=== PATIENT | male | born 1945 | race Caucasian/White ===

== ENCOUNTER 2024-07-06 18:43 | Emergency (ER) | payer MEDICARE, BC, SELFPAY ==
[2024-07-06 19:05] VITALS: BP 125/83; PULSE 104; RESP 18; TEMP 36.6; O2SAT 94; BMI 38.4
[2024-07-06 19:56] LABS: PCR FLU A Negative PCR FLU A (Negative); PCR FLU B Negative PCR FLU B (Negative); PCR RSV Negative PCR RSV (Negative); SARS PCR* Negative SARS-CoV-2 (Negative)
--- NOTE | 2024-07-06 20:27 | ED.GENADULT ---
HPI - General Adult General Chief complaint: Nausea/Vomiting Stated complaint: vomiting Time Seen by Provider: 07/06/24 20:26 History of Present Illness HPI narrative: Patient began to have cough and sore throat , then developed nausea and vomiting a day later. This has been since Thursday. Endorse lower generalized abdominal pain. No fevers. 79-year-old man presenting to the emergency department with complaint of vomiting and diarrhea. Symptoms began for 5 days ago with some cough and sore throat both of which have markedly improved. Is not short of breath not dizzy nor with chest pain. Three days ago developed nausea then vomiting and diarrhea the. This seemed to get better and then returned again this evening. Was having some abdominal pain across the low abdomen but particularly when he would just bend over. Maybe initially felt a little chilled but has not felt so since number as the measured a fever. No rashes. No particular exposures. was concerned in particular when tried to take some soup today and this came back up. He has been experience some heartburn and this seems to be part of the problem. No history abdominal surgeries. Is not feeling lightheaded. Did take a dose of loperamide maybe a couple days ago. Related Data Home Medications ?Medication ?Instructions ?Recorded ?Confirmed amlodipine 10 mg tablet 10 mg PO DAILY 07/06/24 07/06/24 atorvastatin 10 mg tablet 10 mg PO DAILY 07/06/24 07/06/24 finasteride 5 mg tablet 5 mg PO DAILY 07/06/24 07/06/24 glimepiride 2 mg tablet 2 mg PO DAILY 07/06/24 07/06/24 hydrochlorothiazide 25 mg tablet 25 mg PO DAILY 07/06/24 07/06/24 ketoconazole 2 % topical cream 1 applic topical 07/06/24 lisinopril 20 mg tablet 20 mg PO DAILY 07/06/24 07/06/24 metformin 500 mg tablet,extended 1,000 mg PO BID 07/06/24 07/06/24 release 24 hr metoprolol succinate 50 mg 50 mg PO DAILY 07/06/24 07/06/24 tablet,extended release 24 hr oxybutynin chloride 5 mg tablet 5 mg PO 3XD 07/06/24 07/06/24 timolol maleate 0.5 % eye drops drp ophthalmic (eye) 07/06/24 trazodone 50 mg tablet 100 mg PO QPM PRN 07/06/24 07/06/24 Allergies Allergy/AdvReac Type Severity Reaction Status Date / Time No Known Drug Allergies Allergy Verified 07/06/24 19:04 Review of Systems Status of ROS: Reports: 6 or more systems reviewed and unremarkable except as noted in History and below Exam Narrative: Exam Narrative: New pleasant. Tall. NAD. Breathing easily. Lungs are clear. With deep inspiratory effort cough a little bit. Oropharynx is edentulous. Hyperemic. Lips are moist. Cranial nerves 2-12 intact. Easily conversing. Heart in elevated rate but regular rhythm. Abdomen protuberant soft and not really tender. Present, normal bowel sounds. Post surgical scars in knees. No rashes noted. Well-perfused peripherally there is no lower extremity edema. Const: Vital Signs, click to edit/add: Vital Signs - 24 hr 07/06/24 19:05 Temperature 97.9 F Pulse Rate [Pulse Oximeter] 104 H Respiratory Rate 18 Blood Pressure [Ri ght Upper Arm] 125/83 Pulse Oximetry 94 Oxygen Delivery Me thod Room Air Documenting provider has reviewed patient's vital signs: yes Course Vital Signs Vital signs: Initial Vital Signs Temperature 97.9 F 07/06/24 19:05 Temperature Source Temporal Artery Scan 07/06/24 19:05 Pulse Rate 104 H 07/06/24 19:05 Respiratory Rate 18 07/06/24 19:05 Blood Pressure 125/83 07/06/24 19:05 Blood Pressure Mean 97 07/06/24 19:05 Pulse Oximetry 94 07/06/24 19:05 Oxygen Delivery Method Room Air 07/06/24 19:05 Vital Signs Temperature 97.9 F 07/06/24 19:05 Pulse Rate 104 H 07/06/24 19:05 Respiratory Rate 18 07/06/24 19:05 Blood Pressure 125/83 07/06/24 19:05 Pulse Oximetry 94 07/06/24 19:05 Oxygen Delivery Method Room Air 07/06/24 19:05 Temperature 97.9 F 07/06/24 19:05 Pulse Rate 104 H 07/06/24 19:05 Respiratory Rate 18 07/06/24 19:05 Blood Pressure 125/83 07/06/24 19:05 Pulse Oximetry 94 07/06/24 19:05 Oxygen Delivery Method Room Air 07/06/24 19:05 Medications Administered Medications: Discontinued Medications Generic Name Dose Route Start Last Admin Trade Name Thaddeus PRN Reason Stop Dose Admin Lidocaine/Aluminum/Magnesium/Simeth 30 ml 07/06/24 20:37 07/06/24 20:44 Gi Cocktail (Visc Lido/Antacid) 30 Ml PO 07/06/24 20:38 30 ml ONCE ONE Administration Ondansetron HCl 4 mg 07/06/24 20:37 07/06/24 20:44 Ondansetron Odt 4 Mg Tab PO 07/06/24 20:38 4 mg ONCE ONE Administration Medical Decision Making MDM Narrative Medical decision making narrative: Appears to have gastroenteritis NOS. I am reassured by presence of both vomiting and diarrhea. Do not think has a bowel obstruction. By the time I am seeing Mr. Chavez has tested negative for COVID and influenza. Seems less to be a colitis. Does have underlying history of diabetes which would otherwise be of concern. Did check his blood sugar yesterday at 245 Upon further questioning, has actually been keeping fluids down generally he feels. Discussed oral trial verses IV. After discussion decided to try oral challenge with Zofran and a GI cocktail. Might need loperamide. COVID negative Overall is improved on reassessment and is handling oral intake. Medical Records Medical records reviewed: Yes I reviewed the patient's medical records Lab Data Lab results reviewed: Yes I reviewed the patient's lab results Labs: Lab Results 07/06/24 Range/Units 19:10 SARS-CoV-2 (PCR) Negative SARS-CoV-2 (Negative) Influenza Type A (PCR) Negative PCR FLU A (Negative) Influenza Type B (PCR) Negative PCR FLU B (Negative) RSV (PCR) Negative PCR RSV (Negative) Discharge Plan Discharge Clinical Impression: Vomiting, Diarrhea, Gastritis Patient Disposition: Home w/ Parent or Adult Condition: Improved Instructions: Acute Abdominal Pain (ED) Additional Instructions: I am happy you have managed to keep some food down. Sending you with Zofran for nausea from [facility]. Might try a liquid antacid/anti-gas for heartburn. Can take more loperamide for diarrhea if needed as long as no blood in stool or experiencing a fever. Try to take in a L of fluid yet today. Start with diluted juices, soup broths. Then can advance diet further with rice, applesauce, toast, crackers Return for inability to maintain hydration, intractable vomiting or diarrhea, development now of fever, marked increase in persistent abdominal pain, persistent lightheadedness. Prescriptions: No Action trazodone 50 mg tablet 100 mg PO QPM PRN atorvastatin 10 mg tablet 10 mg PO DAILY metoprolol succinate 50 mg tablet extended release 24 hr 50 mg PO DAILY lisinopril 20 mg tablet 20 mg PO DAILY glimepiride 2 mg tablet 2 mg PO DAILY amlodipine 10 mg tablet 10 mg PO DAILY hydrochlorothiazide 25 mg tablet 25 mg PO DAILY timolol maleate 0.5 % drops ophthalmic (eye) ketoconazole 2 % cream 1 applic topical oxybutynin chloride 5 mg tablet 5 mg PO 3XD metformin 500 mg tablet extended release 24 hr 1,000 mg PO BID finasteride 5 mg tablet 5 mg PO DAILY Follow Up/Referrals: Tino Sigala MD [Primary Care Provider] - Stand Alone Forms: [facility] Info Instructions
[2024-07-06] MEDS: GI COCKTAIL (VISC LIDO/ANTACID) 30 ML PO (20:44)
[2024-07-06] MEDS: ONDANSETRON ODT 4 MG TAB PO (20:44)
== END 2024-07-06 21:54 | disposition home or self-care (01) ==
PROVIDERS: Emergency Provider Family Medicine; PCP Family Medicine
DX: R11.10 Vomiting, unspecified (principal); R19.7 Diarrhea, unspecified; K29.70 Gastritis, unspecified, without bleeding
CPT/HCPCS: 87631; 99283; 99284; A9270

== ENCOUNTER 2024-07-08 14:12 | Inpatient (IN) | payer MEDICARE, BC, SELFPAY ==
[2024-07-08] VITALS (10 sets, daily range): BP systolic 98–182; BP diastolic 66–90; PULSE 83–107; RESP 18–24; TEMP 36.8–37.3; O2SAT 89–96; BMI 36.9
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
--- NOTE | 2024-07-08 14:48 | CRLHL7_ITS ---
For Patients: As a result of the Century Cures Act, medical imaging exams and procedure reports are released immediately into your electronic medical record. You may view this report before your referring provider. If you have questions, please contact your health care provider. INDICATION: Vomiting, distention.. TECHNIQUE: CT abdomen and pelvis acquired with 135 cc Omnipaque 350 IV contrast. COMPARISON: None. FINDINGS: Lower chest: Tubular consolidation in the left lower lobe likely atelectasis or scarring. Ground-glass opacities in the right lower lobe likely atelectasis or scarring. Liver: Hepatic steatosis. No suspicious hepatic lesions identified. Gallbladder and bile ducts: Unremarkable. No stones or inflammation. No biliary dilatation. Pancreas: Unremarkable. No mass or inflammation. Spleen: Unremarkable. Normal in size. No masses. Adrenal glands: Nodular thickening of the left adrenal gland. Kidneys: No hydronephrosis or hydroureter. No renal or ureteral stones. GI tract: Mildly dilated loops of small bowel without definite transition point. The small bowel demonstrates a few areas of mild bowel wall thickening may represent peristalsis versus inflammation within these areas. Appendix is not well visualized. Mild thickening and fluid within the distal esophagus. Vasculature: Abdominal aorta is normal in caliber. Mesenteric arteries are patent. Calcific atherosclerosis of the aorta and iliac vessels. Lymph nodes: No lymphadenopathy. Peritoneum/Abdominal Wall: Unremarkable. No sign of mass or infiltration. No free air or significant free fluid. Pelvis: Unremarkable. Bones: Mild demineralization of the visualized bones. Multilevel degenerative changes in the spine. Fixation screws in the right ilium. Bilateral hip degenerative changes. IMPRESSION: 1. mildly dilated loops of small bowel proximally with distal tapering in the left mid abdomen without definite transition point. There are a couple areas of mild small bowel wall thickening which may be related to peristalsis or focal areas of infection/inflammation. 2. Mild thickening in the distal esophagus with small fluid, which may be related to esophagitis. The fluid is an aspiration risk. 3. Hepatic steatosis. Please note that all CT scans at this facility use dose modulation, iterative reconstruction, and/or weight-based dosing when appropriate to reduce radiation dose to as low as reasonably achievable. Dictated by Toni Son MD @ 07/08/2024 4:45:04 PM (Electronically Signed)
[2024-07-08 15:03] LABS: Basophils Percent Auto 0.1 % (0.0-3.0); Eosinophils Percent Auto 0.1 % (0.0-7.0); Hematocrit 46.5 % (37.0-53.0); Hemoglobin* 15.3 gm/dL (13.5-17.5); Lymphocytes Percent Auto 11.5 % (20-44); Mean Corpuscular HGB Conc 33 gm/dL (32-36); Mean Corpuscular Hemoglobin 28 pg (26-34); Mean Corpuscular Volume 86 fL (80-100); Monocytes Percent Auto 10.4 % (0.0-11.0); Neutrophils Percent Auto 76.9 % (42.0-72.0); Platelet Count* 404 K/uL (140-440); RDW Coefficient of Variation % 13.3 % (11.5-15.5); Red Blood Count 5.41 m/uL (4.30-5.90); White Blood Count* 13.78 K/uL (4.50-11.00)
[2024-07-08 15:06] LABS: Slide Review Reflex No
[2024-07-08 15:17] LABS: Albumin* 4.4 g/dL (3.3-5.0); Chloride* 100 mmol/L (96-114); Potassium* 3.6 mmol/L (3.6-5.1); Sodium* 141 mmol/L (135-149)
[2024-07-08 15:19] LABS: Anion Gap 14 mEq/L (7-15); Bilirubin Total* 0.9 mg/dL (0.1-1.5); Carbon Dioxide* 27 mmol/L (20-32); Creatinine* 1.5 mg/dL (0.5-1.5); Estimated Glomerular Filt Rate 47 ml/min
[2024-07-08 15:20] LABS: Alanine Aminotransferase* 33 U/L (4-50); Alkaline Phosphatase* 87 U/L (40-150); Aspartate Amino Transferase* 32 U/L (12-35); Blood Urea Nitrogen* 59 mg/dL (7-30); Calcium* 9.3 mg/dL (8.4-10.6); Glucose* 145 mg/dL (60-115); Lipase* 293 U/L (23-300); Total Protein* 7.7 g/dL (6.0-8.3)
[2024-07-08] MEDS: ONDANSETRON 2 MG/ML inj 4 MG IVP (15:20)
[2024-07-08] MEDS: PANTOPRAZOLE SODIUM 40 MG INJ IVP (15:20)
[2024-07-08] MEDS: 0.9 % SODIUM CHLORIDE 1000 ml 1,000 ML IV ×2 (15:28→17:28)
[2024-07-08 15:37] LABS: Troponin I* < 0.01 ng/mL (0.01-0.04)
[2024-07-08 17:37] LABS: Lactate* 2.5 mmol/L (0.5-1.9)
[2024-07-08] MEDS: GI COCKTAIL (VISC LIDO/ANTACID) 30 ML PO (17:38)
[2024-07-08] MEDS: METOCLOPRAMIDE HCL 5 MG/ML INJ 10 MG IVP (17:38)
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
[2024-07-08] MEDS: LACTATED RINGERS 1000 ML 1,000 ML IV (19:00)
[2024-07-08 19:05] LABS: Appearance Urine Clear (Clear); Bilirubin Urine Negative (Negative); Blood Urine Negative (Negative); Color Urine Yellow (Yellow); Glucose Urine Negative (Negative); Ketones Urine Negative (Negative); Leukocyte Esterase Urine Negative (Negative); Nitrite Urine Negative (Negative); Protein Urine Negative (Negative); Urobilinogen Urine 0.2 (0.2-1.0); pH Urine 6.5 (5.0-8.5)
[2024-07-08 19:22] LABS: RBC Urine 0-2 (0-2); WBC Urine 0-2 (0-5)
--- NOTE | 2024-07-08 19:51 | PM.EN ---
Chart Event Note Chart Event Note: Asked to review CT by hospitalist - patient with N/V x 5 days with diarrhea previously. is passing gas. Lactate elevated, was mildly tachycardic on presentation but also appears to be dehydrated. CT shows dilated proximal small bowel and stomach without a clear transition point. Patient does not appear acutely ill per hospitalist, abdomen is soft. Recommend NPO status and following lactate unless clinica picture worsens.
--- NOTE | 2024-07-08 20:12 | PC.NURSE ---
End of Shift: Patient pleasant and cooperative arrived to the floor about 1836. Patient hypertensive upon admission but stable and denies pain, urine sample collected upon admission.Patient SBA with cane. Patient currently has bolus running, IV patent.
[2024-07-08] MEDS: OMEPRAZOLE 20 MG CAPSULE DR PO (20:26)
[2024-07-08] MEDS: LACTATED RINGERS 1000 ML 1,000 ML 125 ML IV (20:27)
--- NOTE | 2024-07-08 20:59 | PC.NURSE ---
Bladder scan was 250ml and pt was able urinate 200ml.
[2024-07-09] VITALS (8 sets, daily range): BP systolic 134–160; BP diastolic 79–95; PULSE 81–103; RESP 16–20; TEMP 36.5–37.2; O2SAT 92–96
[2024-07-09] MEDS: LACTATED RINGERS 1000 ML 1,000 ML 125 ML IV ×3 (05:27→22:02)
--- NOTE | 2024-07-09 05:41 | PC.NURSE ---
Shift note: Pt had three BM, 1 small formed at 2100 and 2 large loose stools from 0300 to 0500. Pt vomited 1x and sample sent to lab. Blood sugar level at 2100 was 77, down from 84 at 1900. MD informed and asked to give fruit juice despite NPO status. Blood sugar rechecked at 2200 was 70. Fruit juice repeated and rechecked again at 2300 was 100. Ambulated with SBA in room to BR. Vitally stable. Pt has been on CPAP throughout the night.
[2024-07-09 05:55] LABS: Gastric Occult Blood* Negative (Negative)
[2024-07-09] MEDS: OMEPRAZOLE 20 MG CAPSULE DR PO (06:34)
[2024-07-09 06:53] LABS: Lactate* 1.6 mmol/L (0.5-1.9)
[2024-07-09 06:54] LABS: Basophils Percent Auto 0.3 % (0.0-3.0); Eosinophils Percent Auto 0.1 % (0.0-7.0); Hematocrit 46.6 % (37.0-53.0); Hemoglobin* 15.2 gm/dL (13.5-17.5); Immature Granulocytes Pct Auto 1.7 %; Lymphocytes Percent Auto 15.2 % (20-44); Mean Corpuscular HGB Conc 33 gm/dL (32-36); Mean Corpuscular Hemoglobin 28 pg (26-34); Mean Corpuscular Volume 87 fL (80-100); Monocytes Percent Auto 10.4 % (0.0-11.0); Neutrophils Percent Auto 72.3 % (42.0-72.0); Platelet Count* 346 K/uL (140-440); RDW Coefficient of Variation % 13.3 % (11.5-15.5); Red Blood Count 5.39 m/uL (4.30-5.90); White Blood Count* 14.77 K/uL (4.50-11.00)
[2024-07-09 06:56] LABS: Slide Review Reflex No
[2024-07-09 07:20] LABS: Chloride* 106 mmol/L (96-114)
[2024-07-09 07:21] LABS: Potassium* 3.6 mmol/L (3.6-5.1); Sodium* 140 mmol/L (135-149)
[2024-07-09 07:23] LABS: Creatinine* 1.3 mg/dL (0.5-1.5); Est. Creatinine Clearance* 49.88; Estimated Glomerular Filt Rate 56 ml/min
[2024-07-09 07:24] LABS: Anion Gap 10 mEq/L (7-15); Blood Urea Nitrogen* 51 mg/dL (7-30); Calcium* 8.9 mg/dL (8.4-10.6); Carbon Dioxide* 24 mmol/L (20-32); Glucose* 112 mg/dL (60-115)
--- NOTE | 2024-07-09 08:11 | P.GSCN_ITS ---
History of Present Illness Consult details Date Seen: 07/09/24 Consult date: 07/09/24 Narrative: The patient is a 79-year-old male who presented to the emergency department last evening with abdominal pain and vomiting for the last 5 days. He may have had an upper respiratory illness last week and then a few days later developed the nausea and vomiting. He had also been having diarrhea when his symptoms started, however this decreased in the last few days. He was seen in the emergency department and was given Zofran for the nausea. The patient declined imaging at that time. However he continued to have abdominal pain and vomiting and therefore return to be seen. Last evening he was noted to be tachycardic with a heart rate in the low 100s. He had evidence of dehydration and mild acute kidney injury with elevated BUN and creatinine. Lactate was also elevated at 4.0. This came down with fluid resuscitation. White blood cell count was elevated at 13. CT scan showed proximal dilatation of the stomach and small bowel with no definite transition point but decompressed distal small bowel. There was thickening present in areas which was thought to be secondary to enteritis. He was admitted to the hospital overnight for IV fluids. Lactate normalized and BUN creatinine had improved this morning the white count was persistently elevated. The patient was drinking juice overnight and was vomiting this morning with worsening abdominal pain. However, also this morning he states he had 2 large normal bowel movements. He has had no sick contacts. History of laparotomy after an accident in the 80s. His states they removed his appendix at that time and that his intestines were twisted around the appendix. [facility] Medical History (Updated 07/09/24 @ 08:13 by Urszula Lu MD) Hepatic steatosis ?K76.0 - Fatty (change of) liver, not elsewhere classified (ICD-10) Esophagitis ?K20.90 - Esophagitis, unspecified without bleeding (ICD-10) Obesity ?E66.9 - Obesity, unspecified (ICD-10) Diabetes mellitus ?E11.9 - Type 2 diabetes mellitus without complications (ICD-10) Hypertension ?I10 - Essential (primary) hypertension (ICD-10) Sleep apnea ?G47.30 - Sleep apnea, unspecified (ICD-10) Surgical History (Updated 07/08/24 @ 18:59 by Jake Mcleod MD) History of carpal tunnel release ?Z98.890 - Other specified postprocedural states (ICD-10) S/P TURP ?Z90.79 - Acquired absence of other genital organ(s) (ICD-10) H/O arthroscopic knee surgery ?Z98.890 - Other specified postprocedural states (ICD-10) History of appendectomy ?Z90.49 - Acquired absence of other specified parts of digestive tract (ICD- 10) H/O colonoscopy ?Z98.890 - Other specified postprocedural states (ICD-10) H/O exploratory laparotomy ?Z98.890 - Other specified postprocedural states (ICD-10) Family History (Updated 07/08/24 @ 19:00 by Jake Mcleod MD) Brother Asthma Diabetes Mother Throat cancer Father High blood pressure Social History (Updated 07/08/24 @ 19:00 by Jake Mcleod MD) Narrative: He lives with his who is designated healthcare power of environmental attorney. He does not smoke. He does not drink alcohol. Code status is full. What is your current living situation?: I presently have a place to live Problems where you live: no known problems Problems where you live details: none In the past 12 months, utilities in danger of being shut off: no In past 12 months, lack of transportation kept you from medical appts, meetings, work, or getting things needed for daily living: no In the past 12 mos, have been you worried that your food would run out before you had money to buy more?: never true In the past 12 mos, the food you bought just didn't last and you didn't have money to buy more?: never true Highest level of school completed/degree received: high school graduate Smoking Status: Former smoker What tobacco products do you use: cigarettes Smoking quit date/years: >15 years ago How often do you have a drink containing alcohol: never AUDIT-C Alcohol total score: 0 Non-prescribed substance use: denies use Caffeine: Yes (coffee) How often does anyone, including family, friends and others, physically hurt you : never How often does anyone, including family, friends and others, insult or talk down to you: never How often does anyone, including family, friends and others, threaten you with harm: never How often does anyone, including family, friends and others, scream or curse at you: never service: Yes Meds Home Medications and Allergies Home Medications ?Medication ?Instructions ?Recorded ?Confirmed ?Type amlodipine 10 mg tablet 10 mg PO DAILY 07/06/24 07/08/24 History atorvastatin 10 mg tablet 10 mg PO DAILY 07/06/24 07/08/24 History finasteride 5 mg tablet 5 mg PO DAILY 07/06/24 07/08/24 History glimepiride 2 mg tablet 2 mg PO DAILY 07/06/24 07/08/24 History hydrochlorothiazide 25 mg tablet 25 mg PO DAILY 07/06/24 07/08/24 History ketoconazole 2 % topical cream 1 applic topical DAILY 07/06/24 07/09/24 History lisinopril 20 mg tablet 20 mg PO DAILY 07/06/24 07/08/24 History metformin 500 mg tablet,extended 1,000 mg PO BID 07/06/24 07/08/24 History release 24 hr metoprolol succinate 50 mg 50 mg PO DAILY 07/06/24 07/08/24 History tablet,extended release 24 hr oxybutynin chloride 5 mg tablet 5 mg PO TID 07/06/24 07/09/24 History timolol maleate 0.5 % eye drops 1 drp ophthalmic (eye) Q12H 07/06/24 07/08/24 History trazodone 50 mg tablet 100 mg PO HS PRN 07/06/24 07/09/24 History latanoprost 0.005 % eye drops 1 drp ophthalmic (eye) HS 07/08/24 07/08/24 History Allergies Allergy/AdvReac Type Severity Reaction Status Date / Time No Known Drug Allergies Allergy Verified 07/08/24 15:54 Exam Narrative: Exam Narrative: General appearance: Alert, cooperative, and in no distress Eyes: PERRLA, eye lids clear, and sclera white HENT Head: Normocephalic Ears: External ears normal Pulmonary: Breathing nonlabored on room air Cardiovascular Heart: Regular rate Extremities: warm and well perfused Gastrointestinal Abdominal: Markedly protuberant though soft and minimally tender to palpation. Large midline scar noted. Musculoskeletal: Extremities: Upper: Both upper extremities have normal joint range of motion and intact strength. Lower: Both lower extremities have normal joint range of motion and intact strength. Skin: Normal skin color, texture, and turgor. Neurologic: No focal deficits Psychiatric: Alert, oriented, cooperative, normal affect. Const: Vital Signs, click to edit/add: Vital Signs - 24 hr 07/08/24 14:19 07/08/24 14:51 07/08/24 14:55 Temperature 98.3 F Pulse Rate 83 Pulse Rate [Pulse Oximeter] 107 H Respiratory Rate 24 Blood Pressure Blood Pressure [Le ft Arm] Blood Pressure [Ri ght Upper Arm] 98/66 122/76 Pulse Oximetry 93 90 Oxygen Delivery Me thod Room Air 07/08/24 14:57 07/08/24 15:00 07/08/24 17:51 Temperature Pulse Rate 96 89 Pulse Rate [Pulse Oximeter] 94 Respiratory Rate 18 Blood Pressure 122/76 Blood Pressure [Le ft Arm] Blood Pressure [Ri ght Upper Arm] 149/78 H Pulse Oximetry 89 91 95 Oxygen Delivery Me thod Room Air 07/08/24 18:37 07/08/24 19:00 07/08/24 22:00 Temperature 99.1 F 98.4 F Pulse Rate Pulse Rate [Pulse Oximeter] 102 H 86 Respiratory Rate 22 22 22 Blood Pressure Blood Pressure [Le ft Arm] 182/85 H 125/73 Blood Pressure [Ri ght Upper Arm] Pulse Oximetry 96 90 90 Oxygen Delivery Me thod Room Air Room Air Room Air 07/08/24 22:11 07/09/24 02:49 07/09/24 08:06 Temperature 98.3 F 98.2 F 98.2 F Pulse Rate Pulse Rate [Pulse Oximeter] 87 94 96 Respiratory Rate 22 20 18 Blood Pressure Blood Pressure [Le ft Arm] 146/90 H 134/84 143/79 H Blood Pressure [Ri ght Upper Arm] Pulse Oximetry 90 95 94 Oxygen Delivery Me thod Room Air Room Air Room Air 07/09/24 08:08 Temperature Pulse Rate Pulse Rate [Pulse Oximeter] 96 Respiratory Rate 18 Blood Pressure Blood Pressure [Le ft Arm] Blood Pressure [Ri ght Upper Arm] Pulse Oximetry Oxygen Delivery Me thod Results Labs Labs: White blood cell count today is 14 from 13. BUN is improved slightly to 51 from 59. Creatinine also improved 1.3 from 1.5. Lactate has normalized to 1.6 from 2.5 from 4.0 Imaging Additional studies: IMPRESSION: 1. mildly dilated loops of small bowel proximally with distal tapering in the left mid abdomen without definite transition point. There are a couple areas of mild small bowel wall thickening which may be related to peristalsis or focal areas of infection/inflammation. 2. Mild thickening in the distal esophagus with small fluid, which may be related to esophagitis. The fluid is an aspiration risk. 3. Hepatic steatosis. Dictated by Toni Son MD @ 07/08/2024 4:45:04 PM Progress Note:A&P Assessment and plan (1) Esophagitis: Status: Acute (2) Diabetes mellitus: Status: Acute (3) ADI (acute kidney injury): Status: Acute (4) Dehydration: Status: Acute (5) Vomiting: Status: Acute (6) Bowel obstruction: Status: Acute Plan The patient is a 79-year-old male with persistent nausea and vomiting for 5 days and proximal bowel dilatation seen on CT scan. Per radiology this may be consistent with a enteritis and the transition from proximal to distal seems to be more gradual than abrupt; however the marked proximal dilation and distal decompression could represent bowel obstruction, possibly secondary to stricture or inflammation. He also has a history of laparotomy after trauma so certainly adhesions could be causing obstruction. Given that clinically he has not entirely improved, though he did have a bowel movement today. and that he stills certainly clinically looks suspicious for at least a partial bowel obstruction, I recommend NG placement. Will attempt Gastrografin challenge after his stomach is decompressed. Continue to follow patient closely clinically. Regarding his 's comment about his intestines being twisted during his laparotomy in 1984, he does not appear to be completely malrotated. The duodenum appears to cross midline and his colon also appears to be in the appropriate location.
[2024-07-09] MEDS: ONDANSETRON 2 MG/ML inj 4 MG IVP (08:45)
--- NOTE | 2024-07-09 09:33 | CRLHL7_ITS ---
For Patients: As a result of the Cures Act, medical imaging exams and procedure reports are released immediately into your electronic medical record. You may view this report before your referring provider. If you have questions, please contact your health care provider. INDICATION: NG tube placement. FINDINGS: A single portable chest x-ray shows a normal cardiac silhouette. Enteric tube with the distal tip extending into the fundus of the stomach. The lungs are somewhat hypoventilated and show minimal right basilar atelectasis. No pneumothorax. IMPRESSION: Enteric tube with the distal tip extending into the fundus of the stomach. Dictated by Vasyl Osborn MD @ 07/09/2024 10:14:58 AM Dictated by: Vasyl Osborn MD @ 07/09/2024 10:15:06 (Electronically Signed)
[2024-07-09] MEDS: HYDROmorphone 0.5 mg/0.5 ml inj IVP ×2 (11:05→21:58)
--- NOTE | 2024-07-09 13:25 | P.IMPN_ITS ---
Progress Note: A&P Assessment and plan (1) Bowel obstruction: Problem details: - Suspect SBO: markedly distended abdomen, nausea, vomiting, CT dilated loops of small bowel. - I spoke with Dr. Lu who recommended NGT to LIS for the morning and start gastrografin challenge this afternoon. I went back and informed patient and his of the recommendation and plan. Holding oral meds. Status: Acute (2) Esophagitis: Problem details: Recent history of heartburn with CT findings of mild thickening in the distal esophagus with a small amount of fluid in the esophagus. Temporarily treat with PPI Status: Acute (3) Diabetes mellitus: Problem details: Hold oral hypoglycemics. Accuchecks q6h while NPO with sliding scale insulin. Status: Acute (4) Dehydration: Problem details: Resolved. Lactate improved. Continue IVF for maintenance. Status: Resolved Plan VTE prophylaxis: Paulino stockings and SCDs. Hold off on pharmacologic prophylaxis in case patient needs surgery. Subjective Time Seen by Provider: 07:53 Date Seen: 07/09/24 Interval history: Juan Manuel told me that he did okay overnight, but then said that he did have 2 glasses of clear liquids, grape juice and something else, around midnight, did okay for a few hours and then threw up around 5:00 a.m.. He tells me that he threw up the pain pill that he was given and he does not have anything else for pain. He is having pain in his epigastrium. Exam Narrative: Exam Narrative: General: No acute distress. Awake, alert, oriented x3. No pallor. No jaundice. Oropharynx: Clear. Mucous membranes moist. Cardiovascular: Regular rate and rhythm. No murmurs, gallops, or rubs. Respiratory: Clear to auscultation bilaterally. No wheezes or crackles. Abdomen: Bowel sounds tympanic. Markedly distended, soft, mild tenderness in the epigastrium, no rebound tenderness or guarding. Const: Vital Signs, click to edit/add: Vital Signs - 24 hr 07/08/24 14:19 07/08/24 14:51 07/08/24 14:55 Temperature 98.3 F Pulse Rate 83 Pulse Rate [Pulse Oximeter] 107 H Respiratory Rate 24 Blood Pressure Blood Pressure [Le ft Arm] Blood Pressure [Ri ght Upper Arm] 98/66 122/76 Pulse Oximetry 93 90 Oxygen Delivery Me thod Room Air 07/08/24 14:57 07/08/24 15:00 07/08/24 17:51 Temperature Pulse Rate 96 89 Pulse Rate [Pulse Oximeter] 94 Respiratory Rate 18 Blood Pressure 122/76 Blood Pressure [Le ft Arm] Blood Pressure [Ri ght Upper Arm] 149/78 H Pulse Oximetry 89 91 95 Oxygen Delivery Me thod Room Air 07/08/24 18:37 07/08/24 19:00 07/08/24 22:00 Temperature 99.1 F 98.4 F Pulse Rate Pulse Rate [Pulse Oximeter] 102 H 86 Respiratory Rate 22 22 22 Blood Pressure Blood Pressure [Le ft Arm] 182/85 H 125/73 Blood Pressure [Ri ght Upper Arm] Pulse Oximetry 96 90 90 Oxygen Delivery Me thod Room Air Room Air Room Air 07/08/24 22:11 07/09/24 02:49 07/09/24 08:06 Temperature 98.3 F 98.2 F 98.2 F Pulse Rate Pulse Rate [Pulse Oximeter] 87 94 96 Respiratory Rate 22 20 18 Blood Pressure Blood Pressure [Le ft Arm] 146/90 H 134/84 143/79 H Blood Pressure [Ri ght Upper Arm] Pulse Oximetry 90 95 94 Oxygen Delivery Me thod Room Air Room Air Room Air 07/09/24 08:08 07/09/24 11:50 Temperature 99.0 F Pulse Rate Pulse Rate [Pulse Oximeter] 96 97 Respiratory Rate 18 18 Blood Pressure Blood Pressure [Le ft Arm] 142/84 H Blood Pressure [Ri ght Upper Arm] Pulse Oximetry 96 Oxygen Delivery Me thod Room Air Labs Labs: Laboratory Results - last 24 hr 07/08/24 07/08/24 07/08/24 14:40 14:40 17:35 WBC 13.78 H RBC 5.41 Hgb 15.3 Hct 46.5 MCV 86 MCH 28 MCHC 33 RDW Coeff of Kamlesh 13.3 Plt Count 404 Neut % (Auto) 76.9 H Lymph % (Auto) 11.5 L [place] % (Auto) 10.4 Eos % (Auto) 0.1 Baso % (Auto) 0.1 Neut # (Auto) 10.60 H Lymph # (Auto) 1.60 [place] # (Auto) 1.40 H Eos # (Auto) 0.00 Baso # (Auto) 0.00 Abs Immat Gran (auto) 0.10 Imm/Tot Granulo (auto) 1.0 Sodium 141 Potassium 3.6 Chloride 100 Carbon Dioxide 27 Anion Gap 14 BUN 59 H Creatinine 1.5 Estimated Creat Clear Estimated GFR 47 Glucose 145 H Lactate 4.0 H 2.5 H Calcium 9.3 Total Bilirubin 0.9 AST 32 ALT 33 Alkaline Phosphatase 87 Troponin I < 0.01 L Total Protein 7.7 Albumin 4.4 Lipase 293 Cancelled Urine Color Urine Appearance Urine pH Ur Specific [place] Urine Protein Urine Glucose (UA) Urine Ketones Urine Blood Urine Nitrite Urine Bilirubin Urine Urobilinogen Ur Leukocyte Esterase Urine RBC Urine WBC Ur Squamous Epith Cells Urine Bacteria Gastric Fluid pH Gastric Occult Blood 07/08/24 07/08/24 07/09/24 18:56 21:00 06:46 WBC 14.77 H RBC 5.39 Hgb 15.2 Hct 46.6 MCV 87 MCH 28 MCHC 33 RDW Coeff of [place] 13.3 Plt Count 346 Neut % (Auto) 72.3 H Lymph % (Auto) 15.2 L [place] % (Auto) 10.4 Eos % (Auto) 0.1 Baso % (Auto) 0.3 Neut # (Auto) 10.70 H Lymph # (Auto) 2.20 [place] # (Auto) 1.50 H Eos # (Auto) 0.00 Baso # (Auto) 0.00 Abs Immat Gran (auto) 0.30 Imm/Tot Granulo (auto) 1.7 Sodium 140 Potassium 3.6 Chloride 106 Carbon Dioxide 24 Anion Gap 10 BUN 51 H Creatinine 1.3 Estimated Creat Clear 49.88 Estimated GFR 56 Glucose 112 Lactate 1.6 Calcium 8.9 Total Bilirubin AST ALT Alkaline Phosphatase Troponin I Total Protein Albumin Lipase Urine Color Yellow Urine Appearance Clear Urine pH 6.5 Ur Specific [place] 1.010 Urine Protein Negative Urine Glucose (UA) Negative Urine Ketones Negative Urine Blood Negative Urine Nitrite Negative Urine Bilirubin Negative Urine Urobilinogen 0.2 Ur Leukocyte Esterase Negative Urine RBC 0-2 Urine WBC 0-2 Ur Squamous Epith Cells None Urine Bacteria None Gastric Fluid pH 6.0 Gastric Occult Blood Negative
[2024-07-09] MEDS: BENZOCAINE/MENTHOL 1 EACH LOZENGE MUCOUS MEM ×3 (13:39→21:31)
[2024-07-09] MEDS: PANTOPRAZOLE SODIUM 40 MG INJ IVP (14:22)
[2024-07-09] MEDS: DIATRIZOATE MEGLUMINE, SODIUM 120 ML SOLUTION 90 ML NG (14:54)
--- NOTE | 2024-07-09 15:15 | PC.NURSE ---
End of Shift: Patient pleasant and cooperative, A&O. VSS, afebrile. Held medications this morning, per MD. NG tube inserted this shift, 61cm at the left nare. Patient reports pain in his abdomen this shift, managed with PRN medication, see MAR. NPO. SBA.
--- NOTE | 2024-07-09 21:00 | CRLHL7_ITS ---
For Patients: As a result of the Century Cures Act, medical imaging exams and procedure reports are released immediately into your electronic medical record. You may view this report before your referring provider. If you have questions, please contact your health care provider. INDICATION: Gastrografin challenge Gastrografin administered 1300 TECHNIQUE: Two view abdomen. FINDINGS: NG tube in the proximal stomach side port at the GE junction would recommend advancement. Diffuse gaseous distention of the bowel loops. Contrast opacifying the bladder. Contrast is not seen within the bowel loops. Postsurgical changes right ilium. Dictated by Elvi Osborn MD @ 07/09/2024 9:53:20 PM (Electronically Signed)
--- NOTE | 2024-07-09 22:48 | PC.NURSE ---
Pt VSS. A & O x3. NPO. NG tube in place, intact and patent. X-ray completed at 2100 to rule out small bowel obstruction. Waiting on results. Family has been at bedside throughout shift. c/o pain in chest area when coughs, 4/10. Up and ambulated with SBA at 2100 to use the bathroom and had an output of 700cc.
[2024-07-10] VITALS (8 sets, daily range): BP systolic 133–163; BP diastolic 79–100; PULSE 76–102; RESP 16–18; TEMP 36.5–36.9; O2SAT 96–97
--- NOTE | 2024-07-10 01:49 | PC.NURSE ---
At approximately 2325 last night, this RN and nurse dischargedust mixer pt's NG tube 10 cm per MD instruction after reviewing imaging results. Pt tolerated procedure well and has had no vomiting noted so far this shift.
[2024-07-10] MEDS: HYDROmorphone 0.5 mg/0.5 ml inj IVP ×3 (03:19→13:56)
[2024-07-10] MEDS: LACTATED RINGERS 1000 ML 1,000 ML 125 ML IV ×3 (05:27→23:52)
[2024-07-10 06:40] LABS: Basophils Percent Auto 0.2 % (0.0-3.0); Eosinophils Percent Auto 1.9 % (0.0-7.0); Hematocrit 43.6 % (37.0-53.0); Hemoglobin* 14.1 gm/dL (13.5-17.5); Immature Granulocytes Pct Auto 4.3 %; Lymphocytes Percent Auto 15.2 % (20-44); Mean Corpuscular HGB Conc 32 gm/dL (32-36); Mean Corpuscular Hemoglobin 28 pg (26-34); Mean Corpuscular Volume 87 fL (80-100); Monocytes Percent Auto 9.4 % (0.0-11.0); Platelet Count* 309 K/uL (140-440); RDW Coefficient of Variation % 13.6 % (11.5-15.5); White Blood Count* 12.89 K/uL (4.50-11.00)
--- NOTE | 2024-07-10 06:46 | PC.NURSE ---
End of shift note [id number]: Pt alert & oriented x 4 and able to make needs known. Pt has been on RA throughout the shift and has been afebrile. HR noted to be slightly tachycardic at 103 with 2300 VS check and 102 with 0300 VS check. Blood glucose values of 86 and 103 this shift. Pt has been refusing TEDs and SCDS despite education. Abdomen noted to be distended with hypoactive bowel sounds x 4. NG remains in place to LIS. One dose of PRN IV Dilaudid administered for report of 4/10 pain with coughing. 650 mL output noted via NG Tube throughout the shift. Pt has had no vomiting throughout the shift and has been denying nausea when asked. IV to R AC patent with LR running per order. Pt continent of bladder using toilet.
[2024-07-10 06:48] LABS: Slide Review Acceptable Review (Acceptable); Slide Review Reflex Yes
[2024-07-10 06:55] LABS: Chloride* 105 mmol/L (96-114); Potassium* 3.1 mmol/L (3.6-5.1); Sodium* 140 mmol/L (135-149)
[2024-07-10 06:58] LABS: Anion Gap 6 mEq/L (7-15); Blood Urea Nitrogen* 39 mg/dL (7-30); Carbon Dioxide* 29 mmol/L (20-32); Creatinine* 1.2 mg/dL (0.5-1.5); Est. Creatinine Clearance* 54.03; Estimated Glomerular Filt Rate 62 ml/min; Glucose* 105 mg/dL (60-115)
[2024-07-10 06:59] LABS: Calcium* 8.6 mg/dL (8.4-10.6)
[2024-07-10] MEDS: POTASSIUM CHLORIDE 10 MEQ/100 ML PIGGYBACK 100 MEQ IVPB ×2 (08:17→10:17)
[2024-07-10] MEDS: METOPROLOL TARTRATE 1 MG/ML inj 5 MG IVP ×3 (09:12→22:22)
[2024-07-10] MEDS: SODIUM CHLORIDE 0.9 % (FLUSH) 10 ML SYRINGE 5 ML IVF (09:13)
--- NOTE | 2024-07-10 11:03 | P.GSPN_ITS ---
Subjective Subjective Date Seen: 07/10/24 Interval history: Juan Manuel denies nausea. Has only a small amount of abdominal pain. He has not had a bowel movement since early yesterday morning when he was incontinent of loose stool. He states that he did pass gas since yesterday, most recently at 4:00 a.m. when he was sitting down on the toilet to urinate. Abdomen is less distended today. Gastrografin was given yesterday, however on the evening film, the Gastrografin was not noted. He received pain medication at 3:00 a.m. and 10:00 a.m. today, otherwise had not been getting pain medication. Exam Narrative: Exam Narrative: General: No acute distress NG in place. 4.5 L out since yesterday. CV: Mild tachycardia with heart rate 100 Abdomen: Protuberant and distended - Less so than yesterday - but soft. Nontender to palpation. Const: Vital Signs, click to edit/add: Vital Signs - 24 hr 07/09/24 11:50 07/09/24 15:00 07/09/24 15:00 Temperature 99.0 F 97.7 F Pulse Rate [Pulse Oximeter] 97 95 95 Respiratory Rate 18 18 18 Blood Pressure [Le ft Arm] 142/84 H 149/95 H Pulse Oximetry 96 93 Oxygen Delivery Me thod Room Air Room Air 07/09/24 19:00 07/09/24 23:00 07/09/24 23:25 Temperature 98.1 F 98.1 F Pulse Rate [Pulse Oximeter] 81 103 H 103 H Respiratory Rate 16 18 18 Blood Pressure [Le ft Arm] 160/88 H 145/89 H Pulse Oximetry 92 94 Oxygen Delivery Ak thod Room Air Room Air 07/10/24 03:20 07/10/24 07:45 07/10/24 08:27 Temperature 98.5 F 98.2 F Pulse Rate [Pulse Oximeter] 102 H 100 100 Respiratory Rate 18 18 18 Blood Pressure [Le ft Arm] 150/92 H 163/93 H Pulse Oximetry 96 97 Oxygen Delivery Ak thod Room Air Room Air Labs/Imaging Labs Labs: White blood cell count remains elevated at 12.8. Left shift has decreased however. Hypokalemia with potassium of 3.1. BUN and creatinine have improved. Imaging Imaging: CT images were again reviewed and discussed with Radiology. While there is no clear transition point, the clinical picture does still seem more consistent with a partial small-bowel obstruction. There is no obvious malrotation. x-ray from last evening reviewed: FINDINGS: NG tube in the proximal stomach side port at the GE junction would recommend advancement. Diffuse gaseous distention of the bowel loops. Contrast opacifying the bladder. Contrast is not seen within the bowel loops. Postsurgical changes right ilium. Dictated by Elvi Osborn MD @ 07/09/2024 9:53:20 PM Progress Note:A&P Assessment and plan (1) Hypertension: Status: Chronic (2) Bowel obstruction: Status: Acute (3) Esophagitis: Status: Acute (4) Diabetes mellitus: Status: Acute (5) Hypokalemia: Status: Acute Assessment and Plan: Hospitalist replacing Plan The patient is a 79-year-old male with now 1 week of vomiting and intermittent diarrhea. Symptoms seem clinically most likely to be secondary from possible partial small-bowel obstruction which would explain that he has had liquid stools and passed gas during this time. Gastrografin was not noted on his x- ray after administration. I suspect that it was suctioned out of his stomach. Clinically I am concerned about his heart rate being 100, however review of his record shows that he has not been getting metoprolol. This was just restarted this morning IV. Remains afebrile. White blood cell count is minimally down though he does not have a left shift any longer. Exam is relatively benign. His abdomen is much less distended and tender today. I discussed with the patient and his that it is not completely clear that he does have a bowel obstruction again since he has had reportedly 2 large stools approximately 36 hours ago, after he was in the hospital. This could represent a partial bowel obstruction given the clinical picture. I explained that there is risk of bowel ischemia and certainly I do not want to miss this and avoid operating, however because his clinical picture has appeared slightly better in some respects and the same or slightly worse than others,, it is difficult to determine whether or not he is improving. Since his abdomen is improved today and he was passing gas overnight, I suggested a Gastrografin challenge is attempted again. This time we will clamp the tube. If he develops nausea I would like to be notified. We will obtain an x-ray sooner than 8 hours to see where the Gastrografin is sitting at that time. They understand that we may consider surgery later today versus continuing to monitor overnight. If he were to develop worsening tachycardia worsening pain or any other change in his clinical picture then I would plan to proceed to the OR for exploration. I have updated nursing staff and the hospitalist on this plan.
[2024-07-10] MEDS: DIATRIZOATE MEGLUMINE, SODIUM 120 ML SOLUTION 90 ML NG (11:10)
[2024-07-10] MEDS: PANTOPRAZOLE SODIUM 40 MG INJ IVP (14:00)
--- NOTE | 2024-07-10 14:31 | PM.IMPN1 ---
Progress Note: A&P Assessment and plan (1) Bowel obstruction: Problem details: - possible SBO: markedly distended abdomen, nausea, vomiting, CT dilated loops of small bowel. Has had NGT to LIS with large amount of output since insertion. Gastrografin challenge yesterday did not produce results, but may not have had time to do so before being hooked back up to low intermittent suction. I appreciate Dr. Lu's recommendations. Doing a another Gastrografin challenge today. Patient remains NPO otherwise and surgeries possible later today depending on the results of the Gastrografin challenge. Status: Acute (2) Esophagitis: Problem details: Recent history of heartburn with CT findings of mild thickening in the distal esophagus with a small amount of fluid in the esophagus. Temporarily treat with PPI, currently being given IV. Status: Acute (3) Diabetes mellitus: Problem details: Hold oral hypoglycemics. Accuchecks 80s-100. Continue NPO sliding scale insulin. Status: Acute (4) Dehydration: Problem details: Resolved. Lactate improved. Continue IVF for maintenance. Status: Resolved Plan VTE prophylaxis: Paulino stockings and SCDs. Hold off on pharmacologic prophylaxis in case patient needs surgery. Time Spent With Patient Total time spent: Today I spent 25 minutes rounding on the patient. Greater than 50% included discussing care with the patient and his , Dr. Lu the team, reviewing data, updating and managing the care plan. Subjective Time Seen by Provider: 08:07 Date Seen: 07/10/24 Interval history: Juan Manuel tells me that he is feeling a bit better today, but still has pain when he hiccups or coughs. He denies any bowel movement since the 1st night of admission, specifically none since getting Gastrografin. I also spoke with his several times today in the hallway to give her an update. Exam Narrative: Exam Narrative: General: No acute distress. Awake, alert, oriented. Oropharynx: Clear. Mucous membranes moist. Cardiovascular: Regular rate and rhythm. No murmurs, gallops, or rubs. Respiratory: Clear to auscultation bilaterally. No wheezes or crackles. Abdomen: Bowel sounds hypoactive. A little less distended than yesterday, soft, nontender to palpation. Const: Vital Signs, click to edit/add: Vital Signs - 24 hr 07/09/24 15:00 07/09/24 15:00 07/09/24 19:00 Temperature 97.7 F 98.1 F Pulse Rate [Pulse Oximeter] 95 95 81 Respiratory Rate 18 18 16 Blood Pressure [Le ft Arm] 149/95 H 160/88 H Pulse Oximetry 93 92 Oxygen Delivery Me thod Room Air Room Air 07/09/24 23:00 07/09/24 23:25 07/10/24 03:20 Temperature 98.1 F 98.5 F Pulse Rate [Pulse Oximeter] 103 H 103 H 102 H Respiratory Rate 18 18 18 Blood Pressure [Le ft Arm] 145/89 H 150/92 H Pulse Oximetry 94 96 Oxygen Delivery Me thod Room Air Room Air 07/10/24 07:45 07/10/24 08:27 07/10/24 11:36 Temperature 98.2 F 98.3 F Pulse Rate [Pulse Oximeter] 100 100 96 Respiratory Rate 18 18 16 Blood Pressure [Le ft Arm] 163/93 H 133/80 Pulse Oximetry 97 96 Oxygen Delivery Me thod Room Air Room Air Labs Labs: Laboratory Results - last 24 hr 07/10/24 05:57 WBC 12.89 H RBC 5.00 Hgb 14.1 Hct 43.6 MCV 87 MCH 28 MCHC 32 RDW Coeff of Kamlesh 13.6 Plt Count 309 Neut % (Auto) 69.0 Lymph % (Auto) 15.2 L [place] % (Auto) 9.4 Eos % (Auto) 1.9 Baso % (Auto) 0.2 Neut # (Auto) 8.90 H Lymph # (Auto) 2.00 [place] # (Auto) 1.20 H Eos # (Auto) 0.20 Baso # (Auto) 0.00 Abs Immat Gran (auto) 0.60 H Imm/Tot Granulo (auto) 4.3 Diff Slide Review Acceptable Review Sodium 140 Potassium 3.1 L Chloride 105 Carbon Dioxide 29 Anion Gap 6 L BUN 39 H Creatinine 1.2 Estimated Creat Clear 54.03 Estimated GFR 62 Glucose 105 Calcium 8.6 Ordering Physician: Urszula Lu M.D. Date of Service: 07/09/24 Procedure(s): XR abd 1v-gastro challenge Accession Number(s): [id number] cc: Urszula Lu M.D.; Tino Sigala M.D.~ For Patients: As a result of the Century Cures Act, medical imaging exams and procedure reports are released immediately into your electronic medical record. You may view this report before your referring provider. If you have questions, please contact your health care provider. INDICATION: Gastrografin challenge Gastrografin administered 1300 TECHNIQUE: Two view abdomen. FINDINGS: NG tube in the proximal stomach side port at the GE junction would recommend advancement. Diffuse gaseous distention of the bowel loops. Contrast opacifying the bladder. Contrast is not seen within the bowel loops. Postsurgical changes right ilium. Dictated by Elvi Osborn MD @ 07/09/2024 9:53:20 PM (Electronically Signed)
--- NOTE | 2024-07-10 14:33 | PC.NURSE ---
End of Shift: Patient pleasant and cooperative, A&O. VSS, afebrile. Bowel sounds hypoactive this shift. Patient reports pain in his abdomen with coughing, managed with PRN medication, see MAR. NG output this shift was 400. NPO. SBA with cane to bathroom. No BM this shift. IV in left forearm patent.
--- NOTE | 2024-07-10 15:15 | CRLHL7_ITS ---
For Patients: As a result of the Century Cures Act, medical imaging exams and procedure reports are released immediately into your electronic medical record. You may view this report before your referring provider. If you have questions, please contact your health care provider. INDICATION: 8 hour after Gastroview TECHNIQUE: Four images of the abdomen and pelvis FINDINGS: NG tube in the stomach. Contrast within the stomach. Multiple dilated small bowel loops which are opacified with contrast. No definite contrast seen in the colon postsurgical changes right ilium Dictated by Elvi Osborn MD @ 07/10/2024 4:20:18 PM (Electronically Signed)
--- NOTE | 2024-07-10 18:54 | PC.NURSE ---
Pt. VSS with the exception of HR. HR was 105. PRN metoprolol given IV at 1615. Rechecked HR 2 hours later and was 78. No c/o pain. NPO with the exception of ice chips, 1/2 cup every 8 hours. Abd. x-ray done again at approx. 1545 to detect SBO. Amb with SBA and cane/holding onto IV pole.
[2024-07-10] MEDS: LATANOPROST 0.005% OPHTH 1 DROP EYE-BOTH (20:34)
[2024-07-11] VITALS (32 sets, daily range): BP systolic 100–195; BP diastolic 48–114; PULSE 71–110; RESP 12–116; TEMP 36.1–37; O2SAT 91–98
[2024-07-11] MEDS: METOPROLOL TARTRATE 1 MG/ML inj 5 MG IVP ×3 (04:32→23:47)
[2024-07-11] MEDS: LACTATED RINGERS 1000 ML 1,000 ML 125 ML IV ×2 (06:25→19:19)
[2024-07-11 06:28] LABS: Basophils Percent Auto 0.6 % (0.0-3.0); Eosinophils Percent Auto 2.4 % (0.0-7.0); Hematocrit 42.1 % (37.0-53.0); Hemoglobin* 13.4 gm/dL (13.5-17.5); Immature Granulocytes Pct Auto 5.4 %; Lymphocytes Percent Auto 15.3 % (20-44); Mean Corpuscular HGB Conc 32 gm/dL (32-36); Mean Corpuscular Hemoglobin 28 pg (26-34); Mean Corpuscular Volume 88 fL (80-100); Monocytes Percent Auto 8.1 % (0.0-11.0); Neutrophils Percent Auto 68.2 % (42.0-72.0); Platelet Count* 283 K/uL (140-440); RDW Coefficient of Variation % 13.5 % (11.5-15.5); Red Blood Count 4.76 m/uL (4.30-5.90); White Blood Count* 14.01 K/uL (4.50-11.00)
[2024-07-11 06:31] LABS: Slide Review Reflex No
--- NOTE | 2024-07-11 06:41 | PC.NURSE ---
End of shift note [id number]: Pt alert & oriented x 4 and able to make needs known. He transfers/ambulates with SBA using IV pole and he is able to reposition independently when in bed. IV to L forearm patent with LR running per order. Pt has been denying pain and nausea when asked with no vomiting noted. 2 doses of Metoprolol IVP given throughout the shift per order due to SBP over 140 and HR of 91 this morning. NGT remains in place to LIS per order and pt remains NPO- can have ? cup of ice chips Q8H per MD Lu. Pt did tolerate half cup of ice chips this morning. No BM this shift though bowel sounds noted to be improved when compared to 07/09/24. Bowel sounds noted to be active to LUQ and LLQ and hypoactive to RUQ and RLQ. He has had 1050 mL brown output via NGT throughout the shift. Pt continues to refuse TEDs and SCDs despite education. Call light within reach.
[2024-07-11 06:47] LABS: Chloride* 107 mmol/L (96-114)
[2024-07-11 06:48] LABS: Potassium* 3.5 mmol/L (3.6-5.1); Sodium* 141 mmol/L (135-149)
[2024-07-11 06:50] LABS: Est. Creatinine Clearance* 64.84; Estimated Glomerular Filt Rate 77 ml/min
[2024-07-11 06:51] LABS: Anion Gap 8 mEq/L (7-15); Blood Urea Nitrogen* 34 mg/dL (7-30); Calcium* 8.9 mg/dL (8.4-10.6); Carbon Dioxide* 26 mmol/L (20-32); Glucose* 120 mg/dL (60-115)
--- NOTE | 2024-07-11 08:10 | PM.GSPN ---
Subjective Subjective Date Seen: 07/11/24 Interval history: Juan Manuel was tachycardic overnight. He does not endorse increase in pain and has passed a small amount of gas but no stool. He is tearful this morning because he is worried that he is not getting better. Exam Narrative: Exam Narrative: General: Patient is comfortable in bed but worried NG in place - 1850 out yesterday CV: low tachycardia in high 90s Resp: breathing non-labored Abdomen is still distended but soft. Patient is minimally tender. Const: Vital Signs, click to edit/add: Vital Signs - 24 hr 07/10/24 08:27 07/10/24 11:36 07/10/24 15:00 Temperature 98.2 F 98.3 F Pulse Rate [Pulse Oximeter] 100 96 102 H Respiratory Rate 18 16 16 Blood Pressure [Le ft Arm] 163/93 H 133/80 Blood Pressure [Ri ght Arm] Pulse Oximetry 97 96 Oxygen Delivery Me thod Room Air Room Air 07/10/24 15:00 07/10/24 19:34 07/10/24 22:18 Temperature 97.7 F 98.1 F 98.4 F Pulse Rate [Pulse Oximeter] 102 H 102 H 76 Respiratory Rate 16 16 16 Blood Pressure [Le ft Arm] 145/98 H Blood Pressure [Ri ght Arm] 159/100 H 150/79 H Pulse Oximetry 97 97 96 Oxygen Delivery Me thod Room Air Room Air Room Air 07/10/24 23:00 07/11/24 03:18 07/11/24 04:22 Temperature 98.4 F Pulse Rate [Pulse Oximeter] 76 82 91 Respiratory Rate 16 16 Blood Pressure [Le ft Arm] Blood Pressure [Ri ght Arm] 143/81 H 145/72 H Pulse Oximetry 98 Oxygen Delivery Me thod Room Air 07/11/24 07:30 07/11/24 07:46 Temperature 98.1 F Pulse Rate [Pulse Oximeter] 97 97 Respiratory Rate 16 16 Blood Pressure [Le ft Arm] Blood Pressure [Ri ght Arm] 161/97 H Pulse Oximetry 94 Oxygen Delivery Me thod Room Air Labs/Imaging Labs Labs: WBC up to 14 today Potassium improved to 3.5 Progress Note:A&P Assessment and plan (1) Hypokalemia: Status: Acute (2) Bowel obstruction: Status: Acute (3) Esophagitis: Status: Acute (4) Diabetes mellitus: Status: Acute Plan The patient is a 79 year old male with likely SBo who has failed to improve with NG decompression and gastrograffin challenge. He has not had a significant increase in his pain but continues to have high NG output and WBC is up today and he had increased tachycardia overnight. I do think at this point it is not safe to continue to observe. I suspect partial obstruction as he has passed gas and was stooling 2 days prior but has had nothing since. I discussed this with the patient and he is agreeable to proceed with surgery urgently this morning.
[2024-07-11] MEDS: timoloL maleate 0.5 % 1 DROP EYE-BOTH (08:30)
[2024-07-11] MEDS: PIPERACILLIN/TAZOBACTAM 3.375 GM INJ IVPB (09:36)
--- NOTE | 2024-07-11 10:09 | PM.IMPN1 ---
Progress Note: A&P Assessment and plan (1) Bowel obstruction: Problem details: - probable SBO: markedly distended abdomen, nausea, vomiting, CT dilated loops of small bowel. WBC increasing, no results with two Gastrografin trials. Dr. Lu planning to OR this am. EKG from 07/08 and CXR from 07/09 reviewed. No further cardiopulmonary w/u needed prior to urgent surgery. Status: Acute (2) Esophagitis: Problem details: Recent history of heartburn with CT findings of mild thickening in the distal esophagus with a small amount of fluid in the esophagus. Temporarily treat with PPI, currently being given IV. Status: Acute (3) Diabetes mellitus: Problem details: Hold oral hypoglycemics. Accuchecks 100-110s. Continue NPO sliding scale insulin. Status: Acute (4) Dehydration: Problem details: Resolved. Lactate improved. Continue IVF for maintenance. Status: Resolved (5) Hypokalemia: Problem details: - Secondary to NGT suction/GI loss - Replace IV. Check magnesium level Status: Acute Plan VTE prophylaxis: Paulino stockings and SCDs. Hold off on pharmacologic prophylaxis in due to surgery today. Subjective Time Seen by Provider: 08:11 Date Seen: 07/11/24 Interval history: Juan Manuel notes no change. Pain in epigastrium only with cough/hiccup. He has only a small amount of flatus, no BMs. Exam Narrative: Exam Narrative: General: No acute distress. Awake, alert, oriented. Oropharynx: Clear. Mucous membranes moist. Cardiovascular: Regular rate and rhythm. No murmurs, gallops, or rubs. Respiratory: Clear to auscultation bilaterally. No wheezes or crackles. Abdomen: Bowel sounds hypoactive. A little less distended than yesterday, soft, nontender to palpation. General: Patient is comfortable in bed but worried NG in place - 1850 out yesterday CV: low tachycardia in high 90s Resp: breathing non-labored Abdomen is still distended but soft. Patient is minimally tender. Const: Vital Signs, click to edit/add: Vital Signs - 24 hr 07/10/24 11:36 07/10/24 15:00 07/10/24 15:00 Temperature 98.3 F 97.7 F Pulse Rate [Pulse Oximeter] 96 102 H 102 H Respiratory Rate 16 16 16 Blood Pressure [Le ft Arm] 133/80 145/98 H Blood Pressure [Ri ght Arm] Pulse Oximetry 96 97 Oxygen Delivery Me thod Room Air Room Air 07/10/24 19:34 07/10/24 22:18 07/10/24 23:00 Temperature 98.1 F 98.4 F Pulse Rate [Pulse Oximeter] 102 H 76 76 Respiratory Rate 16 16 16 Blood Pressure [Le ft Arm] Blood Pressure [Ri ght Arm] 159/100 H 150/79 H Pulse Oximetry 97 96 Oxygen Delivery Me thod Room Air Room Air 07/11/24 03:18 07/11/24 04:22 07/11/24 07:30 Temperature 98.4 F 98.1 F Pulse Rate [Pulse Oximeter] 82 91 97 Respiratory Rate 16 16 Blood Pressure [Le ft Arm] Blood Pressure [Ri ght Arm] 143/81 H 145/72 H 161/97 H Pulse Oximetry 98 94 Oxygen Delivery Me thod Room Air Room Air 07/11/24 07:46 Temperature Pulse Rate [Pulse Oximeter] 97 Respiratory Rate 16 Blood Pressure [Le ft Arm] Blood Pressure [Ri ght Arm] Pulse Oximetry Oxygen Delivery Me thod Labs Labs: Laboratory Results - last 24 hr 07/11/24 06:19 WBC 14.01 H RBC 4.76 Hgb 13.4 L Hct 42.1 MCV 88 MCH 28 MCHC 32 RDW Coeff of Kamlesh 13.5 Plt Count 283 Neut % (Auto) 68.2 Lymph % (Auto) 15.3 L [place] % (Auto) 8.1 Eos % (Auto) 2.4 Baso % (Auto) 0.6 Neut # (Auto) 9.60 H Lymph # (Auto) 2.10 [place] # (Auto) 1.10 H Eos # (Auto) 0.30 Baso # (Auto) 0.10 Abs Immat Gran (auto) 0.80 H Imm/Tot Granulo (auto) 5.4 Sodium 141 Potassium 3.5 L Chloride 107 Carbon Dioxide 26 Anion Gap 8 BUN 34 H Creatinine 1.0 Estimated Creat Clear 64.84 Estimated GFR 77 Glucose 120 H Calcium 8.9
--- NOTE | 2024-07-11 10:15 | SUR.OPER ---
PATIENT QUESTIONS ANSWERED SATISFACTORILY PREOPERATIVELY. PATIENT BROUGHT TO OR #4 PER CART. Patient positioned supine on OR # bed. The perioperative team supported arms bilaterally on arm boards. Final approval of positioning by surgeon.
--- NOTE | 2024-07-11 11:01 | SUR.OPER ---
PT. FAMILY UPDATED BY PHONE CALL AT 11:00.
--- NOTE | 2024-07-11 12:40 | P.GSOP_ITS ---
Operative Note Date of procedure: 07/11/24 Pre-op diagnosis: Small bowel obstruction with failure to improve with conservative management Post-op diagnosis: Same Type of Procedure: 1. Exploratory laparotomy 2. Lysis of adhesions Indications: The patient is a 79-year-old male who presented to the emergency department with [address] scan showed proximally dilated small bowel without a clear transition point. He had been having intermittent stools, however over the course of his hospitalization he had persistent vomiting worsening of symptoms. An NG tube was placed and 4.5 L of fluid was removed from his stomach the 1st day. Gastrografin challenge was attempted however the Gastrografin was suctioned out via the NG. Following day it was attempted again. There was improvement and passage of contrast into the small bowel and possibly the colon, however the patient continued to have no antegrade bowel function with high NG outputs. On hospital day 4, he was found to have a worsening elevated white count as well as worsening tachycardia overnight. He had been getting slightly more pain medication than he had been prior. Because of these findings I was concerned for at least a partial small bowel obstruction that was not resolving and recommended exploration. He agreed to proceed. Procedure Description: After discussing the risks and benefits of the procedure, the patient signed informed consent.? The operative site was marked and the patient was brought to the operating room and placed on the operating table in supine position.? Care was taken to pad the patient's pressure points.?? The patient was then intubated by anesthesia.??A tap block was performed by Anesthesia. Please see their note for details. The operative site was then prepped and draped in the usual sterile fashion.? A time-out was then performed. A midline incision was made through the patient's prior abdominal scar. Dissection was taken down into the subcutaneous fat using cautery. The fascia was encountered and carefully incised. A 1 cm preperitoneal fat containing yahir ia was noted in the midline. This was included in the incision. There were omental adhesions to the abdominal wall. This was taken down with a combination of cautery and sharp dissection with care to ensure there was no bowel contained within. Once this was done the Omni retractor was brought into the field and used to retract the abdominal wall. I began by attempting to identify the ligament Treitz. There was small bowel which was noted to be adherent to the mesentery of the transverse colon. I traced this back into the left upper quadrant, however was not able to identify definitively the ligament of Treitz. The small bowel here was noted to be dilated. There were multiple interloop adhesions between these dilated loops of bowel. I followed this proximally and it was noted to be densely adherent to the left upper retroperitoneum. I left this area in turned my attention to identifying the terminal ileum. Identify the cecum and terminal ileum and began tracing this retrograde. There were again here multiple interloop adhesions as well as adhesions to the retroperitoneum. Carefully I began lysing the retroperitoneal adhesions and the adhesions between segments of small bowel to free up the ileum. There was a segment in the mid small bowel which was diving posteriorly behind a loop of dilated proximal bowel which seemed to have created a twist in the mesentery. These adhesions were freed. The bowel all appeared viable without any sign of ischemia, however there was no abrupt transition point noted. I then continued proximally, carefully taking down adhesions using a combination of cautery and Metzenbaum scissors, mainly dividing adhesions between separate loops of bowel as well as freeing the small bowel from the retroperitoneal attachments to ensure there were no obstructing areas. Most of the local interloop adhesions were left in place unless there was concern for lead point for obstruction. I was eventually able to free up the small bowel to run it all the way from the ileocecal valve to the ligament of Treitz. Of note, the duodenum did exit the ligament Treitz in the appropriate location to the left of midline, however it is then turned and cross the midline to the right. This area was not the lead point in the obstruction and because the duodenum was quite stuck to the transverse colon mesentery, I did not divide these adhesions further 2 repositioned it in the left upper quadrant. The bowel was then run again and examined. It was palpated for masses. There were none. Two moderate-sized serosal tears encompassing 50% of the bowel wall were identified on the bowel that was densely adherent to the retroperitoneum. These were inherent to the nature of the operation. These were closed with imbricating interrupted silk suture transversely with care to avoid narrowing the bowel. The bowel was patent in both areas after closure of the tears. Once this was done, the colon was examined. It was palpated. There were no m asses. The sigmoid colon was noted to be extremely redundant. There was no sign of ischemia here however. The stomach was palpated and the NG to found to be in appropriate position. There was no significant bleeding noted within the abdomen at this point. Therefore the bowel was gently positioned back in the abdomen in its approximate anatomical location. Fascia was closed with running looped 0 Maxon. The skin was then closed in layers with 3-0 Vicryl dermal and 4-0 Monocryl running subcuticular suture. Sterile dressings were then applied. ? The patient was then woken and transported to the recovery area in stable condition. ? The patient tolerated the procedure well. Findings: 1. Multiple small bowel adhesions both to the retroperitoneum, between separate loops of bowel as well as interloop adhesions. 2. Adhesions noted in the the right mid abdomen which were tethering the bowel to the retroperitoneum behind a more proximal loop of bowel, possibly causing intermittent mesenteric volvulus Anesthesia: CARMELO Surgeon: Urszula Lu MD Estimated blood loss (mL): 100 Additional Specimen Information: None Condition: stable Disposition: PACU
--- NOTE | 2024-07-11 12:48 | W.PM.NB ---
Nerve Block Nerve Block Time Seen by Provider: 09:30 Date Seen: 07/11/24 Type of block requested by surgeon for post-operative analgesia: TAP Side: bilateral Time out performed: Yes Verification of patient name: Yes Verification of date of : Yes Name of person performing procedure: Jamal Pal Continuous monitoring Was continuous monitoring of O2 sat, B/P, monitor worker, recorded every 15 minutes?: Yes Procedure Checklist: sterile prep, needles and gloves Ultrasound guided. Images saved: Yes Medications given in 5ml increments after negative aspiration: Marcaine %: 0.25 mL: 30 Needle gauge: 20 and Exparel mL: 10 Needle gauge: 20 Patient tolerated procedure well: Yes Block Charges Block Charge (with Pro Fee): TAP Unilateral Use of Ultrasound Machine for Block: Yes- US Guidance/pain block
--- NOTE | 2024-07-11 12:50 | P.ANES_ITS ---
Anesthesia Charges Start Date/Time Anesthesia Start Date: 07/11/24 Anesthesia Start Time: 09:14 Stop Date/Time Anesthesia Stop Date: 07/11/24 Anesthesia Stop Time: 12:40 Summary Emergency: [employer]
[2024-07-11] MEDS: fentaNYL 100 MCG/2 ML inj 50 MCG IVP (13:09)
[2024-07-11] MEDS: HYDROmorphone 0.5 mg/0.5 ml inj IVP ×5 (14:06→23:25)
[2024-07-11] MEDS: POTASSIUM CHLORIDE 10 MEQ/100 ML PIGGYBACK 100 MEQ IVPB ×2 (14:29→15:22)
[2024-07-11] MEDS: PANTOPRAZOLE SODIUM 40 MG INJ IVP (14:29)
--- NOTE | 2024-07-11 17:40 | PC.NURSE ---
End of shift, pt has been very pleasant and kind. Pt alert & oriented x 4. he want to surgery and had a open bowel with lots of adhesions. dressing is C/D/I the bottom was reinforced for a small amount of bloody drainage he stood at bedside after surgery and voided 500. he was not dizzy or lightheaded. . IV to L forearm patent infusing with no problems. .pt has gotten 0.5 IV Dilaudid 3 times so far. abd pain 1-5/10 1 dose of Metoprolol IVP given after surgery.bs 198 @ 1800 NG is patent to LIS. teds and scds are on. he is ok to have ice chips per md au. IS to 2500. active ice to the abd. BS are hypoactive.
[2024-07-11] MEDS: LATANOPROST 0.005% OPHTH 1 DROP EYE-BOTH (20:38)
[2024-07-11] MEDS: SODIUM CHLORIDE 0.9 % (FLUSH) 10 ML SYRINGE 5 ML IVF (20:38)
[2024-07-11] MEDS: INSULIN ASPART 100 UNIT/ML SUBCUT (23:51)
[2024-07-12] VITALS (12 sets, daily range): BP systolic 113–176; BP diastolic 70–96; PULSE 93–111; RESP 16–18; TEMP 35.9–36.6; O2SAT 92–100
[2024-07-12] MEDS: LACTATED RINGERS 1000 ML 1,000 ML 125 ML IV ×3 (02:42→19:29)
[2024-07-12] MEDS: HYDROmorphone 0.5 mg/0.5 ml inj IVP ×4 (02:45→21:44)
[2024-07-12] MEDS: LABETALOL HCL 5 MG/ML inj 10 MG IVP (04:05)
[2024-07-12] MEDS: INSULIN ASPART 100 UNIT/ML SUBCUT ×2 (05:58→12:24)
[2024-07-12] MEDS: METOPROLOL TARTRATE 1 MG/ML inj 5 MG IVP (06:28)
[2024-07-12] MEDS: ONDANSETRON 2 MG/ML inj 4 MG IVP (06:31)
[2024-07-12 06:41] LABS: Basophils Percent Auto 0.4 % (0.0-3.0); Eosinophils Percent Auto 0.5 % (0.0-7.0); Hematocrit 45.3 % (37.0-53.0); Hemoglobin* 14.3 gm/dL (13.5-17.5); Immature Granulocytes Pct Auto 5.4 %; Lymphocytes Percent Auto 11.8 % (20-44); Mean Corpuscular HGB Conc 32 gm/dL (32-36); Mean Corpuscular Hemoglobin 28 pg (26-34); Mean Corpuscular Volume 89 fL (80-100); Monocytes Percent Auto 6.5 % (0.0-11.0); Neutrophils Percent Auto 75.4 % (42.0-72.0); Platelet Count* 332 K/uL (140-440); RDW Coefficient of Variation % 13.8 % (11.5-15.5); Red Blood Count 5.12 m/uL (4.30-5.90); White Blood Count* 20.19 K/uL (4.50-11.00)
--- NOTE | 2024-07-12 06:52 | PC.NURSE ---
End of shift note [id number]: Pt alert & oriented x 4 and able to make needs known. He has been continent of bladder using urinal at bedside. No BM noted this shift though bowel sounds noted to be active x [address] to LIS. Pt remains NPO with ice chips and is tolerating ice chips. He has had no vomiting noted this shift. B/P noted to be elevated at 166/96 and heart rate 110 last night. PRN Metoprolol given IVP per order. B/P of 172/96 and heart rate of 102 noted upon followup. [employer] then called [facility] and received new order for PRN Labetalol due to continued HTN and tachycardia. /10 abdominal pain managed with rest, repositioning, ice and PRN Dilaudid given IVP. Abdominal dressing reinforced and outlined last evening due to noting small amount of serosanguinous drainage. Pt compliant with SCDs for most of shift. He requested one dose of PRN Zofran this morning for nausea after new IV started to R hand. IV previously in place to L forearm stopped and discontinued due to site noted to be infiltrated. Pt remains on LR at 125 mLs/hr per order.
[2024-07-12 07:02] LABS: Chloride* 108 mmol/L (96-114); Potassium* 3.8 mmol/L (3.6-5.1); Sodium* 142 mmol/L (135-149)
[2024-07-12 07:05] LABS: Anion Gap 7 mEq/L (7-15); Blood Urea Nitrogen* 29 mg/dL (7-30); Carbon Dioxide* 27 mmol/L (20-32); Creatinine* 1.1 mg/dL (0.5-1.5); Est. Creatinine Clearance* 58.95; Estimated Glomerular Filt Rate 69 ml/min; Glucose* 158 mg/dL (60-115)
[2024-07-12 07:06] LABS: Calcium* 8.4 mg/dL (8.4-10.6); Magnesium* 2.5 mg/dL (1.5-2.6)
[2024-07-12 07:29] LABS: Slide Review Reflex Yes
[2024-07-12 07:30] LABS: Slide Review Acceptable Review (Acceptable)
[2024-07-12] MEDS: SODIUM CHLORIDE 0.9 % (FLUSH) 10 ML SYRINGE 5 ML IVF (08:40)
--- NOTE | 2024-07-12 08:44 | PM.GSPN ---
Subjective Subjective Date Seen: 07/12/24 Interval history: Stable. He had more pain in his mid abdomen overnight as to be expected postoperatively. He was able to void. He states that he does have some urinary retention at home at baseline. Exam Narrative: Exam Narrative: General: No acute distress HEENT: NG in place. Clear liquids noted in the tube as the patient is eating ice. One thousand three hundred as charted out, 225 in; has had about 500 out since surgery CV: Remains mildly tachycardic with a heart rate of 100. Respiratory: Breathing is nonlabored on room air Abdomen: Protuberant. Blood staining at the inferior aspect of the incision. Dressing was changed. Const: Vital Signs, click to edit/add: Vital Signs - 24 hr 07/11/24 12:35 07/11/24 12:40 07/11/24 12:45 Temperature 98.6 F Pulse Rate 86 85 84 Pulse Rate [Pulse Oximeter] Respiratory Rate 12 14 14 Blood Pressure 191/99 H 174/98 H 175/97 H Blood Pressure [Ri ght Arm] Pulse Oximetry 97 98 98 Oxygen Delivery Me thod OxyMask Nasal Cannula OxyM ask OxyMask Oxygen Flow Rate 10 07/11/24 12:50 07/11/24 12:55 07/11/24 13:00 Temperature 98.4 F Pulse Rate 92 85 87 Pulse Rate [Pulse Oximeter] Respiratory Rate 14 16 16 Blood Pressure 195/114 H 180/100 H 179/98 H Blood Pressure [Ri ght Arm] Pulse Oximetry 98 97 95 Oxygen Delivery Me thod OxyMask Room Air Oxygen Flow Rate 10 07/11/24 13:05 07/11/24 13:10 07/11/24 13:15 Temperature 98.3 F Pulse Rate 89 89 89 Pulse Rate [Pulse Oximeter] Respiratory Rate 16 18 14 Blood Pressure 182/98 H 172/95 H 179/99 H Blood Pressure [Ri ght Arm] Pulse Oximetry 95 96 95 Oxygen Delivery Me thod Room Air Oxygen Flow Rate 07/11/24 13:20 07/11/24 13:25 07/11/24 13:35 Temperature 98.3 F 98.3 F 98.1 F Pulse Rate 88 90 96 Pulse Rate [Pulse Oximeter] Respiratory Rate 16 14 12 Blood Pressure 169/95 H 176/95 H 148/86 H Blood Pressure [Ri ght Arm] Pulse Oximetry 95 94 91 Oxygen Delivery Me thod Room Air Room Air Room Air Oxygen Flow Rate 07/11/24 13:35 07/11/24 13:45 07/11/24 14:00 Temperature 98.1 F Pulse Rate 96 91 96 Pulse Rate [Pulse Oximeter] Respiratory Rate 12 12 73 H Blood Pressure 148/86 H 146/78 H 113/56 L Blood Pressure [Ri ght Arm] Pulse Oximetry 91 93 96 Oxygen Delivery Me thod Room Air Room Air Room Air Oxygen Flow Rate 10 10 07/11/24 14:15 07/11/24 14:33 07/11/24 14:48 Temperature Pulse Rate 71 71 78 Pulse Rate [Pulse Oximeter] Respiratory Rate 12 12 12 Blood Pressure 100/48 L 105/56 L 106/63 Blood Pressure [Ri ght Arm] Pulse Oximetry 93 91 91 Oxygen Delivery Me thod Room Air Room Air Room Air Oxygen Flow Rate 10 10 10 07/11/24 15:00 07/11/24 15:12 07/11/24 15:13 Temperature Pulse Rate 78 Pulse Rate [Pulse Oximeter] Respiratory Rate 14 12 12 Blood Pressure 105/58 L Blood Pressure [Ri ght Arm] Pulse Oximetry 92 91 Oxygen Delivery Me thod Room Air Room Air Oxygen Flow Rate 10 07/11/24 15:35 07/11/24 16:04 07/11/24 17:04 Temperature 98.3 F Pulse Rate 71 77 88 Pulse Rate [Pulse Oximeter] Respiratory Rate 12 14 14 Blood Pressure 110/65 122/67 125/76 Blood Pressure [Ri ght Arm] Pulse Oximetry 94 94 96 Oxygen Delivery Me thod Room Air Room Air Room Air Oxygen Flow Rate 10 10 10 07/11/24 18:00 07/11/24 19:15 07/11/24 19:28 Temperature 98.0 F 96.9 F L 96.9 F L Pulse Rate 89 87 Pulse Rate [Pulse Oximeter] 87 Respiratory Rate 116 H 16 16 Blood Pressure 125/76 139/83 Blood Pressure [Ri ght Arm] 139/83 Pulse Oximetry 97 97 97 Oxygen Delivery Me thod Room Air Room Air Room Air Oxygen Flow Rate 10 07/11/24 23:45 07/11/24 23:47 07/12/24 00:10 Temperature 97.4 F L Pulse Rate Pulse Rate [Pulse Oximeter] 110 H 110 H Respiratory Rate 18 18 18 Blood Pressure Blood Pressure [Ri ght Arm] 166/96 H Pulse Oximetry 93 93 Oxygen Delivery Me thod Room Air Oxygen Flow Rate 07/12/24 03:00 07/12/24 06:00 Temperature 96.7 F L Pulse Rate Pulse Rate [Pulse Oximeter] 102 H 105 H Respiratory Rate 18 Blood Pressure Blood Pressure [Ri ght Arm] 172/96 H 174/96 H Pulse Oximetry 96 Oxygen Delivery Me thod Room Air Oxygen Flow Rate Labs/Imaging Labs Labs: White blood cell count is up today to 20 from 14 yesterday. Electrolytes within normal limits. Progress Note:A&P Assessment and plan (1) Hypertension: Status: Chronic (2) Bowel obstruction: Status: Acute (3) Diabetes mellitus: Status: Acute (4) S/P exploratory laparotomy: Status: Acute Plan The patient is a 79-year-old male who is postop day 1 from exploratory laparotomy and adhesiolysis for presumed partial small-bowel obstruction. No obvious transition point noted, however there were multiple dense adhesions throughout his abdomen, particularly transitioning from the left to right lower quadrant where it did appear to be causing a twist in a. -he will likely have a prolonged ileus from the pre-existing obstruction and lysis of adhesions as well as repair of serosal tears. Recommend continuing NG dissection. Okay to try giving oral meds and clamping for an hour after. -he is okay to have ice chips and sips, however he should limit this around medication administration -encourage IS and ambulation - would benefit from PT -Lovenox for DVT prophylaxis -white blood cell count is up today. Likely a stress response. Will add on a CRP to trend these labs over the coming days.
--- NOTE | 2024-07-12 09:20 | NUTR.NU ---
RDN with nutrition screen related to weight loss since admit. Patient admitted 07/08/24 for partial bowel obstruction, postop day 1 from exploratory laparotomy and adhesiolysis. Current diet is NPO. Current weight 250 lbs 14.4oz; height 5ft 11in; BMI 35.0 kg/m2. Weight on admit was 264 lbs. Weight loss of 14 lbs is significant. Suspect this is related to no oral intakes for about 10 days. Per MD report, patient started vomiting Thursday07/03/24 and has had little to no oral intake since. Patient is at nutrition risk with weight loss and no oral intakes x10 days. RDN recommends initiating TPN/PPN within the next few days if patient's diet does not advance to at least full liquids or more. RDN will continue to monitor.
--- NOTE | 2024-07-12 11:00 | P.IMPN_ITS ---
Progress Note: A&P Assessment and plan (1) Bowel obstruction: Problem details: - probable SBO: markedly distended abdomen, nausea, vomiting, CT dilated loops of small bowel. WBC increasing, no results with two Gastrografin trials. Went to OR yesterday for ex lap by Dr. Lu. Appreciate her recommendations. Continue NGT to LIS. Await return of bowel function. Status: Acute (2) Esophagitis: Problem details: Recent history of heartburn with CT findings of mild thickening in the distal esophagus with a small amount of fluid in the esophagus. Temporarily treat with PPI, currently being given IV. Status: Acute (3) Diabetes mellitus: Problem details: Hold oral hypoglycemics. Accuchecks 150-190s. Continue NPO sliding scale insulin. Status: Acute (4) Dehydration: Problem details: Wt down 6kg from admit. Continue IVF for maintenance. Give IVF bolus today. Monitor weight and I/Os. Status: Resolved (5) Hypokalemia: Problem details: - Secondary to NGT suction/GI loss - Resolved, monitor as patient will still have GI loss while NG is on LIS. Status: Acute (6) Tachycardia: Problem details: - mild, regular rhythm. EKG from admission was NSR. Check EKG today. Do not need rate control for sinus tachycardia. Treat underlying cause: acute illness, pain, abdominal process, hypovolemia. Status: Acute Plan VTE prophylaxis: Paulino stockings and SCDs. Starting low dose enoxaparin today (surgery okay with this). Subjective Time Seen by Provider: 07:45 Date Seen: 07/12/24 Interval history: Juan Manuel tells me he has a bit of abdominal pain from surgery and feels a bit generally weak. He denies CP or SOB. No flatus or BM. He says he hasn't gotten out of bed other than to urinate by standing at bedside. Exam Narrative: Exam Narrative: General: No acute distress. Awake, alert, oriented. NGT in nares. Oropharynx: Clear. Mucous membranes moist. Cardiovascular: Regular rate and rhythm. No murmurs, gallops, or rubs. Respiratory: Clear to auscultation bilaterally. No wheezes or crackles. Abdomen: Dressing saturated inferiorly with serosanguineous fluid. Bowel sounds absent. Const: Vital Signs, click to edit/add: Vital Signs - 24 hr 07/11/24 12:35 07/11/24 12:40 07/11/24 12:45 Temperature 98.6 F Pulse Rate 86 85 84 Pulse Rate [Pulse Oximeter] Respiratory Rate 12 14 14 Blood Pressure 191/99 H 174/98 H 175/97 H Blood Pressure [Ri ght Arm] Pulse Oximetry 97 98 98 Oxygen Delivery Me thod OxyMask Nasal Cannula OxyM ask OxyMask Oxygen Flow Rate 10 10 07/11/24 12:50 07/11/24 12:55 07/11/24 13:00 Temperature 98.4 F Pulse Rate 92 85 87 Pulse Rate [Pulse Oximeter] Respiratory Rate 14 16 16 Blood Pressure 195/114 H 180/100 H 179/98 H Blood Pressure [Ri ght Arm] Pulse Oximetry 98 97 95 Oxygen Delivery Me thod OxyMask Room Air Oxygen Flow Rate 10 07/11/24 13:05 07/11/24 13:10 07/11/24 13:15 Temperature 98.3 F Pulse Rate 89 89 89 Pulse Rate [Pulse Oximeter] Respiratory Rate 16 18 14 Blood Pressure 182/98 H 172/95 H 179/99 H Blood Pressure [Ri ght Arm] Pulse Oximetry 95 96 95 Oxygen Delivery Me thod Room Air Oxygen Flow Rate 10 07/11/24 13:20 07/11/24 13:25 07/11/24 13:35 Temperature 98.3 F 98.3 F 98.1 F Pulse Rate 88 90 96 Pulse Rate [Pulse Oximeter] Respiratory Rate 16 14 12 Blood Pressure 169/95 H 176/95 H 148/86 H Blood Pressure [Ri ght Arm] Pulse Oximetry 95 94 91 Oxygen Delivery Me thod Room Air Room Air Room Air Oxygen Flow Rate 07/11/24 13:35 07/11/24 13:45 07/11/24 14:00 Temperature 98.1 F Pulse Rate 96 91 96 Pulse Rate [Pulse Oximeter] Respiratory Rate 12 12 73 H Blood Pressure 148/86 H 146/78 H 113/56 L Blood Pressure [Ri ght Arm] Pulse Oximetry 91 93 96 Oxygen Delivery Me thod Room Air Room Air Room Air Oxygen Flow Rate 10 10 07/11/24 14:15 07/11/24 14:33 07/11/24 14:48 Temperature Pulse Rate 71 71 78 Pulse Rate [Pulse Oximeter] Respiratory Rate 12 12 12 Blood Pressure 100/48 L 105/56 L 106/63 Blood Pressure [Ri ght Arm] Pulse Oximetry 93 91 91 Oxygen Delivery Me thod Room Air Room Air Room Air Oxygen Flow Rate 10 10 10 07/11/24 15:00 07/11/24 15:12 07/11/24 15:13 Temperature Pulse Rate 78 Pulse Rate [Pulse Oximeter] Respiratory Rate 14 12 12 Blood Pressure 105/58 L Blood Pressure [Ri ght Arm] Pulse Oximetry 92 91 Oxygen Delivery Me thod Room Air Room Air Oxygen Flow Rate 10 07/11/24 15:35 07/11/24 16:04 07/11/24 17:04 Temperature 98.3 F Pulse Rate 71 77 88 Pulse Rate [Pulse Oximeter] Respiratory Rate 12 14 14 Blood Pressure 110/65 122/67 125/76 Blood Pressure [Ri ght Arm] Pulse Oximetry 94 94 96 Oxygen Delivery Me thod Room Air Room Air Room Air Oxygen Flow Rate 10 10 10 07/11/24 18:00 07/11/24 19:15 07/11/24 19:28 Temperature 98.0 F 96.9 F L 96.9 F L Pulse Rate 89 87 Pulse Rate [Pulse Oximeter] 87 Respiratory Rate 116 H 16 16 Blood Pressure 125/76 139/83 Blood Pressure [Ri ght Arm] 139/83 Pulse Oximetry 97 97 97 Oxygen Delivery Me thod Room Air Room Air Room Air Oxygen Flow Rate 10 07/11/24 23:45 07/11/24 23:47 07/12/24 00:10 Temperature 97.4 F L Pulse Rate Pulse Rate [Pulse Oximeter] 110 H 110 H Respiratory Rate 18 18 18 Blood Pressure Blood Pressure [Ri ght Arm] 166/96 H Pulse Oximetry 93 93 Oxygen Delivery Me thod Room Air Oxygen Flow Rate 07/12/24 03:00 07/12/24 06:00 07/12/24 07:00 Temperature 96.7 F L Pulse Rate Pulse Rate [Pulse Oximeter] 102 H 105 H Respiratory Rate 18 Blood Pressure Blood Pressure [Ri ght Arm] 172/96 H 174/96 H Pulse Oximetry 96 99 Oxygen Delivery Me thod Room Air Room Air Oxygen Flow Rate 07/12/24 07:50 07/12/24 08:45 Temperature 97.9 F Pulse Rate Pulse Rate [Pulse Oximeter] 98 98 Respiratory Rate 16 16 Blood Pressure Blood Pressure [Ri ght Arm] 145/73 H Pulse Oximetry 99 Oxygen Delivery Me thod Room Air Oxygen Flow Rate Labs Labs: Laboratory Results - last 24 hr 07/12/24 07/12/24 06:30 08:43 WBC 20.19 H RBC 5.12 Hgb 14.3 Hct 45.3 MCV 89 MCH 28 MCHC 32 RDW Coeff of Kamlesh 13.8 Plt Count 332 Neut % (Auto) 75.4 H Lymph % (Auto) 11.8 L [place] % (Auto) 6.5 Eos % (Auto) 0.5 Baso % (Auto) 0.4 Neut # (Auto) 15.20 H Lymph # (Auto) 2.40 [place] # (Auto) 1.30 H Eos # (Auto) 0.10 Baso # (Auto) 0.10 Abs Immat Gran (auto) 1.10 H Imm/Tot Granulo (auto) 5.4 Diff Slide Review Acceptable Review Sodium 142 Potassium 3.8 Chloride 108 Carbon Dioxide 27 Anion Gap 7 BUN 29 Creatinine 1.1 Estimated Creat Clear 58.95 Estimated GFR 69 Glucose 158 H Calcium 8.4 Magnesium 2.5 C-Reactive Protein 16.0 H Lab Acknowledgement Test Added
[2024-07-12] MEDS: timoloL maleate 0.5 % 1 DROP EYE-BOTH (11:30)
[2024-07-12] MEDS: LACTATED RINGERS 500 ML 500 ML IV (12:06)
[2024-07-12] MEDS: ENALAPRILAT 1.25 MG/ML IVP ×3 (12:06→22:07)
[2024-07-12] MEDS: PANTOPRAZOLE SODIUM 40 MG INJ IVP (16:48)
--- NOTE | 2024-07-12 18:59 | PC.NURSE ---
Pt is pleasant, alert, and oriented. He is hypertensive ranging from 145/73 - 176/95, and tachycardic ranging from 97 ? 122, MD aware. Otherwise vitally stable. Pain well managed with IV dilaudid PRN. Dr. Lu changed his lower Abd dressing this morning due to small amounts of blood, the dressing is now clean, dry and intact. No BM noted this shift, bowel sounds are active in all 4 quadrants. Pt is NPO with ice chips and is tolerating well. NG is patent and draining green-brown liquid. Encouraged ambulation, up to chair with assist of 1.?
[2024-07-12] MEDS: ENOXAPARIN 40 MG/0.4 ML INJ SUBCUT (21:01)
[2024-07-12] MEDS: LATANOPROST 0.005% OPHTH 1 DROP EYE-BOTH (21:01)
[2024-07-13] VITALS (8 sets, daily range): BP systolic 110–167; BP diastolic 72–98; PULSE 94–102; RESP 16–18; TEMP 36.2–36.8; O2SAT 95–99; BMI 34.7
[2024-07-13] MEDS: LACTATED RINGERS 1000 ML 1,000 ML 125 ML IV ×3 (02:42→18:06)
[2024-07-13] MEDS: ENALAPRILAT 1.25 MG/ML IVP ×3 (04:12→22:32)
[2024-07-13] MEDS: HYDROmorphone 0.5 mg/0.5 ml inj IVP ×3 (04:12→21:16)
[2024-07-13 06:39] LABS: Basophils Percent Auto 0.4 % (0.0-3.0); Eosinophils Percent Auto 2.2 % (0.0-7.0); Hematocrit 38.1 % (37.0-53.0); Hemoglobin* 12.1 gm/dL (13.5-17.5); Immature Granulocytes Pct Auto 4.7 %; Lymphocytes Percent Auto 15.3 % (20-44); Mean Corpuscular HGB Conc 32 gm/dL (32-36); Mean Corpuscular Hemoglobin 29 pg (26-34); Mean Corpuscular Volume 90 fL (80-100); Monocytes Percent Auto 6.2 % (0.0-11.0); Neutrophils Percent Auto 71.2 % (42.0-72.0); Platelet Count* 291 K/uL (140-440); RDW Coefficient of Variation % 14.2 % (11.5-15.5); Red Blood Count 4.25 m/uL (4.30-5.90); White Blood Count* 15.66 K/uL (4.50-11.00)
[2024-07-13 06:45] LABS: Slide Review Reflex Yes
--- NOTE | 2024-07-13 06:47 | PC.NURSE ---
End of shift note [id number]: Pt alert & oriented x 4 and able to make needs known. Pt has been on RA and has been afebrile throughout the shift. He transfers/ambulates with SBA using FWW and GB. Pt remains on LR at 125 mLs/hr per order. He remains NPO though can have ice chips and sips per order. He requests ice chips frequently though try to limit per MD note. Blood glucose of 117 and 104 this shift. 4-610 abdominal pain managed with rest, repositioning, active ice and PRN Dilaudid. Scant amount of serosanguinous drainage shadow observed to old dressing. NGT remains in place to LIS with 750 mL gastric output noted throughout the shift. Pt ambulated in hallway last evening with SBA using FWW and GB. ?Pt continent of bladder using urinal. No BM this shift though bowel sounds remain active x 4. B/Ps of 150/70, 113/78 and 143/80 throughout the shift thought heart rate remains tachycardic with heart rate of 102-111 noted this shift.
[2024-07-13 07:05] LABS: Chloride* 109 mmol/L (96-114); Potassium* 3.6 mmol/L (3.6-5.1); Sodium* 142 mmol/L (135-149)
[2024-07-13 07:08] LABS: Anion Gap 10 mEq/L (7-15); Blood Urea Nitrogen* 21 mg/dL (7-30); Carbon Dioxide* 23 mmol/L (20-32); Creatinine* 1.1 mg/dL (0.5-1.5); Est. Creatinine Clearance* 58.95; Estimated Glomerular Filt Rate 69 ml/min
[2024-07-13 07:09] LABS: Calcium* 8.2 mg/dL (8.4-10.6); Glucose* 111 mg/dL (60-115)
[2024-07-13 07:28] LABS: Slide Review Acceptable Review (Acceptable)
[2024-07-13] MEDS: timoloL maleate 0.5 % 1 DROP EYE-BOTH (08:51)
--- NOTE | 2024-07-13 11:19 | PM.IMPN1 ---
Progress Note: A&P Assessment and plan (1) Bowel obstruction: Problem details: - probable SBO: markedly distended abdomen, nausea, vomiting, CT dilated loops of small bowel. WBC increasing, no results with two Gastrografin trials. Went to OR or ex lap by Dr. Lu. Appreciate her recommendations. Continue NGT to LIS. Await return of bowel function. Status: Acute (2) Esophagitis: Problem details: Recent history of heartburn with CT findings of mild thickening in the distal esophagus with a small amount of fluid in the esophagus. Temporarily treat with PPI, currently being given IV. Status: Acute (3) Diabetes mellitus: Problem details: Hold oral hypoglycemics. Accuchecks 100-150s. Continue NPO sliding scale insulin. Status: Acute (4) Dehydration: Problem details: Wt down 7kg from admit. Continue IVF for maintenance. Gave IVF bolus 07/12. Monitor weight and I/Os. Status: Resolved (5) Hypokalemia: Problem details: - Secondary to NGT suction/GI loss - Resolved, monitor as patient will still have GI loss while NG is on LIS. Status: Acute (6) Tachycardia: Problem details: - mild, regular rhythm. EKG from admission was NSR. EKG 07/12 sinus bradycardia. Do not need rate control for sinus tachycardia. Treat underlying cause: acute illness, pain, abdominal process, hypovolemia. Status: Acute Plan VTE prophylaxis: Paulino stockings and SCDs. Low dose enoxaparin. Subjective Time Seen by Provider: 08:13 Date Seen: 07/13/24 Interval history: Juan Manuel feels the same as yesterday. He walked yesterday evening. He denies CP or SOB. He says it wore him out because he hasn't walked that much in the last few days. No BM or flatus. Exam Narrative: Exam Narrative: General: No acute distress. Awake, alert, oriented. NGT in nares. Oropharynx: Clear. Mucous membranes moist. Cardiovascular: Regular rate and rhythm. No murmurs, gallops, or rubs. Respiratory: Clear to auscultation bilaterally. No wheezes or crackles. Abdomen: Dressing changed since yesterday. C/D/I. Some ruddiness to skin near inferior wound where serosanguineous drainage was yesterday, no induration. Bowel sounds present. Abd similarly distended to yesterday. . Const: Vital Signs, click to edit/add: Vital Signs - 24 hr 07/12/24 15:00 07/12/24 15:00 07/12/24 15:00 Temperature 97.4 F L Pulse Rate [Pulse Oximeter] 93 93 Respiratory Rate 16 16 16 Blood Pressure [Le ft Arm] Blood Pressure [Ri ght Arm] 176/95 H Pulse Oximetry 100 96 Oxygen Delivery Me thod Room Air Room Air 07/12/24 19:20 07/12/24 22:00 07/12/24 22:01 Temperature 97.4 F L 97.4 F L Pulse Rate [Pulse Oximeter] 102 H 111 H Respiratory Rate 18 18 18 Blood Pressure [Le ft Arm] 113/78 Blood Pressure [Ri ght Arm] 150/70 H Pulse Oximetry 96 92 92 Oxygen Delivery Ne thod Room Air Room Air Room Air 07/12/24 23:00 07/13/24 04:04 07/13/24 08:45 Temperature 97.1 F L 97.6 F Pulse Rate [Pulse Oximeter] 111 H 102 H 94 Respiratory Rate 18 16 18 Blood Pressure [Le ft Arm] 143/80 H Blood Pressure [Ri ght Arm] 110/98 H Pulse Oximetry 97 95 Oxygen Delivery Ne thod Room Air Room Air 07/13/24 09:00 07/13/24 09:00 Temperature Pulse Rate [Pulse Oximeter] 94 Respiratory Rate 18 18 Blood Pressure [Le ft Arm] Blood Pressure [Ri ght Arm] Pulse Oximetry 95 Oxygen Delivery Ne thod Room Air Labs Labs: Laboratory Results - last 24 hr 07/13/24 06:24 WBC 15.66 H RBC 4.25 L Hgb 12.1 L Hct 38.1 MCV 90 MCH 29 MCHC 32 RDW Coeff of [place] 14.2 Plt Count 291 Neut % (Auto) 71.2 Lymph % (Auto) 15.3 L [place] % (Auto) 6.2 Eos % (Auto) 2.2 Baso % (Auto) 0.4 Neut # (Auto) 11.10 H Lymph # (Auto) 2.40 [place] # (Auto) 1.00 H Eos # (Auto) 0.30 Baso # (Auto) 0.10 Abs Immat Gran (auto) 0.70 H Imm/Tot Granulo (auto) 4.7 Diff Slide Review Acceptable Review Sodium 142 Potassium 3.6 Chloride 109 Carbon Dioxide 23 Anion Gap 10 BUN 21 Creatinine 1.1 Estimated Creat Clear 58.95 Estimated GFR 69 Glucose 111 Calcium 8.2 L
--- NOTE | 2024-07-13 12:48 | PM.GSPN ---
Subjective Subjective Date Seen: 07/13/24 Interval history: Juan Manuel feels better today. He states that occasionally he feels some rumbling in his abdomen. Has not passed gas from below. He has been burping he states no nausea. He has been up walking. Exam Narrative: Exam Narrative: General: No acute distress HEENT: Bilious output in the NG canister. 900 mL out yesterday though had 500 mL in. Abdomen: Distended though minimally tender to palpation. Incision is clean. There is ecchymosis along the inferior aspect. No erythema. He does have bowel sounds on the left. Const: Vital Signs, click to edit/add: Vital Signs - 24 hr 07/12/24 15:00 07/12/24 15:00 07/12/24 15:00 Temperature 97.4 F L Pulse Rate [Pulse Oximeter] 93 93 Respiratory Rate 16 16 16 Blood Pressure [Le ft Arm] Blood Pressure [Ri ght Arm] 176/95 H Pulse Oximetry 100 96 Oxygen Delivery Me thod Room Air Room Air 07/12/24 19:20 07/12/24 22:00 07/12/24 22:01 Temperature 97.4 F L 97.4 F L Pulse Rate [Pulse Oximeter] 102 H 111 H Respiratory Rate 18 18 18 Blood Pressure [Le ft Arm] 113/78 Blood Pressure [Ri ght Arm] 150/70 H Pulse Oximetry 96 92 92 Oxygen Delivery Me thod Room Air Room Air Room Air 07/12/24 23:00 07/13/24 04:04 07/13/24 08:45 Temperature 97.1 F L 97.6 F Pulse Rate [Pulse Oximeter] 111 H 102 H 94 Respiratory Rate 18 16 18 Blood Pressure [Le ft Arm] 143/80 H Blood Pressure [Ri ght Arm] 110/98 H Pulse Oximetry 97 95 Oxygen Delivery Me thod Room Air Room Air 07/13/24 09:00 07/13/24 09:00 Temperature Pulse Rate [Pulse Oximeter] 94 Respiratory Rate 18 18 Blood Pressure [Le ft Arm] Blood Pressure [Ri ght Arm] Pulse Oximetry 95 Oxygen Delivery Me thod Room Air Labs/Imaging Labs Labs: White blood cell count today is down to 15 from 20. Electrolytes within normal limits Progress Note:A&P Assessment and plan (1) Tachycardia: Status: Acute (2) S/P exploratory laparotomy: Status: Acute (3) Hypokalemia: Status: Acute (4) Bowel obstruction: Status: Acute (5) Esophagitis: Status: Acute (6) Diabetes mellitus: Status: Acute Plan Juan Manuel is a 79-year-old male who is postop day 2 from exploratory laparotomy and lysis of adhesions for presumed bowel obstruction. She is doing better today overall. Still waiting for return of bowel function. -given the degree of bowel dilatation and the time that he has been ill, I recommend continuing the NG tube to suction today. He may have ice chips for comfort as he has been doing. -okay to clamp to for an hour after p.o. medications - he may or may not be absorbing with an ileus -Lovenox for DVT prophylaxis -ambulate and IS. Physical therapy ordered.
[2024-07-13] MEDS: PANTOPRAZOLE SODIUM 40 MG INJ IVP (15:29)
--- NOTE | 2024-07-13 15:43 | PC.NURSE ---
End of Shift: Patient pleasant and cooperative, A&O. VSS, afebrile. Held this mornings dose of enalaprilat due to a BP of 110/98. Patient reports pain in his abdomen this shift, managed with PRN medication, see MAR. NG at 71cm, 650ml output from NG this shift. NG is connected to LIS. Encouraged patient to ambulate this shift.
[2024-07-13] MEDS: ENOXAPARIN 40 MG/0.4 ML INJ SUBCUT (20:49)
[2024-07-13] MEDS: LATANOPROST 0.005% OPHTH 1 DROP EYE-BOTH (20:49)
[2024-07-14] VITALS (7 sets, daily range): BP systolic 131–173; BP diastolic 67–105; PULSE 90–104; RESP 16–20; TEMP 36.4–36.6; O2SAT 94–100
[2024-07-14] MEDS: LACTATED RINGERS 1000 ML 1,000 ML 125 ML IV (01:57)
[2024-07-14] MEDS: ENALAPRILAT 1.25 MG/ML IVP ×4 (04:45→22:00)
[2024-07-14] MEDS: HYDROmorphone 0.5 mg/0.5 ml inj IVP (04:45)
--- NOTE | 2024-07-14 06:21 | PC.NURSE ---
End of shift [id number]: A&O pleasant and cooperative. VSS. Denies n/v. Reporting 4-6/10 abdominal pain. See eMAR for interventions. BS active. Denies passing gas but pt states ?I feel things moving in there?. Ambulated w/ SBA walker and gait belt before bed. NG [facility] at [facility]. blood sugars stable overnight. Using call light appropriately.
[2024-07-14] MEDS: timoloL maleate 0.5 % 1 DROP EYE-BOTH (08:40)
--- NOTE | 2024-07-14 11:03 | CRLHL7_ITS ---
For Patients: As a result of the Century Cures Act, medical imaging exams and procedure reports are released immediately into your electronic medical record. You may view this report before your referring provider. If you have questions, please contact your health care provider. INDICATION: : PICC LINE PLACEMENT COMPARISON: Chest radiograph on July 10, 2024 TECHNIQUE: One view(s) of the chest FINDINGS/IMPRESSION: Left upper extremity PICC with tip overlying the expected position of the cavoatrial junction. Enteric tube with tip and side port projecting over the gastric body. The cardiomediastinal silhouette and pulmonary vasculature are unchanged. There is no focal airspace consolidation, pleural effusion, or pneumothorax. No displaced fractures. Dictated by John Crowell MD @ 07/14/2024 2:52:25 PM (Electronically Signed)
--- NOTE | 2024-07-14 11:31 | PM.GSPN ---
Subjective Subjective Date Seen: 07/14/24 Interval history: Juan Manuel states he is slowly feeling better. He has not passed any gas but he denies nausea. No belching. He feels that there is some rumbling in his abdomen. Exam Narrative: Exam Narrative: General: No acute distress CV: Heart rate is regular. Respiratory: Breathing nonlabored on room air Abdomen: Protuberant. Soft. Minimally tender. Incision is clean and dry. There is no erythema though he does have some ecchymosis around the inferior aspect of his incision. Const: Vital Signs, click to edit/add: Vital Signs - 24 hr 07/13/24 15:00 07/13/24 15:00 07/13/24 15:00 Temperature 98.3 F Pulse Rate [Pulse Oximeter] 102 H 102 H Respiratory Rate 18 18 18 Blood Pressure [Le ft Arm] Blood Pressure [Ri ght Arm] 166/89 H Pulse Oximetry 99 99 Oxygen Delivery Me thod Room Air Room Air 07/13/24 19:31 07/13/24 22:27 07/13/24 23:10 Temperature 97.7 F 97.7 F Pulse Rate [Pulse Oximeter] 98 98 Respiratory Rate 18 18 18 Blood Pressure [Le ft Arm] 167/91 H Blood Pressure [Ri ght Arm] 167/79 H Pulse Oximetry 96 97 97 Oxygen Delivery Me thod Room Air Room Air Room Air 07/14/24 04:43 07/14/24 07:00 07/14/24 07:00 Temperature 97.6 F Pulse Rate [Pulse Oximeter] 103 H 94 Respiratory Rate 20 18 Blood Pressure [Le ft Arm] 173/95 H 146/74 H Blood Pressure [Ri ght Arm] Pulse Oximetry 99 95 95 Oxygen Delivery Me thod Room Air Room Air Room Air 07/14/24 11:00 Temperature 97.8 F Pulse Rate [Pulse Oximeter] 90 Respiratory Rate 16 Blood Pressure [Le ft Arm] 131/68 Blood Pressure [Ri ght Arm] Pulse Oximetry 98 Oxygen Delivery Me thod Room Air Progress Note:A&P Assessment and plan (1) S/P exploratory laparotomy: Status: Acute (2) Hypertension: Status: Chronic (3) Bowel obstruction: Status: Acute (4) Diabetes mellitus: Status: Acute Plan The patient is a 79-year-old male who is postop day 3 after exploratory laparotomy lysis of adhesions for presumed small-bowel obstruction. He is doing better each day the we are waiting for return of bowel function. I suspect he will have prolonged ileus because of the amount of adhesiolysis that was necessary. -recommend continuing NG tube to suction for now. If he starts passing flatus this could be clamped. NG output has been appropriate; he is having 800 out but approximately 300 in. -agree with starting TPN since he has now been in the hospital for 1 week and was mainly NPO 5 days prior to admission. -continue Lovenox for DVT prophylaxis. -encourage IS and ambulation.
[2024-07-14] MEDS: lisinopriL 5 MG TABLET PO (12:07)
--- NOTE | 2024-07-14 12:20 | PM.IMPN1 ---
Progress Note: A&P Assessment and plan (1) S/P exploratory laparotomy: Problem details: - Lysis of adhesions on 07/11/2024 - postop ileus slowly resolving Status: Acute (2) Hypertension: Problem details: - Holding oral meds. Adding IV metoprolol prn for BP control. - given his poor IV access on 07/14/2024, will order a PICC line for TPN as well as IV medication administration Status: Chronic (3) Bowel obstruction: Problem details: - probable SBO: markedly distended abdomen, nausea, vomiting, CT dilated loops of small bowel. WBC increasing, no results with two Gastrografin trials. Went to OR or ex lap by Dr. Lu. Appreciate her recommendations. Continue NGT to LIS. Await return of bowel function. Status: Acute (4) Diabetes mellitus: Problem details: Hold oral hypoglycemics. Accuchecks 100-150s. Continue NPO sliding scale insulin. Status: Acute (5) Poor intravenous access: Problem details: - PICC ordered Status: Acute (6) Moderate protein-calorie malnutrition: Problem details: - minimal oral intake for the past 2 weeks as of 07/14/2024 - PICC ordered - will initiate TPN slowly and increase amount if needed and he is not able to resume adequate oral intake Status: Acute Plan 1. Reviewed impression and recommendations with patient and . 2. Answered their questions. 3. The agreeable with above stated plans and recommendations. 4. Discussed with Dr. Lu who is in agreement with above stated plans and recommendations. Time Spent With Patient Total time spent: 40 minute Subjective Date Seen: 07/14/24 Interval history: Hospital day 7, postoperative day 3: Small-bowel obstruction status post exploratory laparotomy with lysis of adhesions, and still having postop ileus at this time. Denies any bowel movements yet. Occasional belching. May be having flatus. Denies abdominal bloating, nausea, vomiting. Tolerating walking in the halls. Denies cardiopulmonary symptoms. Has had very little oral intake and now going on 2 weeks. Exam Narrative: Exam Narrative: Examined patient in his hospital room. Appears comfortable and in no acute distress. Alert and oriented x4. Friendly, articulate, cooperative. Lungs are clear to auscultation. Heart tones with regular rhythm, normal S1-S2. Abdomen with occasional bowel sounds, quiet. Soft. Nondistended. Moves all 4 extremities. Independent transfer, station, and gait. No tremor, asterixis, or ataxia. Cranial nerves 3-12 grossly normal. Difficult IV access. Const: Vital Signs, click to edit/add: Vital Signs - 24 hr 07/13/24 15:00 07/13/24 15:00 07/13/24 15:00 Temperature 98.3 F Pulse Rate [Pulse Oximeter] 102 H 102 H Respiratory Rate 18 18 18 Blood Pressure [Le ft Arm] Blood Pressure [Ri ght Arm] 166/89 H Pulse Oximetry 99 99 Oxygen Delivery Me thod Room Air Room Air 07/13/24 19:31 07/13/24 22:27 07/13/24 23:10 Temperature 97.7 F 97.7 F Pulse Rate [Pulse Oximeter] 98 98 Respiratory Rate 18 18 18 Blood Pressure [Le ft Arm] 167/91 H Blood Pressure [Ri ght Arm] 167/79 H Pulse Oximetry 96 97 97 Oxygen Delivery Me thod Room Air Room Air Room Air 07/14/24 04:43 07/14/24 07:00 07/14/24 07:00 Temperature 97.6 F Pulse Rate [Pulse Oximeter] 103 H 94 Respiratory Rate 20 18 Blood Pressure [Le ft Arm] 173/95 H 146/74 H Blood Pressure [Ri ght Arm] Pulse Oximetry 99 95 95 Oxygen Delivery Me thod Room Air Room Air Room Air 07/14/24 11:00 Temperature 97.8 F Pulse Rate [Pulse Oximeter] 90 Respiratory Rate 16 Blood Pressure [Le ft Arm] 131/68 Blood Pressure [Ri ght Arm] Pulse Oximetry 98 Oxygen Delivery Me thod Room Air
[2024-07-14] MEDS: OXYCODONE 1 MG/ML ORAL SOLN 10 MG PO (12:53)
[2024-07-14] MEDS: PANTOPRAZOLE SODIUM 40 MG INJ IVP (15:15)
[2024-07-14] MEDS: AA 5 %/CALCIUM/LYTES/DEXT 20 % 1,000 ML 25 ML IV (15:23)
--- NOTE | 2024-07-14 19:09 | PC.NURSE ---
Addendum entered by Argelia Garcia RN 07/14/24 19:28: Pt was up and walking 4x during shift. Original Note: End of shift [id number]: Pt A&O pleasant and cooperative. Pt denies N/V/SOB/CP. Pt experiences pain during position change during standing to begin a walk. PRN pain medication given prior to walk. Ice applied to abdomen per Pt request. BS hypoactive. Tolerating ice chips. Ambulated w/ SBA walker and gait belt. NG 72 at nares. blood sugars stable. IV infiltrated during shift. PICC placed per MD recommendation. TPN began, See JAN. Pt appears resting comfortably in bed with call light in reach.
[2024-07-14] MEDS: LATANOPROST 0.005% OPHTH 1 DROP EYE-BOTH (21:58)
[2024-07-14] MEDS: ENOXAPARIN 40 MG/0.4 ML INJ SUBCUT (21:58)
[2024-07-14] MEDS: SODIUM CHLORIDE 0.9 % (FLUSH) 10 ML SYRINGE 5 ML IVF (21:59)
[2024-07-14] MEDS: 0.9 % SODIUM CHLORIDE 1000 ml 1,000 ML 125 ML IV (22:01)
[2024-07-15] VITALS (7 sets, daily range): BP systolic 107–166; BP diastolic 57–95; PULSE 74–97; RESP 18–20; TEMP 36.2–36.6; O2SAT 96–99
[2024-07-15] MEDS: AA 5 %/CALCIUM/LYTES/DEXT 20 % 1,000 ML 50 ML IV (00:10)
[2024-07-15] MEDS: HYDROmorphone 0.5 mg/0.5 ml inj IVP ×3 (01:03→16:41)
[2024-07-15] MEDS: ENALAPRILAT 1.25 MG/ML IVP ×4 (04:22→22:32)
[2024-07-15] MEDS: INSULIN ASPART 100 UNIT/ML SUBCUT ×3 (06:43→18:08)
[2024-07-15 06:50] LABS: Hematocrit 36.4 % (37.0-53.0); Hemoglobin* 11.6 gm/dL (13.5-17.5); Mean Corpuscular HGB Conc 32 gm/dL (32-36); Mean Corpuscular Hemoglobin 28 pg (26-34); Mean Corpuscular Volume 88 fL (80-100); Platelet Count* 223 K/uL (140-440); Red Blood Count 4.13 m/uL (4.30-5.90); White Blood Count* 11.47 K/uL (4.50-11.00)
[2024-07-15 06:53] LABS: Slide Review Reflex No
--- NOTE | 2024-07-15 06:55 | PC.NURSE ---
Shift note : Pt A&O, afebrile, oxygen saturations >90% on room air. HTN, updated with no new orders. PRN Dilaudid given for pain with pt reporting relief. Steri strips to abdomen CDI with exception of scant old bloody drainage. Ice pack to abdomen. Bowel sounds Hypoactive, denies passing flatus. NG to LIS, 500ml brown output this shift. Denies N/V, CP, and SOB. PICC patent. Up SBA, walker, gait belt.
[2024-07-15 07:03] LABS: Albumin* 2.9 g/dL (3.3-5.0); Chloride* 108 mmol/L (96-114); Potassium* 3.3 mmol/L (3.6-5.1); Sodium* 140 mmol/L (135-149)
[2024-07-15 07:06] LABS: Anion Gap 5 mEq/L (7-15); Blood Urea Nitrogen* 14 mg/dL (7-30); Carbon Dioxide* 27 mmol/L (20-32); Cholesterol* 98 mg/dL (90-199); Creatinine* 0.9 mg/dL (0.5-1.5); Est. Creatinine Clearance* 64.84; Estimated Glomerular Filt Rate 87 ml/min; Glucose* 184 mg/dL (60-115); Triglycerides* 111 mg/dL (40-149)
[2024-07-15 07:07] LABS: Calcium* 8.4 mg/dL (8.4-10.6); HDL Cholesterol* 26 mg/dL (>=40); LDL Cholesterol Calculated 50 mg/dL (<100)
[2024-07-15] MEDS: AA 5 %/CALCIUM/LYTES/DEXT 20 % 1,000 ML 75 ML IV (08:54)
[2024-07-15] MEDS: timoloL maleate 0.5 % 1 DROP EYE-BOTH (09:33)
[2024-07-15] MEDS: SODIUM CHLORIDE 0.9 % (FLUSH) 10 ML SYRINGE 5 ML IVF ×2 (09:34→22:32)
--- NOTE | 2024-07-15 10:53 | PC.NURSE ---
pt feeling dizzy while sitting in recliner @1010. Pt BP 144/100. scheduled vasotec IV given and BP recheck @1050 155/74. Pt states dizziness gone
[2024-07-15] MEDS: POTASSIUM CHLORIDE 10 MEQ/100 ML PIGGYBACK 100 MEQ IVPB ×4 (13:08→16:34)
[2024-07-15] MEDS: PANTOPRAZOLE SODIUM 40 MG INJ IVP (13:52)
--- NOTE | 2024-07-15 14:07 | PM.GSPN ---
Subjective Subjective Date Seen: 07/15/24 Interval history: Patient's pain is mostly bothersome when he is moving around. The pain is controlled. Patient is not passing gas. He had 1 episode of nausea but no vomiting. He ambulated 5-6 times yesterday. He was started on IV nutrition. NG tube is still in place with 750 mL out yesterday. Exam Narrative: Exam Narrative: Abdomen is soft, protuberant, tender to palpation in bilateral mid abdomen with no peritoneal signs. Midline laparotomy incision is covered with Steries with no surrounding erythema. Const: Vital Signs, click to edit/add: Vital Signs - 24 hr 07/14/24 14:50 07/14/24 15:00 07/14/24 19:00 Temperature 97.7 F 97.6 F Pulse Rate [Pulse Oximeter] 94 104 H Respiratory Rate 18 18 Blood Pressure [Ri ght Arm] 146/67 H 154/80 H Pulse Oximetry 100 100 97 Oxygen Delivery Me thod Room Air Room Air Room Air 07/14/24 23:00 07/14/24 23:00 07/14/24 23:00 Temperature 97.8 F Pulse Rate [Pulse Oximeter] 90 Respiratory Rate 18 18 18 Blood Pressure [Ri ght Arm] 169/105 H Pulse Oximetry 94 94 Oxygen Delivery Me thod Room Air Room Air 07/15/24 03:00 07/15/24 08:10 07/15/24 08:10 Temperature 97.2 F L Pulse Rate [Pulse Oximeter] 90 74 Respiratory Rate 18 18 18 Blood Pressure [Ri ght Arm] 145/79 H Pulse Oximetry 96 99 Oxygen Delivery Vt thod Room Air Room Air 07/15/24 08:30 07/15/24 11:00 Temperature 97.1 F L 97.1 F L Pulse Rate [Pulse Oximeter] 74 97 Respiratory Rate 18 18 Blood Pressure [Ri ght Arm] 162/84 H 107/81 Pulse Oximetry 99 98 Oxygen Delivery Me thod Room Air Room Air Progress Note:A&P Assessment and plan (1) S/P exploratory laparotomy: Status: Acute Assessment and Plan: 79-year-old male s/p exploratory laparotomy POD 4. Will continue with IV nutrition. We will leave NG tube to suction, waiting for return of bowel function. Patient's WBC is improving. Patient is on Lovenox for DVT prophylaxis.
--- NOTE | 2024-07-15 14:39 | PC.NURSE ---
shift note: abd distended with absent BS x4. abd incision steri strips intact.LS dim throughout. IS done poorly @ 1500. PICC line patent with no redness or drainage. NG @ 72 in lt nare. 100cc greenish returns in container. pt up 1/walker/DRU. Verbal order from Dr. Rodriguez to hold NS while K+ IV infusing.
[2024-07-15] MEDS: AA 5 %/CALCIUM/LYTES/DEXT 20 % 1,000 ML 95 ML IV ×2 (15:34→22:36)
--- NOTE | 2024-07-15 16:26 | P.IMPN_ITS ---
Progress Note: A&P Assessment and plan (1) S/P exploratory laparotomy: Problem details: - Lysis of adhesions on 07/11/2024 - postop ileus slowly resolving - NG tube still in place Status: Acute (2) Bowel obstruction: Problem details: - probable SBO: markedly distended abdomen, nausea, vomiting, CT dilated loops of small bowel. WBC increasing, no results with two Gastrografin trials. Went to OR or ex lap by Dr. Lu. Appreciate her recommendations. Continue NGT to LIS. Await return of bowel function. Status: Acute (3) Moderate protein-calorie malnutrition: Problem details: - minimal oral intake for the past 2 weeks as of 07/14/2024 - PICC ordered - TPN initiated 07/14/2024 Status: Acute (4) Poor intravenous access: Problem details: - PICC ordered Status: Acute (5) Tachycardia: Problem details: - mild, regular rhythm. EKG from admission was NSR. EKG 07/12 sinus bradycardia. Do not need rate control for sinus tachycardia. Treat underlying cause: acute illness, pain, abdominal process, hypovolemia. Status: Acute (6) Hypokalemia: Problem details: - Secondary to NGT suction/GI loss - monitor as patient will still have GI loss while NG is on LIS and supplement as needed Status: Acute (7) Hypertension: Problem details: - Holding oral meds. Adding IV metoprolol prn for BP control. - given his poor IV access on 07/14/2024, will order a PICC line for TPN as well as IV medication administration Status: Chronic (8) Diabetes mellitus: Problem details: Hold oral hypoglycemics. Accuchecks 100-150s. Continue NPO sliding scale insulin. Status: Acute (9) Dehydration: Problem details: Wt down 7kg from admit. Continue IVF for maintenance. Gave IVF bolus 07/12. Monitor weight and I/Os. Status: Resolved Plan 1. Reviewed impression and recommendations with patient 2. Answered his questions 3. Patient agreeable with above stated plans and recommendations Time Spent With Patient Total time spent: 40 minutes Subjective Date Seen: 07/15/24 Interval history: Hospital day 8, postoperative day 4: Small-bowel obstruction status post exploratory laparotomy with lysis of adhesions, and presumably still having postop ileus at this time. Initiated TPN 07/14/24. Denies any bowel movements yet. Occasional belching. May be having flatus. Denies abdominal bloating, nausea, vomiting. Tolerating walking in the halls. Denies cardiopulmonary symptoms. Has had very little oral intake and now going on 2 weeks. Exam Narrative: Exam Narrative: I examine him in his room. Appears comfortable. Vision and hearing are adequate. Cooperative friendly. Lungs are clear to auscultation. Heart tones with regular rhythm. Abdomen is obese. Soft. Hypoactive bowel sounds. Upper and lower extremity edema. No focal motor neurologic deficits. Weight today on 07/15/2024 is 115.4 kg. On 07/13/2024 weight was 112.9 kg. On 07/08/2024 weight was 120 kg. Const: Vital Signs, click to edit/add: Vital Signs - 24 hr 07/14/24 19:00 07/14/24 23:00 07/14/24 23:00 Temperature 97.6 F Pulse Rate [Pulse Oximeter] 104 H Respiratory Rate 18 18 18 Blood Pressure [Le ft Arm] Blood Pressure [Ri ght Arm] 154/80 H Pulse Oximetry 97 94 Oxygen Delivery [place] thod Room Air Room Air 07/14/24 23:00 07/15/24 03:00 07/15/24 08:10 Temperature 97.8 F 97.2 F L Pulse Rate [Pulse Oximeter] 90 90 74 Respiratory Rate 18 18 18 Blood Pressure [Le ft Arm] Blood Pressure [Ri ght Arm] 169/105 H 145/79 H Pulse Oximetry 94 96 [facility] 07/15/24 08:10 07/15/24 08:30 07/15/24 11:00 Temperature 97.1 F L 97.1 F L Pulse Rate [Pulse Oximeter] 74 97 Respiratory Rate 18 18 18 Blood Pressure [Le ft Arm] Blood Pressure [Ri ght Arm] 162/84 H 107/81 Pulse Oximetry 99 99 98 Oxygen Delivery [place] thod Room Air Room Air Room Air 07/15/24 15:00 07/15/24 15:00 07/15/24 15:00 Temperature 98 F Pulse Rate [Pulse Oximeter] 78 78 Respiratory Rate 20 20 20 Blood Pressure [Le ft Arm] 149/57 H Blood Pressure [Ri ght Arm] Pulse Oximetry 98 98 Oxygen Delivery [place] thod Room Air Room Air Labs Labs: Laboratory Results - last 24 hr 07/15/24 06:15 WBC 11.47 H RBC 4.13 L Hgb 11.6 L Hct 36.4 L MCV 88 MCH 28 MCHC 32 Plt Count 223 Sodium 140 Potassium 3.3 L Chloride 108 Carbon Dioxide 27 Anion Gap 5 L BUN 14 Creatinine 0.9 Estimated Creat Clear 64.84 Estimated GFR 87 Glucose 184 H Calcium 8.4 Phosphorus 3.0 Albumin 2.9 L Triglycerides 111 Cholesterol 98 LDL Cholesterol, Calc 50 HDL Cholesterol 26 L
--- NOTE | 2024-07-15 18:47 | PC.NURSE ---
End of shift [id number]: Pt has been A&O, afebrile and VSS for these 4 hours. He is SBA with 2ww and gait belt. Pt received x4 bags IV K+ replacement for a level of 3.3 this morning. Non-pitting edema to bilat forearms and hands. Maintenance fluids discontinued and TPN increased to 95 mL/hr. LUE PICC patent and intact. Midline incision intact with steri strips and old, dried drainage. No BM this shift. Pt received PRN Dilaudid @ 1640 after his walk. NG is patent in left nare, measuring at 72cm. Sifuentes, green drainage from tube with a total output last 4 hours: 100 mL. 1800 B; 4 units Novolog given. Lipids beginning tonight and scheduled MWF. ?
[2024-07-15] MEDS: LATANOPROST 0.005% OPHTH 1 DROP EYE-BOTH (21:22)
[2024-07-15] MEDS: ENOXAPARIN 40 MG/0.4 ML INJ SUBCUT (21:22)
[2024-07-16] VITALS (8 sets, daily range): BP systolic 135–182; BP diastolic 85–110; PULSE 88–93; RESP 18–20; TEMP 36–37.1; O2SAT 96–99
[2024-07-16] MEDS: INSULIN ASPART 100 UNIT/ML SUBCUT ×4 (00:20→18:38)
[2024-07-16] MEDS: ENALAPRILAT 1.25 MG/ML IVP ×4 (04:10→22:50)
--- NOTE | 2024-07-16 06:55 | PC.NURSE ---
Shift note: Pt continue on the NG tube. Total of 4ooml of green-brownish gastric content for the 12hr shift. Pt ambulated with A1, walker and GB. Pain is minimal rated at 2, managed with ice pack. No bowel sound. Pt denied passing gas and attempted to have bowel movement but unsuccessful. TPN and Lipid infusing at 95 and 14ml/hr respectively. NPO status maintained.
[2024-07-16 07:59] LABS: Hematocrit 36.4 % (37.0-53.0); Hemoglobin* 11.8 gm/dL (13.5-17.5); Mean Corpuscular HGB Conc 32 gm/dL (32-36); Mean Corpuscular Hemoglobin 28 pg (26-34); Mean Corpuscular Volume 88 fL (80-100); Platelet Count* 226 K/uL (140-440); Red Blood Count 4.16 m/uL (4.30-5.90); White Blood Count* 10.38 K/uL (4.50-11.00)
[2024-07-16 08:13] LABS: Slide Review Reflex No
[2024-07-16] MEDS: ONDANSETRON 2 MG/ML inj 4 MG IVP (08:15)
[2024-07-16 08:22] LABS: Albumin* 2.9 g/dL (3.3-5.0); Chloride* 107 mmol/L (96-114); Potassium* 3.5 mmol/L (3.6-5.1); Sodium* 138 mmol/L (135-149)
[2024-07-16 08:24] LABS: Cholesterol* 110 mg/dL (90-199)
--- NOTE | 2024-07-16 08:24 | PM.GSPN ---
Subjective Subjective Date Seen: 07/16/24 Interval history: Patient is doing well. He felt gag E with dry throat and dry mouth today. He did not vomit. His NG put out minimal amounts of fluids since yesterday. He possibly passed gas twice. He ambulated multiple times. His last pain medication was yesterday. Exam Narrative: Exam Narrative: Abdomen is soft, obese, not distended, slightly tender to palpation in the right mid abdomen but not the left side, improved from yesterday. Const: Vital Signs, click to edit/add: Vital Signs - 24 hr 07/15/24 08:30 07/15/24 11:00 07/15/24 15:00 Temperature 97.1 F L 97.1 F L Pulse Rate [Pulse Oximeter] 74 97 78 Respiratory Rate 18 18 20 Blood Pressure [Le ft Arm] Blood Pressure [Ri ght Arm] 162/84 H 107/81 Pulse Oximetry 99 98 Oxygen Delivery Me thod Room Air Room Air 07/15/24 15:00 07/15/24 15:00 07/15/24 19:00 Temperature 98 F 97.5 F L Pulse Rate [Pulse Oximeter] 78 87 Respiratory Rate 20 20 20 Blood Pressure [Le ft Arm] 149/57 H Blood Pressure [Ri ght Arm] 159/95 H Pulse Oximetry 98 98 96 Oxygen Delivery Me thod Room Air Room Air Room Air 07/15/24 22:26 07/15/24 22:26 07/15/24 22:26 Temperature 97.5 F L Pulse Rate [Pulse Oximeter] 96 96 Respiratory Rate 20 20 20 Blood Pressure [Le ft Arm] Blood Pressure [Ri ght Arm] 166/95 H Pulse Oximetry 98 98 Oxygen Delivery Me thod Room Air Room Air 07/16/24 03:00 Temperature 97.3 F L Pulse Rate [Pulse Oximeter] 88 Respiratory Rate 20 Blood Pressure [Le ft Arm] Blood Pressure [Ri ght Arm] 182/97 H Pulse Oximetry 97 Oxygen Delivery Me thod Room Air Progress Note:A&P Assessment and plan (1) S/P exploratory laparotomy: Status: Acute Assessment and Plan: 79-year-old male s/p exploratory laparotomy for small-bowel obstruction POD 5. Will clamp patient's NG tube and advance him to sips of clears with NG tube in place. I would not continue advancing his diet and allow him to advance slowly. If passes more gas tomorrow and continues to do well tomorrow, possible remove NG tomorrow.
[2024-07-16 08:25] LABS: Anion Gap 6 mEq/L (7-15); Blood Urea Nitrogen* 16 mg/dL (7-30); Calcium* 8.5 mg/dL (8.4-10.6); Carbon Dioxide* 25 mmol/L (20-32); Creatinine* 0.8 mg/dL (0.5-1.5); Est. Creatinine Clearance* 64.84; Estimated Glomerular Filt Rate 91 ml/min; Glucose* 261 mg/dL (60-115); HDL Cholesterol* 25 mg/dL (>=40); LDL Cholesterol Calculated 55 mg/dL (<100); Phosphorus* 3.3 mg/dL (2.5-4.5); Triglycerides* 149 mg/dL (40-149)
[2024-07-16] MEDS: timoloL maleate 0.5 % 1 DROP EYE-BOTH (10:24)
[2024-07-16] MEDS: HYDROmorphone 0.5 mg/0.5 ml inj IVP ×2 (10:25→15:38)
[2024-07-16] MEDS: AA 5 %/CALCIUM/LYTES/DEXT 20 % 2,000 ML 95 ML IV (10:38)
[2024-07-16] MEDS: POTASSIUM CHLORIDE 10 MEQ/100 ML PIGGYBACK 100 MEQ IVPB ×3 (15:38→17:47)
[2024-07-16] MEDS: PANTOPRAZOLE SODIUM 40 MG INJ IVP (16:03)
--- NOTE | 2024-07-16 16:10 | P.IMPN_ITS ---
Progress Note: A&P Assessment and plan (1) Bowel obstruction: Problem details: - probable SBO: markedly distended abdomen, nausea, vomiting, CT dilated loops of small bowel. WBC increasing, no results with two Gastrografin trials. Went to OR or ex lap by Dr. Lu. Await return of bowel function. - will clamp NG tube today. Attempt sips of water and if tolerates then will advance to clear liquids. Advance to full liquids slowly. Status: Acute (2) S/P exploratory laparotomy: Problem details: - Lysis of adhesions on 07/11/2024 - postop ileus slowly resolving - NG tube still in place, but will clamp as of 07/16/2024 Status: Acute (3) Moderate protein-calorie malnutrition: Problem details: - minimal oral intake for the past 2 weeks as of 07/14/2024 - PICC ordered - TPN initiated 07/14/2024 and continue until the time that he is able to demonstrate he is tolerating oral intake Status: Acute (4) Poor intravenous access: Problem details: - PICC placed on 07/14/2024 Status: Acute (5) Hypokalemia: Problem details: - Secondary to NGT suction/GI loss - monitor as patient will still have GI loss while NG is on LIS and supplement as needed Status: Acute (6) Hypertension: Problem details: - Holding oral meds. Adding IV metoprolol prn for BP control. - given his poor IV access on 07/14/2024, will order a PICC line for TPN as well as IV medication administration Status: Chronic (7) Diabetes mellitus: Problem details: Hold oral hypoglycemics. Accuchecks 100-150s. Continue NPO sliding scale insulin. Status: Acute (8) Dehydration: Problem details: Wt 119.9 kg on admit. Initially treated with IVF. Now on TPN. Monitor weight and I/Os. Status: Resolved (9) Physical debility: Problem details: -working with PT and OT Status: Acute (10) Physical deconditioning: Problem details: -working with PT and OT Status: Acute Plan 1. Reviewed impression and recommendations with patient. 2. Discussed with his general surgeon, Dr. Fernandez. 3. Patient agreeable with above stated plans and recommendations. Time Spent With Patient Total time spent: 35 minutes Subjective Date Seen: 07/16/24 Interval history: Hospital day 9, postoperative day 5: Small-bowel obstruction status post exploratory laparotomy with lysis of adhesions, and presumably still having postop ileus at this time. Initiated TPN 07/14/24. Denies any bowel movements yet. Occasional belching. Now passing flatus. Denies abdominal bloating, nausea, vomiting. Tolerating walking in his room and in halls. Denies cardiopulmonary symptoms. Gaining some strength. Has had very little oral intake over the past 2 weeks. Tolerating TPN. Exam Narrative: Exam Narrative: Examined in his hospital room. Appears comfortable and in no acute distress. Transfers and ambulates with standby assist and use of his walker. Lungs clear to auscultation. Heart tones with regular rhythm. Abdomen is obese with active bowel sounds now, soft. Continues to have a fullness of upper and lower extremities without pitting edema. Weight today 115.1 kg. Weight on 07/15/2024 was 115.9 kg. Weight on 07/14/2024 was 113.9 kg. Weight on admission was 119.9 kg. Const: Vital Signs, click to edit/add: Vital Signs - 24 hr 07/15/24 19:00 07/15/24 22:26 07/15/24 22:26 Temperature 97.5 F L Pulse Rate [Pulse Oximeter] 87 96 Respiratory Rate 20 20 20 Blood Pressure [Ri ght Arm] 159/95 H Pulse Oximetry 96 98 [facility] 07/15/24 22:26 07/16/24 03:00 07/16/24 07:00 Temperature 97.5 F L 97.3 F L Pulse Rate [Pulse Oximeter] 96 88 93 Respiratory Rate 20 20 18 Blood Pressure [Ri ght Arm] 166/95 H 182/97 H Pulse Oximetry 98 97 Oxygen Delivery [place] thod Room Air Room Air 07/16/24 07:00 07/16/24 08:31 07/16/24 10:56 Temperature 98.1 F 97.1 F L Pulse Rate [Pulse Oximeter] 93 93 Respiratory Rate 18 18 18 Blood Pressure [Ri ght Arm] 135/97 H 146/98 H Pulse Oximetry 96 98 96 [facility] Room Air 07/16/24 16:07 Temperature 96.8 F L Pulse Rate [Pulse Oximeter] 90 Respiratory Rate 18 Blood Pressure [Ri ght Arm] 157/110 H Pulse Oximetry 96 Oxygen Delivery Me thod Room Air Labs Labs: Laboratory Results - last 24 hr 07/16/24 07:40 WBC 10.38 RBC 4.16 L Hgb 11.8 L Hct 36.4 L MCV 88 MCH 28 MCHC 32 Plt Count 226 Sodium 138 Potassium 3.5 L Chloride 107 Carbon Dioxide 25 Anion Gap 6 L BUN 16 Creatinine 0.8 Estimated Creat Clear 64.84 Estimated GFR 91 Glucose 261 H Calcium 8.5 Phosphorus 3.3 Albumin 2.9 L Triglycerides 149 Cholesterol 110 LDL Cholesterol, Calc 55 HDL Cholesterol 25 L
--- NOTE | 2024-07-16 18:11 | PC.NURSE ---
shift note: vss stable. pt up 1/walker/GB in hatch x3. pt medicated x2 with prn dilaudid for RLQ pain 02/16. pt passed flatus x1. pt belching occasionally. LS clr. pt using IS indept. PICC line patent and site intact
--- NOTE | 2024-07-16 18:13 | PC.NURSE ---
shift note: pt nauseated this a.m. pt medicated with prn zofran with relief.
[2024-07-16] MEDS: LATANOPROST 0.005% OPHTH 1 DROP EYE-BOTH (21:13)
[2024-07-16] MEDS: ENOXAPARIN 40 MG/0.4 ML INJ SUBCUT (21:13)
[2024-07-16] MEDS: SODIUM CHLORIDE 0.9 % (FLUSH) 10 ML SYRINGE 5 ML IVF (21:13)
[2024-07-17] MEDS: INSULIN ASPART 100 UNIT/ML SUBCUT ×2 (00:13→05:32)
[2024-07-17 04:45] VITALS: BP 158/94; PULSE 98; RESP 16; TEMP 36.4; O2SAT 98
[2024-07-17] MEDS: SODIUM CHLORIDE 0.9 % (FLUSH) 10 ML SYRINGE 5 ML IVF ×2 (05:09→20:44)
[2024-07-17] MEDS: ENALAPRILAT 1.25 MG/ML IVP ×2 (05:10→09:38)
[2024-07-17] MEDS: HYDROmorphone 0.5 mg/0.5 ml inj IVP (05:22)
--- NOTE | 2024-07-17 06:23 | PC.NURSE ---
END OF SHIFT NOTE: A&Ox4. PT DENIES CP, SOB, N/V. NG IN PLACE AND CLAMPED @72CM IN LEFT NARE. BS HYPOACTIVE. PASSING FLATUS. UP WITH SBA, DRU CASILLAS. ABDOMINAL VERTICAL MIDLINE INCISION C/D/I WITH STERI STRIPS. PT RATES ABD DISCOMFORT 3-4/10 WITH RELIEF FROM PRN MED, REST AND ACTIVE ICE. TPN@95ML/HR. ACCU CHECKS 187 & 191 SS ADMINISTERED PER PROTOCOL. PT DID NOT WEAR CPAP DURING HS D/T NG PLACEMENT.
[2024-07-17 08:38] VITALS: BP 167/102; PULSE 92; RESP 18; TEMP 36.4; O2SAT 97
[2024-07-17 09:05] LABS: Hematocrit 36.9 % (37.0-53.0); Hemoglobin* 11.8 gm/dL (13.5-17.5); Mean Corpuscular HGB Conc 32 gm/dL (32-36); Mean Corpuscular Hemoglobin 28 pg (26-34); Mean Corpuscular Volume 88 fL (80-100); Platelet Count* 227 K/uL (140-440); Red Blood Count 4.18 m/uL (4.30-5.90); White Blood Count* 9.47 K/uL (4.50-11.00)
[2024-07-17 09:08] LABS: Slide Review Reflex No
[2024-07-17 09:26] LABS: Albumin* 2.8 g/dL (3.3-5.0); Chloride* 104 mmol/L (96-114); Potassium* 4.2 mmol/L (3.6-5.1); Sodium* 137 mmol/L (135-149)
[2024-07-17 09:29] LABS: Anion Gap 7 mEq/L (7-15); Blood Urea Nitrogen* 20 mg/dL (7-30); Carbon Dioxide* 26 mmol/L (20-32); Cholesterol* 111 mg/dL (90-199); Creatinine* 0.8 mg/dL (0.5-1.5); Est. Creatinine Clearance* 64.84; Estimated Glomerular Filt Rate 91 ml/min; Glucose* 224 mg/dL (60-115); Triglycerides* 188 mg/dL (40-149)
[2024-07-17 09:30] LABS: Calcium* 8.7 mg/dL (8.4-10.6); HDL Cholesterol* 23 mg/dL (>=40); LDL Cholesterol Calculated 50 mg/dL (<100); Magnesium* 1.8 mg/dL (1.5-2.6); Phosphorus* 3.7 mg/dL (2.5-4.5)
[2024-07-17] MEDS: ACETAMINOPHEN 650 MG TABLET ER 1300 MG PO (09:38)
[2024-07-17] MEDS: timoloL maleate 0.5 % 1 DROP EYE-BOTH (09:39)
--- NOTE | 2024-07-17 09:47 | PM.GSPN ---
Subjective Subjective Date Seen: 07/17/24 Interval history: Patient did well yesterday and overnight. He is passing gas. He denies nausea vomiting. He denies abdominal pain. He ambulated. NG remained clamped, he did not have any sips of clears. Exam Narrative: Exam Narrative: Abdomen is soft, not distended, minimal discomfort to palpation on the right side, improved from yesterday. No tenderness to palpation anywhere else. Midline laparotomy incision is with no surrounding erythema. Const: Vital Signs, click to edit/add: Vital Signs - 24 hr 07/16/24 10:56 07/16/24 15:00 07/16/24 16:07 Temperature 97.1 F L 96.8 F L Pulse Rate [Pulse Oximeter] 93 90 Respiratory Rate 18 18 18 Blood Pressure [Ri ght Arm] 146/98 H 157/110 H Pulse Oximetry 96 96 96 Oxygen Delivery Me thod Room Air Room Air Room Air 07/16/24 20:55 07/16/24 22:45 07/16/24 22:45 Temperature 96.9 F L Pulse Rate [Pulse Oximeter] 92 91 Respiratory Rate 20 20 20 Blood Pressure [Ri ght Arm] 140/85 H Pulse Oximetry 99 98 Oxygen Delivery Me thod Room Air Room Air 07/16/24 22:45 07/17/24 04:45 07/17/24 08:38 Temperature 98.8 F 97.5 F L Pulse Rate [Pulse Oximeter] 91 98 Respiratory Rate 20 16 Blood Pressure [Ri ght Arm] 158/90 H 158/94 H Pulse Oximetry 98 98 97 Oxygen Delivery Me thod Room Air Room Air Room Air 07/17/24 08:38 Temperature 97.6 F Pulse Rate [Pulse Oximeter] 92 Respiratory Rate 18 Blood Pressure [Ri ght Arm] 167/102 H Pulse Oximetry 97 Oxygen Delivery Me thod Room Air Progress Note:A&P Assessment and plan (1) S/P exploratory laparotomy: Status: Acute Assessment and Plan: 79-year-old male s/p exploratory laparotomy POD 6. Patient is improving. Will DC NG tube today and advance him to clears. I discussed with the patient that he should advance his diet slowly. Patient will work with therapies on safe ambulation.
[2024-07-17] MEDS: AA 5 %/CALCIUM/LYTES/DEXT 20 % 2,000 ML 95 ML IV (10:33)
[2024-07-17 10:41] VITALS: BP 184/126; PULSE 95; RESP 18; TEMP 36.1; O2SAT 99
[2024-07-17] MEDS: ONDANSETRON 2 MG/ML inj 4 MG IVP (10:52)
[2024-07-17] MEDS: LABETALOL HCL 5 MG/ML inj 10 MG IVP (10:52)
[2024-07-17] MEDS: AA 5 %/CALCIUM/LYTES/DEXT 20 % 2,000 ML 45 ML IV (14:00)
[2024-07-17 14:38] VITALS: BP 131/78; PULSE 90; RESP 18; TEMP 36.3; O2SAT 99
--- NOTE | 2024-07-17 15:27 | P.IMPN_ITS ---
Progress Note: A&P Assessment and plan (1) S/P exploratory laparotomy: Problem details: - Lysis of adhesions on 07/11/2024 - postop ileus slowly resolving - NG out 07/17 - advancing diet - restarting home meds Status: Acute (2) Hypertension: Problem details: - restarting home meds. - given his poor IV access on 07/14/2024, will order a PICC line for TPN as well as IV medication administration Status: Chronic (3) Diabetes mellitus: Problem details: restarted home meds; continue bedside glucose monitoring; continue SSI Status: Acute Subjective Date Seen: 07/17/24 Interval history: Daily Progress Note - Hospital Medicine Day #: 10 Post Op Day #: 6 CC: SBO, lysis of adhesions 24 HOUR UPDATE: NG out. advancing diet. ambulating in the alls. Notable Labs, Micro, Rads, Interventions: CBC stable. Normal electrolytes. Renal function is normal. Objective: Vitals: see above Lungs: Clear. Cardiac: S1S2. Abdomen: soft. Disposition/Potential discharge - Home with and adult child. Today I spent 50minutes seeing the patient, reviewing Expanse and EPIC notes/diagnostics, discussing the care plan with our care time that includes social work, PT/OT, pharmacy, RT, mcc and documenting my impressions and plan in the medical record. Exam Const: Vital Signs, click to edit/add: Vital Signs - 24 hr 07/16/24 16:07 07/16/24 20:55 07/16/24 22:45 Temperature 96.8 F L 96.9 F L Pulse Rate [Pulse Oximeter] 90 92 91 Respiratory Rate 18 20 20 Blood Pressure [Ri ght Arm] 157/110 H 140/85 H Pulse Oximetry 96 99 Oxygen Delivery Me thod Room Air Room Air 07/16/24 22:45 07/16/24 22:45 07/17/24 04:45 Temperature 98.8 F 97.5 F L Pulse Rate [Pulse Oximeter] 91 98 Respiratory Rate 20 20 16 Blood Pressure [Ri ght Arm] 158/90 H 158/94 H Pulse Oximetry 98 98 98 Oxygen Delivery Me thod Room Air Room Air Room Air 07/17/24 08:38 07/17/24 08:38 07/17/24 10:41 Temperature 97.6 F 97.0 F L Pulse Rate [Pulse Oximeter] 92 95 Respiratory Rate 18 18 [facility] 167/102 H 184/126 H Pulse Oximetry 97 97 99 Oxygen Delivery Me thod Room Air Room Air Room Air 07/17/24 14:38 Temperature 97.3 F L Pulse Rate [Pulse Oximeter] 90 Respiratory Rate 18 Blood Pressure [[facility] Arm] 131/78 Pulse Oximetry 99 Oxygen Delivery Me thod Room Air Labs Labs: Laboratory Results - last 24 hr 07/17/24 07/17/24 08:30 08:45 WBC 9.47 RBC 4.18 L Hgb 11.8 L Hct 36.9 L MCV 88 MCH 28 MCHC 32 Plt Count 227 Sodium 137 Potassium 4.2 Chloride 104 Carbon Dioxide 26 Anion Gap 7 BUN 20 Creatinine 0.8 Estimated Creat Clear 64.84 Estimated GFR 91 Glucose 224 H Calcium 8.7 Phosphorus 3.7 Magnesium 1.8 Albumin 2.8 L Triglycerides 188 H Cholesterol 111 LDL Cholesterol, Calc 50 HDL Cholesterol 23 L Lab Acknowledgement Test Added
[2024-07-17 16:00] VITALS: O2SAT 99
[2024-07-17] MEDS: PANTOPRAZOLE SODIUM 40 MG INJ IVP (16:32)
[2024-07-17] MEDS: METFORMIN ER 500 MG 1000 MG PO (18:14)
--- NOTE | 2024-07-17 18:42 | PC.NURSE ---
End of Shift: The patient is alert and orientated. VS noted to be hypertensive this AM/ early afternoon. PRN dose of labetalol was given 1x. The patient also was noted to report nausea this morning 1 dose of zofran was given with adequate results. The patient reports passing gas. NO BM. Per MD NG was removed, tip intact. No reports of pain this shift. Bowel sounds remain hypoactive, distention is noted as well as tenderness to the abdomen. Midline incision steri strips were changed this shift, small amount of bleeding noted. Tolerating clear liquids. SBA w/ GB and RW. Patient to ambulate tonight 1 more time. Call light within reach. Mel RAMOS BSN
[2024-07-17 20:35] VITALS: BP 144/76; PULSE 84; RESP 16; TEMP 36.4; O2SAT 100
[2024-07-17] MEDS: LATANOPROST 0.005% OPHTH 1 DROP EYE-BOTH (20:43)
[2024-07-17] MEDS: ENOXAPARIN 40 MG/0.4 ML INJ SUBCUT (20:44)
[2024-07-18] VITALS (9 sets, daily range): BP systolic 135–191; BP diastolic 83–111; PULSE 76–94; RESP 16–20; TEMP 36.1–36.4; O2SAT 96–98
[2024-07-18] MEDS: ACETAMINOPHEN 650 MG TABLET ER 1300 MG PO ×2 (01:32→09:52)
[2024-07-18 06:34] LABS: Hematocrit 36.3 % (37.0-53.0); Hemoglobin* 11.6 gm/dL (13.5-17.5); Mean Corpuscular HGB Conc 32 gm/dL (32-36); Mean Corpuscular Hemoglobin 28 pg (26-34); Mean Corpuscular Volume 88 fL (80-100); Platelet Count* 226 K/uL (140-440); Red Blood Count 4.12 m/uL (4.30-5.90); White Blood Count* 9.26 K/uL (4.50-11.00)
[2024-07-18 06:42] LABS: Slide Review Reflex Yes
[2024-07-18 06:54] LABS: Chloride* 107 mmol/L (96-114); Potassium* 3.8 mmol/L (3.6-5.1); Sodium* 138 mmol/L (135-149)
[2024-07-18 06:56] LABS: Cholesterol* 123 mg/dL (90-199)
[2024-07-18 06:57] LABS: Anion Gap 6 mEq/L (7-15); Blood Urea Nitrogen* 16 mg/dL (7-30); Carbon Dioxide* 25 mmol/L (20-32); Creatinine* 0.9 mg/dL (0.5-1.5); Est. Creatinine Clearance* 64.84; Estimated Glomerular Filt Rate 87 ml/min; Glucose* 149 mg/dL (60-115); Phosphorus* 3.5 mg/dL (2.5-4.5); Triglycerides* 226 mg/dL (40-149)
[2024-07-18 06:58] LABS: Calcium* 8.5 mg/dL (8.4-10.6); HDL Cholesterol* 21 mg/dL (>=40); LDL Cholesterol Calculated 57 mg/dL (<100)
--- NOTE | 2024-07-18 07:41 | PC.NURSE ---
END OF SHIFT NOTE: PT PLEASANT AND COOPERATIVE. A&Ox3. DENIES CP, SOB, N/V. AMBULATES WITH SBA/WALKER. VSS ON RA; AFEBRILE. BP'S HTN DECREASED TO APPROPRIATE LEVEL ON OWN. BS HYPOACTIVE. PASSING GAS AND BELCHING. NO BM THIS SHIFT. TOLERATING CLEAR LIQUID DIET. CALL LIGHT WITHIN PT?S REACH
[2024-07-18 08:13] LABS: Slide Review Acceptable Review (Acceptable)
[2024-07-18] MEDS: METOPROLOL SUCCINATE (XL) 50 MG TAB PO (09:00)
[2024-07-18] MEDS: AMLODIPINE 10 MG TABLET PO (09:00)
[2024-07-18] MEDS: METFORMIN ER 500 MG 1000 MG PO (09:00)
[2024-07-18] MEDS: FINASTERIDE 5 MG TABLET PO (09:00)
[2024-07-18] MEDS: GLIMEPIRIDE 1 MG TABLET 2 MG PO (09:00)
[2024-07-18] MEDS: ATORVASTATIN 10 MG TABLET PO (09:00)
[2024-07-18] MEDS: lisinopriL 20 MG TABLET 10 MG PO (09:00)
[2024-07-18] MEDS: timoloL maleate 0.5 % 1 DROP EYE-BOTH (09:01)
[2024-07-18] MEDS: SODIUM CHLORIDE 0.9 % (FLUSH) 10 ML SYRINGE 5 ML IVF ×2 (09:01→22:33)
--- NOTE | 2024-07-18 09:16 | PM.GSPN ---
Subjective Subjective Date Seen: 07/18/24 Interval history: Juan Manuel is feeling okay today. Has had minimal pain. He states he is passing gas more regularly. He has been voiding but he states a normal amount for him. He has been up walking around. He has been on full liquids and has had mild nausea but no vomiting. He states he has been belching somewhat. He feels more rumbling in his abdomen Exam Narrative: Exam Narrative: General: No acute distress CV: Regular rate Abdomen: Protuberant. Minimally tender. Ecchymosis surrounding incision. Bowel sounds present. Extremities: Bilateral upper extremities are edematous 3+ on left and 2+ on right. Pedal edema noted bilaterally Const: Vital Signs, click to edit/add: Vital Signs - 24 hr 07/17/24 10:41 07/17/24 14:38 07/17/24 16:00 Temperature 97.0 F L 97.3 F L Pulse Rate [Pulse Oximeter] 95 90 Respiratory Rate 18 18 Blood Pressure [Ri ght Arm] 184/126 H 131/78 Pulse Oximetry 99 99 99 Oxygen Delivery Nm thod Room Air Room Air Room Air 07/17/24 20:35 07/18/24 00:30 07/18/24 00:30 Temperature 97.6 F Pulse Rate [Pulse Oximeter] 84 94 Respiratory Rate 16 18 18 Blood Pressure [Ri ght Arm] 144/76 H Pulse Oximetry 100 [facility] 07/18/24 00:30 07/18/24 01:30 07/18/24 04:45 Temperature 97.2 F L 97.6 F Pulse Rate [Pulse Oximeter] 94 91 Respiratory Rate 18 20 Blood Pressure [Ri ght Arm] 153/111 H 173/89 H 149/85 H Pulse Oximetry 97 98 [facility] 07/18/24 08:56 07/18/24 08:56 Temperature 96.9 F L Pulse Rate [Pulse Oximeter] 92 Respiratory Rate 18 18 Blood Pressure [Ri ght Arm] 191/98 H Pulse Oximetry 98 98 [facility] Labs/Imaging Labs Labs: White blood cell count today is within normal limits. Electrolytes within normal limits. Progress Note:A&P Assessment and plan (1) Bowel obstruction: Status: Acute (2) S/P exploratory laparotomy: Status: Acute (3) Diabetes mellitus: Status: Acute (4) Moderate protein-calorie malnutrition: Status: Acute (5) Physical deconditioning: Status: Acute (6) Physical debility: Status: Acute (7) Poor intravenous access: Status: Acute (8) Edema: Status: Acute Plan Juan Manuel is a 71-year-old male who is postop day 7 from exploratory laparotomy and lysis of adhesions. We are still awaiting for full return of bowel function. He tolerated a trial of NG clamping for 2 days over the weekend. He is passing gas but no bowel movement. I am still concerned that he will be slow to resolve and therefore I encouraged him to take in liquids cautiously. -discussed continuing TPN at least 1 more day with the hospitalist. -peripheral edema noted. A left arm slightly more than the right. The patient states that this is been present during the entire hospitalization. Consider upper extremity ultrasound. -could consider diuresis, however since the patient is unable to be catheterized secondary to likely BPH, will hold off for now in case patient's urinary retention were to worsen -continue Lovenox for DVT prophylaxis. -continue IS and ambulation.
--- NOTE | 2024-07-18 11:42 | REH.OT ---
OT: Patient declining OOB activity this am due to c/o nausea this am. Noting increased edema LUE and PICC line is in LUE, charge nurse informed. Pt re-educated in edema management strategies for UE edema.
--- NOTE | 2024-07-18 11:47 | CRLHL7_ITS ---
For Patients: As a result of the Century Cures Act, medical imaging exams and procedure reports are released immediately into your electronic medical record. You may view this report before your referring provider. If you have questions, please contact your health care provider. INDICATION: Edema, PICC line in place COMPARISON: None. TECHNIQUE: Russell-scale, color, and duplex Doppler imaging of the left upper extremity veins. Compression and augmentation attempted where anatomically and clinically feasible. FINDINGS: Laterality: Left Examined veins: Internal jugular, innominate, subclavian, axillary, brachial, ulnar, radial Basilic, cephalic There is acute occlusive and near occlusive thrombus throughout the left basilic vein, the axillary vein, and the left subclavian vein. Otherwise, the examined veins are patent with normal grayscale appearance and normal compressibility where anatomically feasible. Normal color Doppler flow. Normal venous waveforms on duplex Doppler ultrasound with normal augmentation. IMPRESSION: Catheter associated acute occlusive superficial and deep vein thrombus in the left basilic, axillary, and subclavian veins. The left innominate/brachiocephalic vein is patent without findings of central extension. Dictated by Jie Magaña MD @ 07/18/2024 1:06:06 PM (Electronically Signed)
[2024-07-18] MEDS: INSULIN ASPART 100 UNIT/ML SUBCUT ×2 (11:58→19:02)
[2024-07-18] MEDS: PROCHLORPERAZINE 5 MG/ML VIAL 10 MG IV (11:59)
--- NOTE | 2024-07-18 12:01 | PM.IMPN1 ---
Progress Note: A&P Assessment and plan (1) Bowel obstruction: Problem details: -appreciate gen surg following; discussing case daily. -keep him on ice chips and fluids while acutely nauseated today -multiple adhesions were lysed during surgery on the . -NG d/c on 07/17/24 Status: Acute (2) Peripheral edema: Problem details: LUE >> RUE. will r/o VTE with bedside u/s PICC line is flushing fine; no evidence of cellulitis or leaking. if DVT neg (has been on lovenox 40mg daily) will add compression wrap. Status: Acute (3) S/P exploratory laparotomy: Problem details: - Lysis of adhesions on 07/11/2024 - postop ileus slowly resolving - NG out 07/17 - advancing diet - restarting home meds Status: Acute (4) Diabetes mellitus: Problem details: restarted home meds; continue bedside glucose monitoring; continue SSI Status: Acute (5) Moderate protein-calorie malnutrition: Problem details: - minimal oral intake for the past 2 weeks as of 07/14/2024 - PICC ordered - TPN initiated 07/14/2024 and continue until the time that he is able to demonstrate he is tolerating oral intake Status: Acute (6) Physical deconditioning: Problem details: -working with PT and OT Status: Acute (7) Physical debility: Problem details: -working with PT and OT Status: Acute (8) Poor intravenous access: Problem details: - PICC placed on 07/14/2024 Status: Acute (9) Edema: Status: Deleted Subjective Date Seen: 07/18/24 Interval history: Daily Progress Note - Hospital Medicine Day #: 11 Post Op Day #: 7 CC: SBO, lysis of adhesions 24 HOUR UPDATE: NG out 07/17. feeling more nauseated this am; some spitting up. passing gas. left arm is swollen; unilateral. PICC line flushes well. Notable Labs, Micro, Rads, Interventions: CBC stable. Normal electrolytes. Renal function is normal. Objective: looks tired Vitals: see above Lungs: Clear. Cardiac: S1S2. Abdomen: soft. extremities: left definitely tense and edematous; much different than the right. b/l lower ext have 1+ and are not tense. Disposition/Potential discharge - Home with and adult child. Today I spent 50minutes seeing the patient, reviewing Expanse and EPIC notes/diagnostics, discussing the care plan with our care time that includes social work, PT/OT, pharmacy, RT, fdc and documenting my impressions and plan in the medical record. Exam Const: Vital Signs, click to edit/add: Vital Signs - 24 hr 07/17/24 14:38 07/17/24 16:00 07/17/24 20:35 Temperature 97.3 F L 97.6 F Pulse Rate [Pulse Oximeter] 90 84 Respiratory Rate 18 16 Blood Pressure [Ri ght Arm] 131/78 144/76 H Pulse Oximetry 99 99 100 Oxygen Delivery Me thod Room Air Room Air Room Air 07/18/24 00:30 07/18/24 00:30 07/18/24 00:30 Temperature 97.2 F L Pulse Rate [Pulse Oximeter] 94 94 Respiratory Rate 18 18 18 Blood Pressure [Ri ght Arm] 153/111 H Pulse Oximetry 97 97 Oxygen Delivery [place] thod Room Air Room Air 07/18/24 01:30 07/18/24 04:45 07/18/24 08:56 Temperature 97.6 F Pulse Rate [Pulse Oximeter] 91 Respiratory Rate 20 18 Blood Pressure [Ri ght Arm] 173/89 H 149/85 H Pulse Oximetry 98 98 Oxygen Delivery Me thod Room Air Room Air 07/18/24 08:56 Temperature 96.9 F L Pulse Rate [Pulse Oximeter] 92 Respiratory Rate 18 Blood Pressure [Ri ght Arm] 191/98 H Pulse Oximetry 98 Oxygen Delivery Me thod Room Air Labs Labs: Laboratory Results - last 24 hr 07/18/24 06:12 WBC 9.26 RBC 4.12 L Hgb 11.6 L Hct 36.3 L MCV 88 MCH 28 MCHC 32 Plt Count 226 Diff Slide Review Acceptable Review Sodium 138 Potassium 3.8 Chloride 107 Carbon Dioxide 25 Anion Gap 6 L BUN 16 Creatinine 0.9 Estimated Creat Clear 64.84 Estimated GFR 87 Glucose 149 H Calcium 8.5 Phosphorus 3.5 Albumin 3.0 L Triglycerides 226 H Cholesterol 123 LDL Cholesterol, Calc 57 HDL Cholesterol 21 L
[2024-07-18] MEDS: AA 5 %/CALCIUM/LYTES/DEXT 20 % 2,000 ML 45 ML IV (12:05)
[2024-07-18] MEDS: ENOXAPARIN 120 MG/0.8 ML INJ SUBCUT (13:12)
[2024-07-18] MEDS: METOPROLOL TARTRATE 1 MG/ML inj 5 MG IVP ×2 (13:12→19:04)
[2024-07-18] MEDS: PANTOPRAZOLE SODIUM 40 MG INJ IVP (14:51)
[2024-07-18] MEDS: ACETAMINOPHEN INJ 1,000 MG/100 ML VIAL 400 MG IVPB (14:59)
--- NOTE | 2024-07-18 15:09 | PC.NURSE ---
Pt. ambulating in hallway with walker and SBA. Taking small sips of water po this AM; experienced nausea and small emesis; Compazine administered and nausea/vomiting resolved. Bowel sounds hypoactive. Passing flatus. Moderate BM. Pt's diet back to NPO and TPN rate increased to 95ml/hr per MD order.
[2024-07-18] MEDS: ENALAPRILAT 1.25 MG/ML IVP ×2 (16:06→22:22)
[2024-07-18] MEDS: ONDANSETRON 2 MG/ML inj 4 MG IVP (22:22)
[2024-07-18] MEDS: LATANOPROST 0.005% OPHTH 1 DROP EYE-BOTH (22:33)
[2024-07-19] VITALS (10 sets, daily range): BP systolic 124–160; BP diastolic 72–86; PULSE 70–98; RESP 16–20; TEMP 36.1–36.7; O2SAT 96–99
[2024-07-19] MEDS: METOPROLOL TARTRATE 1 MG/ML inj 5 MG IVP ×4 (00:28→18:54)
[2024-07-19] MEDS: ENOXAPARIN 120 MG/0.8 ML INJ SUBCUT ×2 (00:33→13:24)
[2024-07-19] MEDS: INSULIN ASPART 100 UNIT/ML SUBCUT ×2 (00:42→18:47)
[2024-07-19] MEDS: ENALAPRILAT 1.25 MG/ML IVP ×3 (04:14→17:05)
[2024-07-19] MEDS: HYDROmorphone 0.5 mg/0.5 ml inj IVP (06:06)
[2024-07-19 06:31] LABS: Hemoglobin* 11.6 gm/dL (13.5-17.5); Mean Corpuscular HGB Conc 32 gm/dL (32-36); Mean Corpuscular Hemoglobin 28 pg (26-34); Mean Corpuscular Volume 88 fL (80-100); Platelet Count* 248 K/uL (140-440); Red Blood Count 4.08 m/uL (4.30-5.90); White Blood Count* 11.52 K/uL (4.50-11.00)
--- NOTE | 2024-07-19 06:33 | PC.NURSE ---
End of shift note [id number]. Pt alert & oriented x 4 and able to make needs known. PICC in place to LUE and patent with dressing noted to be C/D/I. TPN and fluids running per current orders in place. Pt noted to be continent of bowel and bladder and had two loose stools this shift. [employer]obile [employer] applied new Mepilex dressing to abrasion located to L inner buttock after cleansing and patting dry. SCDs worn to BLEs. Pt transferring/ambulating with SBA using FWW and gait belt. One c/o 4/10 abdominal pain noted this morning with PRN Dilaudid administered, rest encouraged and repositioning performed. Pt ambulated in hallway this morning with SBA using FWW and gait belt. Pt continues to have HTN managed with scheduled medications. He has been afebrile throughout the shift and remains on RA. Surgical incision to abdomen remains LAVINIA with steri strips in place and no warmth, edema, redness or drainage observed upon inspection. Pillows utilized to elevate bilateral upper extremities. Pt tolerating ice chips per order in place with no c/o nausea or vomiting noted. Blood glucose of 176 and 148 this shift.
[2024-07-19 06:41] LABS: Slide Review Reflex No
[2024-07-19 06:46] LABS: Chloride* 106 mmol/L (96-114); Potassium* 3.8 mmol/L (3.6-5.1); Sodium* 137 mmol/L (135-149)
[2024-07-19 06:48] LABS: Creatinine* 0.8 mg/dL (0.5-1.5); Est. Creatinine Clearance* 64.84; Estimated Glomerular Filt Rate 91 ml/min
[2024-07-19 06:49] LABS: Anion Gap 3 mEq/L (7-15); Blood Urea Nitrogen* 17 mg/dL (7-30); Carbon Dioxide* 28 mmol/L (20-32); Glucose* 145 mg/dL (60-115); Phosphorus* 3.1 mg/dL (2.5-4.5)
[2024-07-19 06:50] LABS: Calcium* 8.9 mg/dL (8.4-10.6)
--- NOTE | 2024-07-19 08:23 | PM.GSPN ---
Subjective Subjective Date Seen: 07/19/24 Interval history: Juan Manuel states that he feels better today. He states that he has had several liquidy bowel movements since yesterday. Pain overall is unchanged, and minimal. It is worse when he is up moving. He states that he has not had significant nausea though he was vomiting up phlegm yesterday, but he states that he feels like he needs to belch but he can not. Yesterday after he started vomiting he was switched back to NPO status. He was also found to have a catheter associated thrombus on the left. He was started on Lovenox. Exam Narrative: Exam Narrative: General: No acute distress CV: Regular rate Abdomen: Softer today. Remains protuberant. Bowel sounds are much more active today. Const: Vital Signs, click to edit/add: Vital Signs - 24 hr 07/18/24 08:56 07/18/24 08:56 07/18/24 11:57 Temperature 96.9 F L 97.0 F L Pulse Rate [Pulse Oximeter] 92 85 Respiratory Rate 18 18 16 Blood Pressure [Ri ght Arm] 191/98 H 166/83 H Pulse Oximetry 98 98 96 Oxygen Delivery [place] thod Room Air Room Air Room Air 07/18/24 15:00 07/18/24 15:00 07/18/24 15:00 Temperature 97.0 F L Pulse Rate [Pulse Oximeter] 85 85 Respiratory Rate 16 16 16 Blood Pressure [Ri ght Arm] 135/83 Pulse Oximetry 96 96 [facility] 07/18/24 19:00 07/18/24 19:10 07/18/24 23:00 Temperature 97.5 F L 97.5 F L Pulse Rate [Pulse Oximeter] 80 76 Respiratory Rate 16 16 Blood Pressure [Ri ght Arm] 173/89 H Pulse Oximetry 98 Oxygen Delivery [place] thod Room Air 07/19/24 00:20 07/19/24 00:26 07/19/24 04:12 Temperature 97.0 F L 97.2 F L Pulse Rate [Pulse Oximeter] 76 70 Respiratory Rate 16 16 16 Blood Pressure [Ri ght Arm] 160/79 H 135/74 Pulse Oximetry 97 97 98 [facility] Room Air Room Air 07/19/24 05:37 Temperature Pulse Rate [Pulse Oximeter] 89 Respiratory Rate Blood Pressure [Ri ght Arm] 149/78 H Pulse Oximetry Oxygen Delivery Me thod Labs/Imaging Labs Labs: WBC up slightly at 11 from 9 Imaging Imaging: U/S upper extremity IMPRESSION: Catheter associated acute occlusive superficial and deep vein thrombus in the left basilic, axillary, and subclavian veins. The left innominate/brachiocephalic vein is patent without findings of central extension. Dictated by Jie Magaña MD @ 07/18/2024 1:06:06 PM Progress Note:A&P Assessment and plan (1) Peripheral edema: Status: Acute (2) S/P exploratory laparotomy: Status: Acute (3) Diabetes mellitus: Status: Acute (4) Moderate protein-calorie malnutrition: Status: Acute (5) Physical deconditioning: Status: Acute (6) Poor intravenous access: Status: Acute (7) Ileus: Status: Acute Plan The patient is a 79-year-old male who is postop day 8 status post ex lap and lysis of adhesions for presumed small-bowel obstruction. He has had return of bowel function today after prolonged ileus. However he continues to have some fullness with p.o. intake. I would recommend that he continue on ice chips this morning. If he begins to feel better and has more gas throughout the day and less fullness/belching he could advance to clear liquids. I would recommend continuing TPN today. He also has a catheter associated thrombus in his left subclavian vein. -since he is not tolerating a diet yet, I favor leaving the PICC line in place treating with Lovenox. As soon as we are able to advance his diet and he has reliable return of bowel function will DC the PICC line and switch to oral anticoagulation. Continue incentive spirometry and ambulation
[2024-07-19] MEDS: timoloL maleate 0.5 % 1 DROP EYE-BOTH (08:59)
[2024-07-19] MEDS: ACETAMINOPHEN INJ 1,000 MG/100 ML VIAL 400 MG IVPB ×3 (09:02→18:48)
--- NOTE | 2024-07-19 10:38 | PM.IMPN1 ---
Progress Note: A&P Assessment and plan (1) Bowel obstruction: Problem details: -appreciate gen surg following; discussing case daily. -sips and chips with very conservative advancement of diet -multiple adhesions were lysed during surgery on 07/11 -NG d/c on 07/17/24 -on TPN per PICC line Status: Acute (2) S/P exploratory laparotomy: Problem details: - Lysis of adhesions on 07/11/2024 - postop ileus slowly resolving - NG out 07/17 - advancing diet slowly - Continuing TPN at 95cc/hr - consider reducing to 50cc/hr when full liquid diet is tolerated and d/c Status: Acute (3) Acute deep vein thrombosis (DVT) of left upper extremity after procedure: Problem details: -from PICC line insertion/trauma -lovenox 1mg/kg BID -ok to leave PICC in place per gen surgery Status: Acute (4) Ileus: Problem details: -post-op; slow improvement Status: Acute (5) Diabetes mellitus: Problem details: continue bedside glucose monitoring; continue SSI Status: Acute (6) Moderate protein-calorie malnutrition: Problem details: - minimal oral intake for the past 2 weeks as of 07/14/2024 - PICC ordered - TPN initiated 07/14/2024 and continue until the time that he is able to demonstrate he is tolerating oral intake Status: Acute (7) Physical deconditioning: Problem details: -working with PT and OT Status: Acute (8) Poor intravenous access: Problem details: - PICC placed on 07/14/2024 Status: Acute Subjective Date Seen: 07/19/24 Interval history: Daily Progress Note - Hospital Medicine Day #: 12 Post Op Day #: 8 CC: SBO, lysis of adhesions 24 HOUR UPDATE: NG out 07/17. feeling better this am; has beening have BM's overnight. no vomiting, nausea. Dx with acute DVT in the upper left arm 07/18 - lovenox 1mg/kg BID started. decision to keep PICC in place made. Notable Labs, Micro, Rads, Interventions: CBC stable. mild bump in the WBC; would fit with slight set back yesterday Normal electrolytes. Renal function is normal. Objective: smiling and making jokes this morning; more pep. Vitals: see above Lungs: Clear. Cardiac: S1S2. Abdomen: soft. extremities: left definitely tense and edematous; much different than the right. b/l lower ext have 1+ and are not tense. Disposition/Potential discharge - Home with and adult child. Today I spent 50minutes seeing the patient, reviewing Expanse and EPIC notes/diagnostics, discussing the care plan with our care time that includes social work, PT/OT, pharmacy, RT, nursing home and documenting my impressions and plan in the medical record. Exam Const: Vital Signs, click to edit/add: Vital Signs - 24 hr 07/18/24 11:57 07/18/24 15:00 07/18/24 15:00 Temperature 97.0 F L Pulse Rate [Pulse Oximeter] 85 85 Respiratory Rate 16 16 16 Blood Pressure [Ri ght Arm] 166/83 H Pulse Oximetry 96 96 Oxygen Delivery Me thod Room Air Room Air 07/18/24 15:00 07/18/24 19:00 07/18/24 19:10 Temperature 97.0 F L 97.5 F L 97.5 F L Pulse Rate [Pulse Oximeter] 85 80 Respiratory Rate 16 16 Blood Pressure [Ri ght Arm] 135/83 173/89 H Pulse Oximetry 96 98 Oxygen Delivery Me thod Room Air Room Air 07/18/24 23:00 07/19/24 00:20 07/19/24 00:26 Temperature 97.0 F L Pulse Rate [Pulse Oximeter] 76 76 Respiratory Rate 16 16 16 Blood Pressure [Ri ght Arm] 160/79 H Pulse Oximetry 97 97 Oxygen Delivery Me thod Room Air Room Air 07/19/24 04:12 07/19/24 05:37 07/19/24 09:55 Temperature 97.2 F L Pulse Rate [Pulse Oximeter] 70 89 Respiratory Rate 16 20 Blood Pressure [Ri ght Arm] 135/74 149/78 H Pulse Oximetry 98 96 Oxygen Delivery Me thod Room Air Room Air 07/19/24 09:58 Temperature 97.2 F L Pulse Rate [Pulse Oximeter] 86 Respiratory Rate 20 Blood Pressure [Ri ght Arm] 157/85 H Pulse Oximetry 96 Oxygen Delivery Me thod Room Air Labs Labs: Laboratory Results - last 24 hr 07/19/24 05:46 WBC 11.52 H RBC 4.08 L Hgb 11.6 L Hct 36.0 L MCV 88 MCH 28 MCHC 32 Plt Count 248 Sodium 137 Potassium 3.8 Chloride 106 Carbon Dioxide 28 Anion Gap 3 L BUN 17 Creatinine 0.8 Estimated Creat Clear 64.84 Estimated GFR 91 Glucose 145 H Calcium 8.9 Phosphorus 3.1 Albumin 3.0 L
[2024-07-19] MEDS: SODIUM CHLORIDE 0.9 % (FLUSH) 10 ML SYRINGE 5 ML IVF ×2 (11:14→17:11)
[2024-07-19] MEDS: AA 5 %/CALCIUM/LYTES/DEXT 20 % 2,000 ML 95 ML IV (14:37)
[2024-07-19] MEDS: PANTOPRAZOLE SODIUM 40 MG INJ IVP (14:59)
--- NOTE | 2024-07-19 15:37 | PC.NURSE ---
End of shift [id number] - Pt alert, oriented, cooperative. Noted to walk in halls with staff assistance. Pt up with standby assistance, continent of bowel and bladder during shift. Tolerating NPO/ice chips diet order per MD. Reported mild pain when ambulating, offered pain medication per MAR, pt refused. Family at bedside during shift, pt observed to sleep intermittently. Appears to be resting in bed with call light within reach at end of shift.
[2024-07-19] MEDS: LATANOPROST 0.005% OPHTH 1 DROP EYE-BOTH (22:39)
[2024-07-20] VITALS (14 sets, daily range): BP systolic 133–199; BP diastolic 77–108; PULSE 66–92; RESP 16–22; TEMP 36.6–36.9; O2SAT 96–97; BMI 37.1
[2024-07-20] MEDS: METOPROLOL TARTRATE 1 MG/ML inj 5 MG IVP ×4 (00:47→18:20)
[2024-07-20] MEDS: ENOXAPARIN 120 MG/0.8 ML INJ SUBCUT ×2 (00:47→12:33)
[2024-07-20] MEDS: ACETAMINOPHEN INJ 1,000 MG/100 ML VIAL 400 MG IVPB ×3 (00:48→15:38)
[2024-07-20] MEDS: ENALAPRILAT 1.25 MG/ML IVP ×4 (04:23→22:45)
[2024-07-20] MEDS: ONDANSETRON 2 MG/ML inj 4 MG IVP ×2 (04:24→08:07)
[2024-07-20] MEDS: INSULIN ASPART 100 UNIT/ML SUBCUT ×3 (06:19→18:22)
[2024-07-20 06:57] LABS: Hematocrit 34.6 % (37.0-53.0); Hemoglobin* 11.1 gm/dL (13.5-17.5); Mean Corpuscular HGB Conc 32 gm/dL (32-36); Mean Corpuscular Hemoglobin 29 pg (26-34); Mean Corpuscular Volume 89 fL (80-100); Platelet Count* 235 K/uL (140-440); Red Blood Count 3.88 m/uL (4.30-5.90); White Blood Count* 8.12 K/uL (4.50-11.00)
--- NOTE | 2024-07-20 07:01 | PC.NURSE ---
End of shift [id number]: A&O pleasant and cooperative. VSS. Declines CPAP overnight. Reporting pain 1-2/10 in abdomen. Denies need for PRN pain medication. BS active in all quadrants and pt reports passing gas. Overnight pt reported waking up with nausea. PRN zofran given w/ stated relief. Upon initial assessment, singer songwriter entered pt?s room and noticed TPN was not running. Line flushed and TPN started at ordered rate. The duration of which the TPN was not running is unknown. Blood sugar was 79 at that time. Recheck was 105. Provider aware. Up w/ SBA tyesha and GB. Using call light appropriately. ?
[2024-07-20 07:07] LABS: Slide Review Reflex No
[2024-07-20 07:19] LABS: Chloride* 105 mmol/L (96-114)
[2024-07-20 07:20] LABS: Albumin* 2.9 g/dL (3.3-5.0); Potassium* 3.7 mmol/L (3.6-5.1); Sodium* 137 mmol/L (135-149)
[2024-07-20 07:23] LABS: Alanine Aminotransferase* 55 U/L (4-50); Alkaline Phosphatase* 85 U/L (40-150); Anion Gap 6 mEq/L (7-15); Aspartate Amino Transferase* 40 U/L (12-35); Bilirubin Total* 0.6 mg/dL (0.1-1.5); Blood Urea Nitrogen* 15 mg/dL (7-30); Carbon Dioxide* 26 mmol/L (20-32); Creatinine* 0.9 mg/dL (0.5-1.5); Est. Creatinine Clearance* 64.84; Estimated Glomerular Filt Rate 87 ml/min; Total Protein* 5.7 g/dL (6.0-8.3)
[2024-07-20 07:24] LABS: Calcium* 8.6 mg/dL (8.4-10.6); Glucose* 179 mg/dL (60-115)
[2024-07-20] MEDS: SODIUM CHLORIDE 0.9 % (FLUSH) 10 ML SYRINGE 5 ML IVF ×2 (08:09→20:16)
[2024-07-20] MEDS: MAG HYDROX/ALUMINUM HYD/SIMETH 30 ML ORAL.SUSP 15 ML PO (08:38)
--- NOTE | 2024-07-20 09:12 | PM.GSPN ---
Subjective Subjective Date Seen: 07/20/24 Exam Narrative: Exam Narrative: General: NAD CV: regular rate Abdomen: Const: Vital Signs, click to edit/add: Vital Signs - 24 hr 07/19/24 09:55 07/19/24 09:58 07/19/24 12:00 Temperature 97.2 F L 97.2 F L Pulse Rate [Pulse Oximeter] 86 90 Respiratory Rate 20 20 20 Blood Pressure [Ri ght Arm] 157/85 H 131/78 Pulse Oximetry 96 96 96 Oxygen Delivery Me thod Room Air Room Air Room Air Oxygen Flow Rate 07/19/24 15:00 07/19/24 15:00 07/19/24 15:00 Temperature 98 F Pulse Rate [Pulse Oximeter] 79 89 Respiratory Rate 18 18 18 Blood Pressure [Ri ght Arm] 124/72 Pulse Oximetry 99 97 Oxygen Delivery Me thod Room Air Room Air Oxygen Flow Rate 07/19/24 18:54 07/19/24 19:44 07/20/24 00:34 Temperature 98.1 F 98.1 F 98.4 F Pulse Rate [Pulse Oximeter] 98 86 Respiratory Rate 18 16 Blood Pressure [Ri ght Arm] 153/86 H 152/86 H Pulse Oximetry 98 96 Oxygen Delivery Me thod Room Air Room Air Oxygen Flow Rate 07/20/24 01:03 07/20/24 04:06 07/20/24 06:14 Temperature 98.3 F Pulse Rate [Pulse Oximeter] 87 86 Respiratory Rate 16 16 Blood Pressure [Ri ght Arm] 153/81 H 153/80 H Pulse Oximetry 96 96 96 Oxygen Delivery Me thod Room Air Room Air Room Air Oxygen Flow Rate 07/20/24 07:54 Temperature 98.3 F Pulse Rate [Pulse Oximeter] 66 Respiratory Rate 16 Blood Pressure [Ri ght Arm] 164/89 H Pulse Oximetry 97 Oxygen Delivery Me thod Room Air Oxygen Flow Rate Labs/Imaging Labs Labs: WBC 8.12 today
[2024-07-20] MEDS: timoloL maleate 0.5 % 1 DROP EYE-BOTH (09:24)
--- NOTE | 2024-07-20 09:31 | PM.IMPN1 ---
Progress Note: A&P Assessment and plan (1) Bowel obstruction: Problem details: -appreciate gen surg following; discussing case daily. -sips and chips with very conservative advancement of diet -multiple adhesions were lysed during surgery on 07/11 -NG d/c on 07/17/24 -on TPN per PICC line Status: Acute (2) S/P exploratory laparotomy: Problem details: - Lysis of adhesions on 07/11/2024 - postop ileus slowly resolving - NG out 07/17 - advancing diet slowly - Continuing TPN at 95cc/hr - consider reducing to 50cc/hr when full liquid diet is tolerated and d/c Status: Acute (3) Acute deep vein thrombosis (DVT) of left upper extremity after procedure: Problem details: -from PICC line insertion/trauma -lovenox 1mg/kg BID -ok to leave PICC in place per gen surgery Status: Acute (4) Ileus: Problem details: -post-op; slow improvement Status: Acute (5) Diabetes mellitus: Problem details: continue bedside glucose monitoring; continue SSI Status: Acute (6) Moderate protein-calorie malnutrition: Problem details: - minimal oral intake for the past 2 weeks as of 07/14/2024 - PICC ordered - TPN initiated 07/14/2024 and continue until the time that he is able to demonstrate he is tolerating oral intake Status: Acute (7) Physical deconditioning: Problem details: -working with PT and OT Status: Acute (8) Poor intravenous access: Problem details: - PICC placed on 07/14/2024 Status: Acute Subjective Date Seen: 07/20/24 Interval history: Daily Progress Note - Hospital Medicine Day #: 13 Post Op Day #: 9 CC: SBO, lysis of adhesions, ileus, acute DVT. 24 HOUR UPDATE: NG out 07/17. feeling better this am; has been have BM's overnight. no vomiting, intermittent nausea. Dx with acute DVT in the upper left arm 07/18 - Lovenox 1mg/kg BID started. decision to keep PICC in place made. Notable Labs, Micro, Rads, Interventions: CBC stable. hgb drifting down, likely dilutional. Normal electrolytes. Renal function is normal. Objective: seems on an emotional roller coaster; feels like he can't make real progress. tried clears last night, went jusk ok Vitals: see above Lungs: Clear. Cardiac: S1S2. Abdomen: soft. extremities: b/l UE edema. left > right. edema wear to the left where known DVT exists. Disposition/Potential discharge - Home with and adult child. Today I spent 50minutes seeing the patient, reviewing Expanse and EPIC notes/diagnostics, discussing the care plan with our care time that includes social work, PT/OT, pharmacy, RT, mcfp and documenting my impressions and plan in the medical record. Exam Const: Vital Signs, click to edit/add: Vital Signs - 24 hr 07/19/24 09:55 07/19/24 09:58 07/19/24 12:00 Temperature 97.2 F L 97.2 F L Pulse Rate [Pulse Oximeter] 86 90 Respiratory Rate 20 20 20 Blood Pressure [Ri ght Arm] 157/85 H 131/78 Pulse Oximetry 96 96 96 Oxygen Delivery Me thod Room Air Room Air Room Air Oxygen Flow Rate 07/19/24 15:00 07/19/24 15:00 07/19/24 15:00 Temperature 98 F Pulse Rate [Pulse Oximeter] 79 89 Respiratory Rate 18 18 18 Blood Pressure [Ri ght Arm] 124/72 Pulse Oximetry 99 97 Oxygen Delivery Me thod Room Air Room Air Oxygen Flow Rate 07/19/24 18:54 07/19/24 19:44 07/20/24 00:34 Temperature 98.1 F 98.1 F 98.4 F Pulse Rate [Pulse Oximeter] 98 86 Respiratory Rate 18 16 Blood Pressure [Ri ght Arm] 153/86 H 152/86 H Pulse Oximetry 98 96 Oxygen Delivery Me thod Room Air Room Air Oxygen Flow Rate 07/20/24 01:03 07/20/24 04:06 07/20/24 06:14 Temperature 98.3 F Pulse Rate [Pulse Oximeter] 87 86 Respiratory Rate 16 16 Blood Pressure [Ri ght Arm] 153/81 H 153/80 H Pulse Oximetry 96 96 96 Oxygen Delivery Me thod Room Air Room Air Room Air Oxygen Flow Rate 10 07/20/24 07:54 Temperature 98.3 F Pulse Rate [Pulse Oximeter] 66 Respiratory Rate 16 Blood Pressure [Ri ght Arm] 164/89 H Pulse Oximetry 97 Oxygen Delivery Me thod Room Air Oxygen Flow Rate Labs Labs: Laboratory Results - last 24 hr 07/20/24 06:08 WBC 8.12 RBC 3.88 L Hgb 11.1 L Hct 34.6 L MCV 89 MCH 29 MCHC 32 Plt Count 235 Sodium 137 Potassium 3.7 Chloride 105 Carbon Dioxide 26 Anion Gap 6 L BUN 15 Creatinine 0.9 Estimated Creat Clear 64.84 Estimated GFR 87 Glucose 179 H Calcium 8.6 Total Bilirubin 0.6 AST 40 H ALT 55 H Alkaline Phosphatase 85 Total Protein 5.7 L Albumin 2.9 L
[2024-07-20 10:05] LABS: INR 1.16 (0.91-1.10); Prothrombin Time 15.6 Seconds
--- NOTE | 2024-07-20 11:58 | P.GSPN_ITS ---
Subjective Subjective Date Seen: 07/20/24 Interval history: Juan Manuel has continued to pass gas and did have a bowel movement this morning. He states though he still has reflux as well as a feeling of fullness; such that he has to burp but is unable to. This has been does hardening for him. He has not vomited. Been tolerating clears other than this sensation. He has been up ambulating. Exam Narrative: Exam Narrative: General: No acute distress CV: Regular rate Abdomen: Remains protuberant but soft and minimally tender. Very active bowel sounds noted throughout. Incision with periwound ecchymosis, however no erythema. Bilateral upper extremity swelling is improving. Const: Vital Signs, click to edit/add: Vital Signs - 24 hr 07/19/24 12:00 07/19/24 15:00 07/19/24 15:00 Temperature 97.2 F L 98 F Pulse Rate [Pulse Oximeter] 90 79 89 Respiratory Rate 20 18 18 Blood Pressure [Ri ght Arm] 131/78 124/72 Pulse Oximetry 96 99 Oxygen Delivery Me thod Room Air Room Air Oxygen Flow Rate 07/19/24 15:00 07/19/24 18:54 07/19/24 19:44 Temperature 98.1 F 98.1 F Pulse Rate [Pulse Oximeter] 98 Respiratory Rate 18 18 Blood Pressure [Ri ght Arm] 153/86 H Pulse Oximetry 97 98 Oxygen Delivery La thod Room Air Room Air Oxygen Flow Rate 07/20/24 00:34 07/20/24 01:03 07/20/24 04:06 Temperature 98.4 F 98.3 F Pulse Rate [Pulse Oximeter] 86 87 Respiratory Rate 16 16 16 Blood Pressure [Ri ght Arm] 152/86 H 153/81 H Pulse Oximetry 96 96 96 Oxygen Delivery Me thod Room Air Room Air Room Air Oxygen Flow Rate 10 07/20/24 06:14 07/20/24 07:54 07/20/24 07:54 Temperature 98.3 F Pulse Rate [Pulse Oximeter] 86 66 66 Respiratory Rate 16 16 Blood Pressure [Ri ght Arm] 153/80 H 164/89 H Pulse Oximetry 96 97 [facility] Room Air Oxygen Flow Rate 07/20/24 07:54 07/20/24 10:18 07/20/24 11:08 Temperature 98 F Pulse Rate [Pulse Oximeter] 88 87 Respiratory Rate 16 18 Blood Pressure [Ri ght Arm] 184/94 H 133/77 Pulse Oximetry 97 97 Oxygen Delivery Me thod Room Air Room Air Oxygen Flow Rate Labs/Imaging Labs Labs: White blood cell count today is normal. Electrolytes within normal limits Progress Note:A&P Assessment and plan (1) Acute deep vein thrombosis (DVT) of left upper extremity after procedure: Status: Acute (2) Ileus: Status: Acute (3) Peripheral edema: Status: Acute (4) S/P exploratory laparotomy: Status: Acute (5) Diabetes mellitus: Status: Acute (6) Esophagitis: Status: Acute (7) Moderate protein-calorie malnutrition: Status: Acute (8) Physical deconditioning: Status: Acute Plan Juan Manuel is a 71-year-old male who is postop day 9 status post exploratory laparotomy and lysis of adhesions for presumed small-bowel obstruction. He has had return of bowel function and overall clinically appears improved except for ongoing feeling of fullness/reflux and nausea. -will continue with liquid diet. We discussed that carbonated beverages will tend to make him feel de la fuente so he should avoid these if possible. He can take p.o. cautiously. He is on a PPI -would continue TPN until he is taking an oral diet more reliably. -continue Lovenox until he is able to take p.o. reliably. He may then be transitioned to oral anticoagulant. Once he is able to take sufficient p.o. will DC the PICC line and TPN. -continue IS and ambulation.
[2024-07-20] MEDS: AA 5 %/CALCIUM/LYTES/DEXT 20 % 2,000 ML 95 ML IV (12:24)
[2024-07-20] MEDS: CALCIUM CARBONATE 500 MG CHEW PO (12:46)
[2024-07-20] MEDS: PANTOPRAZOLE SODIUM 40 MG INJ IVP (14:12)
[2024-07-20] MEDS: FAT EMULSIONS 20 % 250 ML/250 ML BAG 14 ML IV (18:17)
--- NOTE | 2024-07-20 19:52 | PC.NURSE ---
End of Shift: Patient pleasant and cooperative. Patient hypertensive but stable, lungs clear, BS WNL, PICC running TPN at 95 and lipids at 14. Patient rates pain /, only scheduled tylenol given. Patient lacks motivation to consume anything, patient took in very little fluids today but did eat one pudding. Patient urinating well and has had loose BMs, patient ambulating in the hatch. Patient was up to chair once today and sleeping on and off throughout the day. Blood sugars 209 and 204. Midline abdominal incision C/D/I. Left arm swollen with tubi topstitcher zigzag applied.
[2024-07-20] MEDS: ACETAMINOPHEN INJ 1,000 MG/100 ML VIAL 100 MG IVPB (20:15)
[2024-07-20] MEDS: LATANOPROST 0.005% OPHTH 1 DROP EYE-BOTH (20:16)
[2024-07-21] VITALS (8 sets, daily range): BP systolic 153–189; BP diastolic 79–104; PULSE 83–89; RESP 16–20; TEMP 36.6–36.9; O2SAT 96–98
[2024-07-21] MEDS: ENOXAPARIN 120 MG/0.8 ML INJ SUBCUT ×2 (00:08→12:04)
[2024-07-21] MEDS: METOPROLOL TARTRATE 1 MG/ML inj 5 MG IVP ×4 (00:08→18:01)
[2024-07-21] MEDS: INSULIN ASPART 100 UNIT/ML SUBCUT ×4 (00:09→18:00)
[2024-07-21] MEDS: SODIUM CHLORIDE 0.9 % (FLUSH) 10 ML SYRINGE 5 ML IVF ×4 (00:11→23:00)
[2024-07-21] MEDS: ACETAMINOPHEN INJ 1,000 MG/100 ML VIAL 400 MG IVPB ×3 (02:33→20:26)
[2024-07-21] MEDS: ENALAPRILAT 1.25 MG/ML IVP ×4 (04:10→22:57)
--- NOTE | 2024-07-21 07:21 | PC.NURSE ---
: Pleasant and cooperative. Walked halls X 3. Pt ate 1 vanilla ice cream, tolerated well. 2x loose BM?s. Bowels active. Passing gas. Pt burping occasionally. Pt did have about 25-50mL yellow emesis while having BM, pt requested sprite to sip on.?Midline incision HAIRSPRING INSPECTOR, steri strips intact. Left arm wrapped in tubi trailer body assembler and elevated. ?
[2024-07-21 08:17] LABS: Albumin* 3.1 g/dL (3.3-5.0); Chloride* 105 mmol/L (96-114); Sodium* 135 mmol/L (135-149)
[2024-07-21 08:19] LABS: Creatinine* 0.8 mg/dL (0.5-1.5); Est. Creatinine Clearance* 64.84; Estimated Glomerular Filt Rate 91 ml/min
[2024-07-21 08:20] LABS: Alanine Aminotransferase* 62 U/L (4-50); Alkaline Phosphatase* 96 U/L (40-150); Anion Gap 6 mEq/L (7-15); Aspartate Amino Transferase* 42 U/L (12-35); Bilirubin Total* 0.5 mg/dL (0.1-1.5); Blood Urea Nitrogen* 16 mg/dL (7-30); Calcium* 8.6 mg/dL (8.4-10.6); Carbon Dioxide* 24 mmol/L (20-32); Glucose* 250 mg/dL (60-115); Phosphorus* 2.8 mg/dL (2.5-4.5); Total Protein* 5.8 g/dL (6.0-8.3)
[2024-07-21 08:21] LABS: Magnesium* 2.1 mg/dL (1.5-2.6)
--- NOTE | 2024-07-21 08:21 | P.IMPN_ITS ---
Progress Note: A&P Assessment and plan (1) Acute deep vein thrombosis (DVT) of left upper extremity after procedure: Problem details: -from PICC line insertion/trauma -lovenox 1mg/kg BID -ok to leave PICC in place per gen surgery Status: Acute (2) Ileus: Problem details: -post-op; slow improvement Status: Acute (3) S/P exploratory laparotomy: Problem details: - Lysis of adhesions on 07/11/2024 - postop ileus slowly resolving - NG out 07/17 - advancing diet slowly - Continuing TPN at 95cc/hr - consider reducing to 50cc/hr when full liquid diet is tolerated and d/c Status: Acute (4) Moderate protein-calorie malnutrition: Problem details: - minimal oral intake for the past 2 weeks as of 07/14/2024 - PICC ordered - TPN initiated 07/14/2024 and continue until the time that he is able to demonstrate he is tolerating oral intake Status: Acute (5) Diabetes mellitus: Problem details: continue bedside glucose monitoring; continue SSI Status: Acute (6) Esophagitis: Problem details: Recent history of heartburn with CT findings of mild thickening in the distal esophagus with a small amount of fluid in the esophagus. Temporarily treat with PPI, currently being given IV. Status: Acute (7) Physical deconditioning: Problem details: -working with PT and OT Status: Acute Subjective Date Seen: 07/21/24 Interval history: Daily Progress Note - Hospital Medicine Day #: 14 Post Op Day #: 10 CC: SBO, lysis of adhesions, ileus, acute DVT. 24 HOUR UPDATE: RN note: : Pleasant and cooperative. Walked halls X 3. Pt ate 1 vanilla ice cream, tolerated well. 2x loose BM?s. Bowels active. Passing gas. Pt burping occasionally. Pt did have about 25-50mL yellow emesis while having BM, pt requested sprite to sip on.?Midline incision LAVINIA, steri strips intact. Left arm wrapped in tubi reimbursement analyst and elevated. ? Notable Labs, Micro, Rads, Interventions: CBC stable. hgb drifting down, likely dilutional. Normal electrolytes. Renal function is normal. Objective: seems on an emotional roller coaster; feels like he can't make real progress. tried clears last night, went jusk ok Vitals: see above Lungs: Clear. Cardiac: S1S2. Abdomen: soft. extremities: b/l UE edema. left > right. edema wear to the left where known DVT exists. Disposition/Potential discharge - Home with and adult child. Today I spent 50minutes seeing the patient, reviewing Expanse and EPIC notes/diagnostics, discussing the care plan with our care time that includes social work, PT/OT, pharmacy, RT, detention and documenting my impressions and plan in the medical record. Exam Const: Vital Signs, click to edit/add: Vital Signs - 24 hr 07/20/24 10:18 07/20/24 11:08 07/20/24 12:11 Temperature 98 F Pulse Rate [Pulse Oximeter] 88 87 88 Respiratory Rate 18 Blood Pressure [Ri ght Arm] 184/94 H 133/77 178/93 H Pulse Oximetry 97 Oxygen Delivery Me thod Room Air Oxygen Flow Rate 07/20/24 15:05 07/20/24 15:05 07/20/24 15:05 Temperature 98.3 F Pulse Rate [Pulse Oximeter] 87 87 Respiratory Rate 22 22 22 Blood Pressure [Ri ght Arm] 199/105 H Pulse Oximetry 96 96 Oxygen Delivery Me thod Room Air Oxygen Flow Rate 07/20/24 15:07 07/20/24 18:19 07/20/24 19:00 Temperature 98.5 F Pulse Rate [Pulse Oximeter] 92 83 85 Respiratory Rate 22 Blood Pressure [Ri ght Arm] 182/98 H 195/108 H Pulse Oximetry 96 Oxygen Delivery Me thod Room Air Oxygen Flow Rate 07/20/24 22:53 07/20/24 23:00 07/20/24 23:00 Temperature 97.8 F Pulse Rate [Pulse Oximeter] 91 91 Respiratory Rate 20 20 20 Blood Pressure [Ri ght Arm] 177/89 H Pulse Oximetry 97 97 Oxygen Delivery Me thod Room Air Room Air Oxygen Flow Rate 10 07/21/24 04:16 07/21/24 05:45 07/21/24 07:40 Temperature 97.8 F Pulse Rate [Pulse Oximeter] 88 Respiratory Rate 20 18 Blood Pressure [Ri ght Arm] 164/79 H 189/104 H Pulse Oximetry 96 96 Oxygen Delivery Me thod Room Air Room Air Oxygen Flow Rate 07/21/24 07:40 07/21/24 07:40 Temperature 98.4 F Pulse Rate [Pulse Oximeter] 89 89 Respiratory Rate 18 18 Blood Pressure [Ri ght Arm] 174/89 H Pulse Oximetry 96 Oxygen Delivery Me thod Room Air Oxygen Flow Rate Labs Labs: Laboratory Results - last 24 hr 07/20/24 07/20/24 06:08 09:43 INR 1.16 H Lab Acknowledgement Test Added
[2024-07-21] MEDS: timoloL maleate 0.5 % 1 DROP EYE-BOTH (08:33)
[2024-07-21] MEDS: AA 5 %/CALCIUM/LYTES/DEXT 20 % 2,000 ML 95 ML IV (10:32)
--- NOTE | 2024-07-21 10:58 | PM.GSPN ---
Subjective Subjective Date Seen: 07/21/24 Interval history: Juan Manuel stated he had been feeling well yesterday and tolerating a full liquid diet but this morning did have emesis. This occurred when he was going to the bathroom. Otherwise he has no complaints. Still noting reflux symptoms. Exam Narrative: Exam Narrative: General: No acute distress Abdomen: Soft. Nontender. Protuberant. Bowel sounds noted throughout. Upper extremity swelling has improved. Const: Vital Signs, click to edit/add: Vital Signs - 24 hr 07/20/24 11:08 07/20/24 12:11 07/20/24 15:05 Temperature 98 F 98.3 F Pulse Rate [Pulse Oximeter] 87 88 87 Respiratory Rate 18 22 Blood Pressure [Ri ght Arm] 133/77 178/93 H 199/105 H Pulse Oximetry 97 96 Oxygen Delivery Me thod Room Air Oxygen Flow Rate 07/20/24 15:05 07/20/24 15:05 07/20/24 15:07 Temperature Pulse Rate [Pulse Oximeter] 87 92 Respiratory Rate 22 22 Blood Pressure [Ri ght Arm] 182/98 H Pulse Oximetry 96 Oxygen Delivery Me thod Room Air Oxygen Flow Rate 07/20/24 18:19 07/20/24 19:00 07/20/24 22:53 Temperature 98.5 F 97.8 F Pulse Rate [Pulse Oximeter] 83 85 91 Respiratory Rate 22 20 Blood Pressure [Ri ght Arm] 195/108 H 177/89 H Pulse Oximetry 96 97 Oxygen Delivery Me thod Room Air Room Air Oxygen Flow Rate 10 07/20/24 23:00 07/20/24 23:00 07/21/24 04:16 Temperature 97.8 F Pulse Rate [Pulse Oximeter] 91 88 Respiratory Rate 20 20 20 Blood Pressure [Ri ght Arm] 164/79 H Pulse Oximetry 97 96 Oxygen Delivery Me thod Room Air Room Air Oxygen Flow Rate 07/21/24 05:45 07/21/24 07:40 07/21/24 07:40 Temperature 98.4 F Pulse Rate [Pulse Oximeter] 89 Respiratory Rate 18 18 Blood Pressure [Ri ght Arm] 189/104 H 174/89 H Pulse Oximetry 96 96 Oxygen Delivery Me thod Room Air Room Air Oxygen Flow Rate 07/21/24 07:40 07/21/24 10:25 Temperature 98.2 F Pulse Rate [Pulse Oximeter] 89 83 Respiratory Rate 18 18 Blood Pressure [Ri ght Arm] 162/98 H Pulse Oximetry 96 Oxygen Delivery Me thod Room Air Oxygen Flow Rate Progress Note:A&P Assessment and plan (1) Ileus: Status: Acute (2) Acute deep vein thrombosis (DVT) of left upper extremity after procedure: Status: Acute (3) Peripheral edema: Status: Acute (4) S/P exploratory laparotomy: Status: Acute (5) Diabetes mellitus: Status: Acute Plan Juan Manuel is postop day 10 from exploratory laparotomy and lysis of adhesions from presumed small-bowel obstruction. He has been slow to regain return of bowel function. He is continuing to pass gas and have stools however when diet is advanced he has nausea. He did have emesis this morning. -x-ray will likely not be of benefit because if he has gaseous distention of the stomach and small bowel, I would not intervene at this point. -because he is complaining of reflux symptoms, we will check H pylori. He is currently on a PPI. -will have to continue TPN since he is unable to tolerate sufficient p.o. at this time. -continue Lovenox for catheter associated DVT. Will DC PICC as soon as patient is able to reliably take p.o. -did discuss addition of Reglan for possible component of gastro paresis, however in the setting of possible partial postop small bowel obstruction would avoid.
[2024-07-21] MEDS: PANTOPRAZOLE SODIUM 40 MG INJ IVP (12:04)
--- NOTE | 2024-07-21 15:11 | PC.NURSE ---
End of Shift, Pt has been pleasant and cooperative. no pain till later abd pain 4/10 and he got IV Tylenol. , TPN running at 95 and lipids at 14, till done. Picc dressing change was done. pt says he does feel good and he has a bubble in his stomach. he had 2 emesis on the toilet. later he wanted to try some pudding otherwise he wanted just water and ice chips. Patient is voiding in the toilet and did not have a BM so far. we do need a stool sample. he is up with SBA and a walker, ambulating in the hatch. Pt up to chair once . Blood sugar 255. Midline abdominal incision C/D/I. Left arm swollen on 2 pillows with tubi desktop publishing specialist double for compression. small red area on the left butt that a mepalix was appilies. both buttock applies for protection .
--- NOTE | 2024-07-21 19:40 | PC.NURSE ---
Nursing Care Hours: [id number] Pt this shift calm and cooperative, alert and oriented. SB assist with walker. TPN running. PICC asymptomatic. Treated for HTN per eMAR. Declined to go outside this shift. No BM. Walked hatch x1. Some nausea reported, q-easy aromatherapy started.
[2024-07-21] MEDS: LATANOPROST 0.005% OPHTH 1 DROP EYE-BOTH (20:27)
[2024-07-22] VITALS (7 sets, daily range): BP systolic 135–173; BP diastolic 84–101; PULSE 84–105; RESP 20; TEMP 36.4–36.9; O2SAT 94–97
[2024-07-22] MEDS: METOPROLOL TARTRATE 1 MG/ML inj 5 MG IVP ×5 (00:24→23:58)
[2024-07-22] MEDS: ENOXAPARIN 120 MG/0.8 ML INJ SUBCUT ×3 (00:24→23:57)
[2024-07-22] MEDS: SODIUM CHLORIDE 0.9 % (FLUSH) 10 ML SYRINGE 5 ML IVF ×5 (00:24→21:07)
[2024-07-22] MEDS: INSULIN ASPART 100 UNIT/ML SUBCUT ×5 (00:27→23:57)
[2024-07-22 04:45] LABS: Prealbumin 15.9 mg/dL (20.0-40.0)
[2024-07-22] MEDS: ENALAPRILAT 1.25 MG/ML IVP ×4 (04:57→22:16)
--- NOTE | 2024-07-22 05:35 | PC.NURSE ---
[id number] Pt encouraged to ambulate this shift, only ambulated to br and back to bed, tolerated well. denies N/V. small PO intake this shift, clears although full diet ordered. states he passed some gas but no BM. pain 3/10 to lower abdomen, cramping hypoactive bowel sounds all quadrants. midline incision steri strips C/D/I.
[2024-07-22] MEDS: HYDROmorphone 0.5 mg/0.5 ml inj IVP (05:49)
[2024-07-22 07:38] LABS: Anion Gap 6 mEq/L (7-15); Blood Urea Nitrogen* 17 mg/dL (7-30); Calcium* 8.8 mg/dL (8.4-10.6); Carbon Dioxide* 29 mmol/L (20-32); Chloride* 102 mmol/L (96-114); Creatinine* 0.8 mg/dL (0.5-1.5); Est. Creatinine Clearance* 64.84; Estimated Glomerular Filt Rate 91 ml/min; Glucose* 233 mg/dL (60-115); Potassium* 3.9 mmol/L (3.6-5.1); Sodium* 137 mmol/L (135-149)
[2024-07-22 07:39] LABS: Magnesium* 1.9 mg/dL (1.5-2.6); Phosphorus* 3.4 mg/dL (2.5-4.5)
[2024-07-22] MEDS: AA 5 %/CALCIUM/LYTES/DEXT 20 % 2,000 ML 95 ML IV (07:52)
[2024-07-22] MEDS: ACETAMINOPHEN INJ 1,000 MG/100 ML VIAL 400 MG IVPB ×3 (10:47→21:06)
[2024-07-22] MEDS: timoloL maleate 0.5 % 1 DROP EYE-BOTH (10:49)
--- NOTE | 2024-07-22 10:53 | PM.IMPN1 ---
Progress Note: A&P Assessment and plan (1) Ileus: Problem details: -post-op; slow improvement -having stools, passing gas -intermittent nausea with vomiting. Dr. Lu recommending no Reglan at this time Status: Acute (2) S/P exploratory laparotomy: Problem details: - Lysis of adhesions on 07/11/2024 - postop ileus slowly resolving - NG out 07/17 - advancing diet slowly - Continuing TPN at 95cc/hr - consider reducing to 50cc/hr when full liquid diet is tolerated and d/c Status: Acute (3) Acute deep vein thrombosis (DVT) of left upper extremity after procedure: Problem details: -from PICC line insertion/trauma -lovenox 1mg/kg BID -ok to leave PICC in place per gen surgery Status: Acute (4) Moderate protein-calorie malnutrition: Problem details: - minimal oral intake for the past 2 weeks as of 07/14/2024 - PICC ordered - TPN initiated 07/14/2024 and continue until the time that he is able to demonstrate he is tolerating oral intake Status: Acute (5) Diabetes mellitus: Problem details: continue bedside glucose monitoring; continue SSI Status: Acute (6) Esophagitis: Problem details: Recent history of heartburn with CT findings of mild thickening in the distal esophagus with a small amount of fluid in the esophagus. Temporarily treat with PPI, currently being given IV. Status: Acute (7) Physical deconditioning: Problem details: -working with PT and OT. Continue to encourage ambulation throughout the day Status: Acute Time Spent With Patient Total time spent: Total time spent caring for the patient today was 45 minutes. This includes time spent for the visit reviewing the chart, time spent during the visit, time spent after the visit and documentation and planning in coordination of care. Subjective Date Seen: 07/22/24 Interval history: Patient is seen lying in bed this morning. Reports feeling okay. Remains quite discouraged. Episodes of nausea with vomiting yesterday. None so far today. Passing gas and stool. Remains afebrile. Working on ambulating daily. Exam Narrative: Exam Narrative: PHYSICAL EXAM General: Pleasant, somewhat flat, otherwise NAD Cardiovascular: RRR, S1S2. No pitting edema Pulmonary: CTA bilaterally without rhonchi, rales, expiratory wheezes. No dyspnea on room air Abdominal: Soft, distended, NTTP Neurological: Alert, answering questions appropriately, cranial nerves intact, no focal findings Extremities: No gross joint deformity or swelling. AROMI. Neurovascularly intact Skin: Warm, dry. Const: Vital Signs, click to edit/add: Vital Signs - 24 hr 07/21/24 15:00 07/21/24 15:00 07/21/24 15:00 Temperature 98.3 F Pulse Rate [Pulse Oximeter] 88 88 Respiratory Rate 16 16 16 Blood Pressure [Ri ght Arm] 153/79 H Pulse Oximetry 97 97 Oxygen Delivery Me thod Room Air Room Air Oxygen Flow Rate 07/21/24 18:17 07/21/24 19:00 07/21/24 23:00 Temperature 98.4 F Pulse Rate [Pulse Oximeter] 87 Respiratory Rate 18 18 Blood Pressure [Ri ght Arm] 176/97 H 157/80 H Pulse Oximetry 97 98 Oxygen Delivery Me thod Room Air Room Air Oxygen Flow Rate 0 0 07/21/24 23:00 07/22/24 02:10 07/22/24 07:00 Temperature 98.4 F 98.1 F Pulse Rate [Pulse Oximeter] 84 84 Respiratory Rate 18 20 20 Blood Pressure [Ri ght Arm] 182/92 H 169/91 H Pulse Oximetry 98 97 94 Oxygen Delivery Me thod Room Air Room Air Room Air Oxygen Flow Rate 0 0 07/22/24 07:00 07/22/24 07:00 Temperature 98.3 F Pulse Rate [Pulse Oximeter] 87 87 Respiratory Rate 20 20 Blood Pressure [Ri ght Arm] 170/84 H Pulse Oximetry 94 Oxygen Delivery Me thod Room Air Oxygen Flow Rate Labs Labs: Laboratory Results - last 24 hr 07/20/24 07/22/24 06:08 06:04 Sodium 137 Potassium 3.9 Chloride 102 Carbon Dioxide 29 Anion Gap 6 L BUN 17 Creatinine 0.8 Estimated Creat Clear 64.84 Estimated GFR 91 Glucose 233 H Calcium 8.8 Phosphorus 3.4 Magnesium 1.9 Prealbumin 15.9 L
--- NOTE | 2024-07-22 12:30 | PM.GSPN ---
Subjective Subjective Date Seen: 07/22/24 Interval history: Juan Manuel has not had any nausea since yesterday. Last bowel movement was yesterday but he is passing gas. He had hot cereal for breakfast and was able to eat the whole bowl. He is feeling well overall. Exam Narrative: Exam Narrative: General: Alert and oriented no acute distress Abdomen: Protuberant. Bowel sounds are still present. Incision without erythema. Ecchymosis resolving. Const: Vital Signs, click to edit/add: Vital Signs - 24 hr 07/21/24 15:00 07/21/24 15:00 07/21/24 15:00 Temperature 98.3 F Pulse Rate [Pulse Oximeter] 88 88 Respiratory Rate 16 16 16 Blood Pressure [Ri ght Arm] 153/79 H Pulse Oximetry 97 97 Oxygen Delivery Me thod Room Air Room Air Oxygen Flow Rate 07/21/24 18:17 07/21/24 19:00 07/21/24 23:00 Temperature 98.4 F Pulse Rate [Pulse Oximeter] 87 Respiratory Rate 18 18 Blood Pressure [Ri ght Arm] 176/97 H 157/80 H Pulse Oximetry 97 98 Oxygen Delivery Me thod Room Air Room Air Oxygen Flow Rate 0 0 07/21/24 23:00 07/22/24 02:10 07/22/24 07:00 Temperature 98.4 F 98.1 F Pulse Rate [Pulse Oximeter] 84 84 Respiratory Rate 18 20 20 Blood Pressure [Ri ght Arm] 182/92 H 169/91 H Pulse Oximetry 98 97 94 Oxygen Delivery Me thod Room Air Room Air Room Air Oxygen Flow Rate 0 0 07/22/24 07:00 07/22/24 07:00 07/22/24 11:00 Temperature 98.3 F 98.5 F Pulse Rate [Pulse Oximeter] 87 87 89 Respiratory Rate 20 20 20 Blood Pressure [Ri ght Arm] 170/84 H 135/101 H Pulse Oximetry 94 97 Oxygen Delivery Me thod Room Air Room Air Oxygen Flow Rate Progress Note:A&P Assessment and plan (1) Peripheral edema: Status: Acute (2) Ileus: Status: Acute (3) Acute deep vein thrombosis (DVT) of left upper extremity after procedure: Status: Acute (4) S/P exploratory laparotomy: Status: Acute (5) Diabetes mellitus: Status: Acute (6) Esophagitis: Status: Acute (7) Moderate protein-calorie malnutrition: Status: Acute (8) Physical deconditioning: Status: Acute Plan The patient is a 79-year-old male who is postop day 11 status post exploratory laparotomy and lysis of adhesions for presumed small-bowel obstruction. He has had return of bowel function which has been fairly consistent for the last week, however he continues to have nausea with advancement of p.o.. Today he is doing better than he has been previously and was able to eat hot cereal. Will continue to increase oral intake slowly as long as he has antegrade bowel function. Patient and updated today. -agree with holding off on switching meds to oral as I am still not sure that he is absorbing. If he does not have significant nausea over the next 24 hours it is reasonable to switch to oral meds. -continue TPN until he is able to take p.o. reliably -continue Lovenox for catheter associated DVT. Will plan on discontinuing PICC line once he is able to take p.o.. -encourage IS and ambulation. -if he has ongoing nausea could consider small Gastrografin challenge to see if contrast flows through.
[2024-07-22] MEDS: PANTOPRAZOLE SODIUM 40 MG INJ IVP (15:08)
--- NOTE | 2024-07-22 15:58 | PM.IMPN1 ---
Progress Note: A&P Assessment and plan (1) Bowel obstruction: Problem details: Prolonged course of bowel obstruction symptoms. Failed conservative management. Laparotomy with lysis of adhesions on July 11. Postop ileus. TPN pending adequate p.o. nutrition Status: Acute (2) Ileus: Problem details: -post-op; slow improvement -having stools, passing gas Beginning to tolerate oral fluids without vomiting Status: Acute (3) S/P exploratory laparotomy: Problem details: - Lysis of adhesions on 07/11/2024 - postop ileus slowly resolving - NG out 07/17 - advancing diet slowly - Continuing TPN at 95cc/hr - consider reducing to 50cc/hr when full liquid diet is tolerated and d/c Status: Acute (4) Acute deep vein thrombosis (DVT) of left upper extremity after procedure: Problem details: -from PICC line insertion/trauma. Continue PICC line in place while treating DVT. -lovenox 1mg/kg BID Status: Acute (5) Diabetes mellitus: Problem details: continue bedside glucose monitoring; continue SSI Status: Acute (6) Esophagitis: Problem details: Recent history of heartburn with CT findings of mild thickening in the distal esophagus with a small amount of fluid in the esophagus. Temporarily treat with PPI, currently being given IV. Status: Acute (7) Moderate protein-calorie malnutrition: Problem details: - minimal oral intake for the past 2 weeks as of 07/14/2024 - TPN initiated 07/14/2024 and continue until the time that he is able to demonstrate he is tolerating oral intake Status: Acute (8) Physical deconditioning: Problem details: -working with PT and OT. Continue to encourage ambulation throughout the day Status: Acute Plan Continue to coordinate with surgery for management of bowel obstruction/ileus. Continue TPN. Will transition to oral medications. Time Spent With Patient Total time spent: Total time spent today is 50 minutes in evaluation and management, discussing with patient and other providers ongoing evaluation and management. Subjective Date Seen: 07/23/24 Interval history: 79-year-old male admitted to the hospital on July 08 with persistent vomiting as well as some diarrhea. At the time of admission the cause for his symptoms were unclear. CT scan showed mildly dilated small bowel loops without a definite transition point. Initially managed conservatively but he did not improve. Taken to the OR by Dr. Lu on July 11 where he had exploratory laparotomy and lysis of adhesions. Postoperatively he has had a slow recovery with slow return of bowel activity and tolerance of oral fluids. Nutrition support with TPN. Yesterday he had full liquid diet without emesis all day but then had an emesis last evening, 2 hours after drinking Ensure and eating cream of wheat. He is still passing gas. Last BM was yesterday per Appetite is still poor. He is discouraged by his slow progress. Exam Narrative: Exam Narrative: He is alert and appears in no distress. Speech is normal. Respirations are clear to auscultation. Cardiovascular: S1, S2, regular rate and rhythm. Abdomen: Laparotomy incision is clean and dry and healing well without erythema. Bowel sounds are present but diminished. Abdomen is soft. He has mild tenderness on the left side of his abdomen. Extremities with trace edema. He moves all 4 extremities well. Const: Vital Signs, click to edit/add: Vital Signs - 24 hr 07/21/24 18:17 07/21/24 19:00 07/21/24 23:00 Temperature 98.4 F Pulse Rate [Pulse Oximeter] 87 Respiratory Rate 18 18 Blood Pressure [Ri ght Arm] 176/97 H 157/80 H Pulse Oximetry 97 98 Oxygen Delivery Me thod Room Air Room Air Oxygen Flow Rate 0 0 07/21/24 23:00 07/22/24 02:10 07/22/24 07:00 Temperature 98.4 F 98.1 F Pulse Rate [Pulse Oximeter] 84 84 Respiratory Rate 18 20 20 Blood Pressure [Ri ght Arm] 182/92 H 169/91 H Pulse Oximetry 98 97 94 Oxygen Delivery Me thod Room Air Room Air Room Air Oxygen Flow Rate 0 0 07/22/24 07:00 07/22/24 07:00 07/22/24 11:00 Temperature 98.3 F 98.5 F Pulse Rate [Pulse Oximeter] 87 87 89 Respiratory Rate 20 20 20 Blood Pressure [Ri ght Arm] 170/84 H 135/101 H Pulse Oximetry 94 97 Oxygen Delivery Me thod Room Air Room Air Oxygen Flow Rate Documenting provider has reviewed patient's vital signs: yes Labs Labs: Laboratory Results - last 24 hr 07/20/24 07/22/24 06:08 06:04 Sodium 137 Potassium 3.9 Chloride 102 Carbon Dioxide 29 Anion Gap 6 L BUN 17 Creatinine 0.8 Estimated Creat Clear 64.84 Estimated GFR 91 Glucose 233 H Calcium 8.8 Phosphorus 3.4 Magnesium 1.9 Prealbumin 15.9 L
--- NOTE | 2024-07-22 16:18 | PC.NURSE ---
RN updated Dr. Mcleod that patient has been tolerating a full liquid diet today without any nausea or vomiting. Pt ate malt O'meal for breakfast and lunch and drank juice with no issues. Dr. Mcleod assessed pt and advised RN to give pt an Ensure to try and will continue to run TPN fluids for another day until pt receives more protein and calories orally.
[2024-07-22] MEDS: FAT EMULSIONS 20 % 250 ML/250 ML BAG 14 ML IV (18:04)
[2024-07-22 19:21] LABS: H pylori Ag Stool* Negative (Negative)
[2024-07-22] MEDS: LATANOPROST 0.005% OPHTH 1 DROP EYE-BOTH (21:07)
[2024-07-22] MEDS: ONDANSETRON 2 MG/ML inj 4 MG IVP (22:16)
--- NOTE | 2024-07-22 23:04 | PC.NURSE ---
Pt VSS with one hypertensive blood pressure reading. A febrile. A & O. Advanced to a full liquid diet. Tolerated well. Ate malt O' meal for dinner and consumed approx. 50%. Drank a chocolate Ensure prior to dinner and at approx. 2200 c/o of nausea and had x1 emesis. Pt thinks Ensure drink caused them to vomit. RN gave PRN Zofran following emesis episode. RN checked on pt at approx 2245 and pt was sleeping soundly. Ambulated x2 in the hatch this evening which met their goal for a total of 5 times today. SBA with gait belt and walker for ambulation.
[2024-07-23] VITALS (10 sets, daily range): BP systolic 143–177; BP diastolic 82–106; PULSE 91–108; RESP 16–20; TEMP 36.4–36.9; O2SAT 95–100
[2024-07-23] MEDS: ACETAMINOPHEN INJ 1,000 MG/100 ML VIAL 400 MG IVPB ×2 (02:53→14:57)
[2024-07-23] MEDS: ENALAPRILAT 1.25 MG/ML IVP ×2 (04:15→10:44)
[2024-07-23] MEDS: SODIUM CHLORIDE 0.9 % (FLUSH) 10 ML SYRINGE 5 ML IVF ×5 (04:16→20:51)
[2024-07-23] MEDS: METOPROLOL TARTRATE 1 MG/ML inj 5 MG IVP ×3 (05:23→18:02)
[2024-07-23] MEDS: AA 5 %/CALCIUM/LYTES/DEXT 20 % 2,000 ML 95 ML IV (05:23)
[2024-07-23] MEDS: INSULIN ASPART 100 UNIT/ML SUBCUT ×3 (05:42→18:02)
--- NOTE | 2024-07-23 05:50 | PC.NURSE ---
Shift note: Pt's condition is improving. Pt confirmed mild nausea at 0030, did not require medication. Pt has been using aromatherapy since 2200. No fever recorded. Elevated Bp, medications given as prescribed. Active bowel sound. Pt confirmed passing gas. Ambulated with A1, walker and GB. Incision intact, clean and dry.
[2024-07-23 06:53] LABS: Chloride* 102 mmol/L (96-114); Potassium* 4.2 mmol/L (3.6-5.1); Sodium* 135 mmol/L (135-149)
[2024-07-23 06:55] LABS: Creatinine* 0.8 mg/dL (0.5-1.5); Est. Creatinine Clearance* 64.84; Estimated Glomerular Filt Rate 91 ml/min
[2024-07-23 06:56] LABS: Anion Gap 5 mEq/L (7-15); Blood Urea Nitrogen* 18 mg/dL (7-30); Carbon Dioxide* 28 mmol/L (20-32); Glucose* 230 mg/dL (60-115); Phosphorus* 3.7 mg/dL (2.5-4.5)
[2024-07-23] MEDS: ONDANSETRON 2 MG/ML inj 4 MG IVP (08:39)
[2024-07-23] MEDS: timoloL maleate 0.5 % 1 DROP EYE-BOTH (09:13)
[2024-07-23] MEDS: ENOXAPARIN 120 MG/0.8 ML INJ SUBCUT (12:49)
[2024-07-23] MEDS: PANTOPRAZOLE SODIUM 40 MG INJ IVP (14:58)
--- NOTE | 2024-07-23 15:34 | P.GSPN_ITS ---
Subjective Subjective Date Seen: 07/23/24 Interval history: Juan Manuel feels he is doing better though last evening after drinking Ensure he vomited. He states that he felt like he vomited quite a bit. He had otherwise tolerated food all day long. He states that he has only felt nauseated in the evenings and night. That he feels full right below his inferior sternum. Otherwise he states that his postoperative pain is basically gone. He continues to have bowel movements and passed gas daily. Exam Narrative: Exam Narrative: General: No acute distress Respiratory: Breathing nonlabored on room air Abdomen: Soft. Normoactive bowel sounds. Nontender. Incision is clean and dry. Const: Vital Signs, click to edit/add: Vital Signs - 24 hr 07/22/24 17:49 07/22/24 19:00 07/22/24 23:00 Temperature 98.4 F 98.3 F Pulse Rate [Pulse Oximeter] 84 105 H Respiratory Rate 20 20 Blood Pressure [Ri ght Arm] 156/93 H Pulse Oximetry 97 Oxygen Delivery Me thod Room Air Oxygen Flow Rate 0 07/22/24 23:00 07/22/24 23:00 07/23/24 02:53 Temperature 97.6 F 97.6 F Pulse Rate [Pulse Oximeter] 84 Respiratory Rate 20 20 Blood Pressure [Ri ght Arm] 173/94 H Pulse Oximetry 97 97 Oxygen Delivery Me thod Room Air Room Air Oxygen Flow Rate 07/23/24 03:00 07/23/24 04:11 07/23/24 08:28 Temperature 97.6 F 97.6 F 97.9 F Pulse Rate [Pulse Oximeter] 95 97 Respiratory Rate 20 18 Blood Pressure [Ri ght Arm] 177/97 H 143/86 H Pulse Oximetry 100 95 Oxygen Delivery Me thod Room Air Room Air Oxygen Flow Rate 07/23/24 08:29 07/23/24 11:00 07/23/24 12:00 Temperature 98 F Pulse Rate [Pulse Oximeter] 93 98 Respiratory Rate 18 18 Blood Pressure [Ri ght Arm] 146/86 H 173/106 H Pulse Oximetry 95 98 Oxygen Delivery Me thod Room Air Room Air Oxygen Flow Rate Labs/Imaging Labs Labs: Electrolytes within normal limits Progress Note:A&P Assessment and plan (1) Acute deep vein thrombosis (DVT) of left upper extremity after procedure: Status: Acute (2) Ileus: Status: Acute (3) Peripheral edema: Status: Acute (4) S/P exploratory laparotomy: Status: Acute (5) Diabetes mellitus: Status: Acute (6) Moderate protein-calorie malnutrition: Status: Acute (7) Esophagitis: Status: Acute (8) Physical deconditioning: Status: Acute Plan Juan Manuel is a 79-year-old male who is postop day 12 from exploratory laparotomy and lysis of adhesions for presumed small-bowel obstruction. He has return of bowel function, however with diet advancement he has had nausea as well as vomiting twice this week. He has been moving his bowels daily for the last 6 days however. He feels as though he is improving. The nausea that he is having is intermittent. He states that he does get full more easily than usual right now. He would like to try a soft diet if possible. -will advance diet to soft -he may still have a component of ileus, however he does not appear to be clinically obstructed. Will try scheduling Zofran to see if this will help his symptoms for the next couple of days. -continue TPN for now although I agree with decreasing since he is taking some p.o.. -will be able to DC TPN once his p.o. was more reliable. -okay to start oral meds today. -continue Lovenox for catheter associated thrombus. Will remove PICC line as soon as patient is able to tolerate PO -if continued nausea and vomiting on Thursday will consider small-bowel follow- through
[2024-07-23] MEDS: ONDANSETRON ODT 4 MG TAB PO (18:04)
[2024-07-23] MEDS: METFORMIN ER 500 MG 1000 MG PO (18:04)
[2024-07-23] MEDS: LATANOPROST 0.005% OPHTH 1 DROP EYE-BOTH (20:51)
[2024-07-24] VITALS (7 sets, daily range): BP systolic 136–171; BP diastolic 70–101; PULSE 88–101; RESP 16–20; TEMP 36.3–37; O2SAT 94–99
[2024-07-24] MEDS: ENOXAPARIN 120 MG/0.8 ML INJ SUBCUT (00:35)
[2024-07-24] MEDS: METOPROLOL TARTRATE 1 MG/ML inj 5 MG IVP ×2 (00:35→07:25)
[2024-07-24] MEDS: ACETAMINOPHEN 650 MG TABLET ER 1300 MG PO ×3 (00:36→17:20)
[2024-07-24] MEDS: HYDROmorphone 0.5 mg/0.5 ml inj IVP (00:36)
[2024-07-24] MEDS: INSULIN ASPART 100 UNIT/ML SUBCUT ×4 (00:37→23:26)
[2024-07-24] MEDS: PROCHLORPERAZINE 5 MG/ML VIAL 10 MG IV (00:44)
[2024-07-24] MEDS: AA 5 %/CALCIUM/LYTES/DEXT 20 % 2,000 ML 95 ML IV (02:20)
--- NOTE | 2024-07-24 06:53 | PC.NURSE ---
End of shift report: Alert and oriented x 4. Pleasant and cooperative with cares, flat affect when conversing. Tolerating small amounts of soft food, nausea reported and PRN prochlorperazine administered with effective results. Abdomen round, firm and distended, bowel sounds active x 4 quadrants and passing flatus.At 0600 TPN paused to allow for blood draw, while attempting to draw back lab specimen after flushing line with 20ml normal saline display card writer was having difficulty getting return. Inspected syringe that had 9cc of blood return and noted to have small clumps of cells. Direct Support Staff Member stopped and notified provider. OK to continue using TPN line but do not use 2nd lumen. Communicated to oncoming nurse and oncoming charge nurse of MD weinstein
[2024-07-24 07:13] LABS: Chloride* 103 mmol/L (96-114)
[2024-07-24 07:14] LABS: Potassium* 4.3 mmol/L (3.6-5.1); Sodium* 136 mmol/L (135-149)
[2024-07-24 07:16] LABS: Anion Gap 6 mEq/L (7-15); Carbon Dioxide* 27 mmol/L (20-32); Creatinine* 0.9 mg/dL (0.5-1.5); Est. Creatinine Clearance* 64.84; Estimated Glomerular Filt Rate 87 ml/min
[2024-07-24 07:17] LABS: Blood Urea Nitrogen* 20 mg/dL (7-30); Calcium* 9.1 mg/dL (8.4-10.6); Glucose* 179 mg/dL (60-115); Magnesium* 1.9 mg/dL (1.5-2.6); Phosphorus* 4.2 mg/dL (2.5-4.5)
[2024-07-24] MEDS: METFORMIN ER 500 MG 1000 MG PO ×2 (08:04→17:20)
[2024-07-24] MEDS: ONDANSETRON ODT 4 MG TAB PO ×3 (08:04→17:20)
[2024-07-24] MEDS: ATORVASTATIN 10 MG TABLET PO (09:49)
[2024-07-24] MEDS: AMLODIPINE 10 MG TABLET 5 MG PO (09:49)
[2024-07-24] MEDS: METOPROLOL SUCCINATE (XL) 50 MG TAB PO (09:49)
[2024-07-24] MEDS: FINASTERIDE 5 MG TABLET PO (09:50)
[2024-07-24] MEDS: timoloL maleate 0.5 % 1 DROP EYE-BOTH (09:53)
--- NOTE | 2024-07-24 10:02 | P.IMPN_ITS ---
Progress Note: A&P Assessment and plan (1) Acute deep vein thrombosis (DVT) of left upper extremity after procedure: Problem details: -from PICC line insertion/trauma. Continue PICC line in place while treating DVT. Switch from enoxaparin to apixaban for 3 months course of treatment Status: Acute (2) Ileus: Problem details: -post-op; slow improvement -having stools, passing gas Beginning to tolerate oral fluids without vomiting Status: Acute (3) S/P exploratory laparotomy: Problem details: - Lysis of adhesions on 07/11/2024 - postop ileus slowly resolving - NG out 07/17 - advancing diet slowly - Continuing TPN at 95cc/hr - consider reducing to 50cc/hr when full liquid diet is tolerated and d/c Status: Acute (4) Diabetes mellitus: Problem details: continue bedside glucose monitoring; continue SSI Status: Acute (5) Moderate protein-calorie malnutrition: Problem details: - minimal oral intake for the past 2 weeks as of 07/14/2024 - TPN initiated 07/14/2024 and continue until the time that he is able to demonstrate he is tolerating oral intake Status: Acute (6) Esophagitis: Problem details: Recent history of heartburn with CT findings of mild thickening in the distal esophagus with a small amount of fluid in the esophagus. Temporarily treat with PPI, currently being given IV. Status: Acute (7) Physical deconditioning: Problem details: -working with PT and OT. Continue to encourage ambulation throughout the day Status: Acute (8) Hypertension: Problem details: - restarting home meds. Status: Chronic Plan Continue hospitalization for management of ileus with TPN. Anticipate stopping TPN when oral intake is adequate. Transition from IV to oral medications with continued monitoring of chronic medical problems. Time Spent With Patient Total time spent: Total time spent today is 40 minutes in evaluation management Subjective Date Seen: 07/24/24 Interval history: 79-year-old male admitted to the hospital on July 08 with persistent v omiting as well as some diarrhea. At the time of admission the cause for his symptoms were unclear. CT scan showed mildly dilated small bowel loops without a definite transition point. Initially managed conservatively but he did not improve. Taken to the OR by Dr. Lu on July 11 where he had exploratory laparotomy and lysis of adhesions. Postoperatively he has had a slow recovery with slow return of bowel activity and tolerance of oral fluids. Nutrition support with TPN. Patient reports some improvement. He is eating a little more. He has had no emesis in about 36 hours. Had a small formed stool this morning. Minimal abdominal pain. Ambulating well. Exam Narrative: Exam Narrative: He is alert and appears in no distress. Respirations are clear to auscultation. Cardiovascular: S1, S2, regular rhythm. Abdomen: Bowel sounds active. Abdomen is soft with minimal lower abdominal tenderness. Incision is clean and dry without erythema or drainage. Const: Vital Signs, click to edit/add: Vital Signs - 24 hr 07/23/24 11:00 07/23/24 12:00 07/23/24 15:00 Temperature 98 F Pulse Rate [Pulse Oximeter] 93 98 Respiratory Rate 18 18 Blood Pressure [Ri ght Arm] 146/86 H 173/106 H Pulse Oximetry 98 97 Oxygen Delivery Me thod Room Air Room Air Oxygen Flow Rate 07/23/24 15:00 07/23/24 19:00 07/23/24 23:00 Temperature 98.5 F 98.1 F Pulse Rate [Pulse Oximeter] 92 91 108 H Respiratory Rate 18 18 18 Blood Pressure [Ri ght Arm] 153/82 H 176/105 H Pulse Oximetry 97 98 Oxygen Delivery Me thod Room Air Room Air Oxygen Flow Rate 07/23/24 23:00 07/23/24 23:00 07/24/24 03:00 Temperature 98.1 F 98.1 F Pulse Rate [Pulse Oximeter] 108 H 88 Respiratory Rate 16 16 20 Blood Pressure [Ri ght Arm] 173/98 H 164/87 H Pulse Oximetry 96 96 98 Oxygen Delivery Me thod Room Air Room Air Room Air Oxygen Flow Rate 0 0 Documenting provider has reviewed patient's vital signs: yes Labs Labs: Laboratory Results - last 24 hr 07/24/24 06:46 Sodium 136 Potassium 4.3 Chloride 103 Carbon Dioxide 27 Anion Gap 6 L BUN 20 Creatinine 0.9 Estimated Creat Clear 64.84 Estimated GFR 87 Glucose 179 H Calcium 9.1 Phosphorus 4.2 Magnesium 1.9
[2024-07-24] MEDS: PANTOPRAZOLE SODIUM 40 MG INJ IVP (14:20)
[2024-07-24] MEDS: APIXABAN 5 MG TABLET PO ×2 (14:20→20:17)
--- NOTE | 2024-07-24 15:05 | PM.GSPN ---
Subjective Subjective Date Seen: 07/24/24 Interval history: Juan Manuel states he has been feeling better every day though he still has some nausea with eating. Continues to pass gas. Had a small firm bowel movement today. Last regular bowel movement was yesterday. Exam Narrative: Exam Narrative: General: No acute distress Abdomen: Protuberant. Very active bowel sounds in all quadrants. Incision without erythema. Const: Vital Signs, click to edit/add: Vital Signs - 24 hr 07/23/24 19:00 07/23/24 23:00 07/23/24 23:00 Temperature 98.1 F Pulse Rate [Pulse Oximeter] 91 108 H Respiratory Rate 18 18 16 Blood Pressure [Ri ght Arm] 176/105 H Pulse Oximetry 98 96 Oxygen Delivery Me thod Room Air Room Air Oxygen Flow Rate 0 07/23/24 23:00 07/24/24 03:00 07/24/24 07:00 Temperature 98.1 F 98.1 F Pulse Rate [Pulse Oximeter] 108 H 88 88 Respiratory Rate 16 20 20 Blood Pressure [Ri ght Arm] 173/98 H 164/87 H Pulse Oximetry 96 98 Oxygen Delivery Me thod Room Air Room Air Oxygen Flow Rate 0 07/24/24 07:00 07/24/24 07:00 07/24/24 11:00 Temperature 98.1 F 98.6 F Pulse Rate [Pulse Oximeter] 88 97 Respiratory Rate 20 20 20 Blood Pressure [Ri ght Arm] 171/101 H 141/89 H Pulse Oximetry 95 95 95 Oxygen Delivery Me thod Room Air Room Air Room Air Oxygen Flow Rate 0 Progress Note:A&P Assessment and plan (1) Acute deep vein thrombosis (DVT) of left upper extremity after procedure: Status: Acute (2) Ileus: Status: Acute (3) Peripheral edema: Status: Acute (4) S/P exploratory laparotomy: Status: Acute (5) Diabetes mellitus: Status: Acute (6) Moderate protein-calorie malnutrition: Status: Acute (7) Physical deconditioning: Status: Acute Plan Juan Manuel is a 71-year-old male who is postop day 13 status post exploratory laparotomy and lysis of adhesions for presumed small-bowel obstruction. He has consistent return of bowel function however still struggles with nausea. -continue soft diet and scheduled Zofran. -consider further decreasing TPN; if he is able to maintain p.o., could DC in the next 1-2 days -continue Lovenox for catheter associated DVT. -continue to encourage IS and ambulation.
--- NOTE | 2024-07-24 18:19 | PC.NURSE ---
Shift Note 07-19: One of PICC lumens noted to be occluded by previous RN. Per MD this lumen is not to be used and it has been labeled. Second lumen has TPN infusing without difficulty. Pt transitioned to PO medications and is tolerating them well. He denies nausea, even post meal time and has not had any emesis. He has been consuming 50-75% of his trays including new zealander toast for breakfast and egg salad and mashed pototates for lunch with an icecream cup. He continues to ambulate frequently and report flatus. He did have a small BM this morning and has good bowel tones. Multiple family in to visit pt throughout the day. He plans to shower this evening prior to HS. Surgical site well approximated and without signs of infection. Pt rates pain 3/10 and states Tylenol is effective for pain management.
[2024-07-24] MEDS: LATANOPROST 0.005% OPHTH 1 DROP EYE-BOTH (20:17)
[2024-07-24] MEDS: SODIUM CHLORIDE 0.9 % (FLUSH) 10 ML SYRINGE 5 ML IVF (20:18)
--- NOTE | 2024-07-24 21:22 | PC.NURSE ---
Pt had moderate to large BM this evening. He described as normal. RN did not witness.
[2024-07-25] VITALS (11 sets, daily range): BP systolic 145–171; BP diastolic 77–112; PULSE 92–100; RESP 16–24; TEMP 36.4–36.9; O2SAT 95–98
[2024-07-25] MEDS: AA 5 %/CALCIUM/LYTES/DEXT 20 % 2,000 ML 95 ML IV (00:43)
--- NOTE | 2024-07-25 04:34 | PC.NURSE ---
Pt reporting zero pain this night. Up walking halls. Having soft formed stools. Afebrile. Tolerating soft diet.
[2024-07-25] MEDS: INSULIN ASPART 100 UNIT/ML SUBCUT ×2 (05:41→11:44)
[2024-07-25 06:50] LABS: Albumin* 3.1 g/dL (3.3-5.0); Chloride* 102 mmol/L (96-114); Sodium* 136 mmol/L (135-149)
[2024-07-25 06:53] LABS: Alkaline Phosphatase* 99 U/L (40-150); Anion Gap 7 mEq/L (7-15); Aspartate Amino Transferase* 28 U/L (12-35); Bilirubin Total* 0.5 mg/dL (0.1-1.5); Blood Urea Nitrogen* 22 mg/dL (7-30); Carbon Dioxide* 27 mmol/L (20-32); Creatinine* 0.9 mg/dL (0.5-1.5); Est. Creatinine Clearance* 64.84; Estimated Glomerular Filt Rate 87 ml/min; Glucose* 225 mg/dL (60-115); Phosphorus* 3.9 mg/dL (2.5-4.5)
[2024-07-25 06:54] LABS: Alanine Aminotransferase* 47 U/L (4-50); Magnesium* 1.8 mg/dL (1.5-2.6)
[2024-07-25] MEDS: METFORMIN ER 500 MG 1000 MG PO ×2 (08:34→17:30)
[2024-07-25] MEDS: ONDANSETRON ODT 4 MG TAB PO ×3 (08:35→17:30)
[2024-07-25] MEDS: ACETAMINOPHEN 650 MG TABLET ER 1300 MG PO ×2 (08:52→17:29)
[2024-07-25] MEDS: lisinopriL 20 MG TABLET 10 MG PO (08:53)
[2024-07-25] MEDS: FINASTERIDE 5 MG TABLET PO (08:53)
[2024-07-25] MEDS: timoloL maleate 0.5 % 1 DROP EYE-BOTH (08:53)
[2024-07-25] MEDS: ATORVASTATIN 10 MG TABLET PO (08:53)
[2024-07-25] MEDS: METOPROLOL SUCCINATE (XL) 50 MG TAB PO (08:53)
[2024-07-25] MEDS: AMLODIPINE 10 MG TABLET 5 MG PO (08:53)
[2024-07-25] MEDS: APIXABAN 5 MG TABLET PO ×2 (08:57→20:51)
--- NOTE | 2024-07-25 09:53 | PM.GSPN ---
Subjective Subjective Date Seen: 07/25/24 Interval history: Juan Manuel feels better today. He has been tolerating a soft diet. He has not been having as much nausea. Has not vomited for 2 days. Continues to move his bowels. He is frustrated because he is still in the hospital. Exam Narrative: Exam Narrative: General: No acute distress abdomen: Protuberant. Soft, nontender. Const: Vital Signs, click to edit/add: Vital Signs - 24 hr 07/24/24 11:00 07/24/24 15:00 07/24/24 15:00 Temperature 98.6 F 98.4 F Pulse Rate [Pulse Oximeter] 97 97 Respiratory Rate 20 20 20 Blood Pressure [Le ft Arm] Blood Pressure [Ri ght Arm] 141/89 H 136/80 Pulse Oximetry 95 94 97 Oxygen Delivery Me thod Room Air Room Air Room Air Oxygen Flow Rate 0 0 0 07/24/24 15:00 07/24/24 19:14 07/24/24 22:23 Temperature 97.4 F L Pulse Rate [Pulse Oximeter] 97 101 H 101 H Respiratory Rate 20 16 16 Blood Pressure [Le ft Arm] Blood Pressure [Ri ght Arm] 141/70 H Pulse Oximetry 97 Oxygen Delivery Me thod Room Air Oxygen Flow Rate 07/24/24 22:23 07/24/24 23:20 07/25/24 01:38 Temperature 97.6 F 97.6 F Pulse Rate [Pulse Oximeter] 96 Respiratory Rate 16 16 Blood Pressure [Le ft Arm] 153/88 H Blood Pressure [Ri ght Arm] Pulse Oximetry 97 99 Oxygen Delivery Me thod Room Air Room Air Oxygen Flow Rate 0 07/25/24 02:38 07/25/24 08:31 07/25/24 08:31 Temperature 98.2 F 98.5 F Pulse Rate [Pulse Oximeter] 98 99 96 Respiratory Rate 16 20 20 Blood Pressure [Le ft Arm] Blood Pressure [Ri ght Arm] 156/79 H 158/112 H Pulse Oximetry 96 96 Oxygen Delivery Me thod Room Air Room Air Oxygen Flow Rate 07/25/24 08:31 07/25/24 08:33 Temperature Pulse Rate [Pulse Oximeter] 96 Respiratory Rate 20 Blood Pressure [Le ft Arm] Blood Pressure [Ri ght Arm] 171/93 H Pulse Oximetry 96 Oxygen Delivery Me thod Room Air Oxygen Flow Rate Progress Note:A&P Assessment and plan (1) Acute deep vein thrombosis (DVT) of left upper extremity after procedure: Status: Acute (2) Ileus: Status: Acute (3) S/P exploratory laparotomy: Status: Acute (4) Diabetes mellitus: Status: Acute (5) Peripheral edema: Status: Acute (6) Moderate protein-calorie malnutrition: Status: Acute Plan Juan Manuel is a 79-year-old male who is postop day 14 from exploratory laparotomy and lysis of adhesions for presumed small-bowel obstruction. He has had return of bowel function for now at least 1 week, however has had nausea with advancement of diet. Of note, these are similar symptoms to when he presented. - Continue soft diet. Consider weaning scheduled Zofran - will discuss with hospitalist titrating TPN with goal to stop. - Continue Lovenox for catheter associated DVT. Will remove PICC line once patient is off of TPN - discussed with Juan Manuel that as long as he continues to tolerate a soft diet he could potentially discharge home in the next few days. He was amenable to this.
--- NOTE | 2024-07-25 11:50 | NUTR.NU ---
RDN with diet education related to current diet order. Patient is being titrated off TPN with goal of stopping altogether. Continues to pass gas and bowel movements. He has been able to tolerated solid foods without vomiting. He continues to have some nausea, however reports zofran is helping. Weight continues to be stable at 260 lbs. Current diet is soft/surgical soft diet. He tolerated frisian toast this morning. I visited with patient and , Siobhan (designated caregiver) whom agreed to receive diet education related to surgical soft/low fiber diet. Patient was provided diet education related to surgical soft/low fiber diet.? Education provided on following a low fiber diet for the next ~2 weeks or per MD recommendation.? Education included recommendations on following a low-fiber diet of less than 8 grams of fiber per day and included foods that are recommended and not recommended.?Also discussed avoiding foods high in sugar, spice, and fat. Recommended patient eat small, frequent meals about 4-6 times daily instead of 3 big meals as this may be better tolerated. Verbal and written information as well as sample menu provided from [facility] on nutrition therapy for low-fiber diet and fiber content of foods.?Patient and verbalized understanding. RDN's contact information was provided and patient was encouraged to contact RDN with questions.
--- NOTE | 2024-07-25 13:50 | P.IMPN_ITS ---
Progress Note: A&P Assessment and plan (1) Acute deep vein thrombosis (DVT) of left upper extremity after procedure: Problem details: -from PICC line insertion/trauma. Continue PICC line in place while treating DVT. Switch from enoxaparin to apixaban for 3 months course of treatment Status: Acute (2) Ileus: Problem details: -post-op; slow improvement -having stools, passing gas Now tolerating oral food and fluid. Stop TPN. Possible discharge tomorrow Status: Acute (3) S/P exploratory laparotomy: Problem details: - Lysis of adhesions on 07/11/2024 - postop ileus slowly resolving - NG out 07/17 - advancing diet slowly Regular diet. Stop TPN Status: Acute (4) Diabetes mellitus: Problem details: continue bedside glucose monitoring; continue SSI Status: Acute (5) Moderate protein-calorie malnutrition: Problem details: - minimal oral intake for the past 2 weeks as of 07/14/2024 - TPN initiated 07/14/2024. TPN discontinued 07/25/2024 and now eating regular diet Status: Acute Plan Continue in hospital for 1 more day. If tolerating p.o. food and fluid well will discharge to home tomorrow. Time Spent With Patient Total time spent: Total time spent today is 40 minutes in evaluation management, discussing with patient and his and surgery ongoing evaluation management Subjective Date Seen: 07/25/24 Interval history: 79-year-old male admitted to the hospital on July 08 with persistent vomiting as well as some diarrhea. At the time of admission the cause for his symptoms were unclear. CT scan showed mildly dilated small bowel loops without a definite transition point. Initially managed conservatively but he did not improve. Taken to the OR by Dr. Lu on July 11 where he had exploratory laparotomy and lysis of adhesions. Postoperatively he has had a slow recovery with slow return of bowel activity and tolerance of oral fluids. Nutrition support with TPN. He has had no emesis in the last 2 and half days. Occasionally feels full with nausea after eating. Abdominal pain is well controlled. Ambulating well. H aving daily bowel movements. Still on TPN Exam Narrative: Exam Narrative: He is alert and appears in no distress. Respirations are clear to auscultation. Cardiovascular: S1, S2, regular rate and rhythm. No murmur gallop or rub. Abdomen: Bowel sounds active. Abdomen is soft. Minimal low abdominal tenderness. Incision is clean and dry without erythema. Const: Vital Signs, click to edit/add: Vital Signs - 24 hr 07/24/24 15:00 07/24/24 15:00 07/24/24 15:00 Temperature 98.4 F Pulse Rate [Pulse Oximeter] 97 97 Respiratory Rate 20 20 20 Blood Pressure [Le ft Arm] Blood Pressure [Ri ght Arm] 136/80 Pulse Oximetry 94 97 Oxygen Delivery Me thod Room Air Room Air Oxygen Flow Rate 0 0 07/24/24 19:14 07/24/24 22:23 07/24/24 22:23 Temperature 97.4 F L Pulse Rate [Pulse Oximeter] 101 H 101 H Respiratory Rate 16 16 16 Blood Pressure [Le ft Arm] Blood Pressure [Ri ght Arm] 141/70 H Pulse Oximetry 97 97 Oxygen Delivery Me thod Room Air Room Air Oxygen Flow Rate 0 07/24/24 23:20 07/25/24 01:38 07/25/24 02:38 Temperature 97.6 F 97.6 F 98.2 F Pulse Rate [Pulse Oximeter] 96 98 Respiratory Rate 16 16 Blood Pressure [Le ft Arm] 153/88 H Blood Pressure [Ri ght Arm] 156/79 H Pulse Oximetry 99 96 Oxygen Delivery Me thod Room Air Room Air Oxygen Flow Rate 07/25/24 08:31 07/25/24 08:31 07/25/24 08:31 Temperature 98.5 F Pulse Rate [Pulse Oximeter] 99 96 Respiratory Rate 20 20 20 Blood Pressure [Le ft Arm] Blood Pressure [Ri ght Arm] 158/112 H Pulse Oximetry 96 96 Oxygen Delivery Me thod Room Air Room Air Oxygen Flow Rate 07/25/24 08:33 07/25/24 11:34 Temperature 97.8 F Pulse Rate [Pulse Oximeter] 96 99 Respiratory Rate 22 Blood Pressure [Le ft Arm] Blood Pressure [Ri ght Arm] 171/93 H 148/77 H Pulse Oximetry 97 Oxygen Delivery Me thod Room Air Oxygen Flow Rate Documenting provider has reviewed patient's vital signs: yes Labs Labs: Laboratory Results - last 24 hr 07/25/24 06:18 Sodium 136 Potassium 4.0 Chloride 102 Carbon Dioxide 27 Anion Gap 7 BUN 22 Creatinine 0.9 Estimated Creat Clear 64.84 Estimated GFR 87 Glucose 225 H Calcium 9.0 Phosphorus 3.9 Magnesium 1.8 Total Bilirubin 0.5 AST 28 ALT 47 Alkaline Phosphatase 99 Total Protein 6.0 Albumin 3.1 L
[2024-07-25] MEDS: PANTOPRAZOLE SODIUM 40 MG INJ IVP (14:31)
--- NOTE | 2024-07-25 19:00 | PC.NURSE ---
End of Shift: Patient pleasant and cooperative. Patient vitally stable, lungs clear, BS WNL, PICC intact and SL. Patient independent in room. Patient rates abdominal pain at most 3/10, only scheduled tylenol given. Patient tolerating soft diet, urinating well, and has had atleast 3 soft/loose BMs. Patient has ambulated the halls multiple times. Abdominal incision C/D/I. Blood sugars 252 and 146.
[2024-07-25] MEDS: LATANOPROST 0.005% OPHTH 1 DROP EYE-BOTH (20:51)
[2024-07-25] MEDS: SODIUM CHLORIDE 0.9 % (FLUSH) 10 ML SYRINGE 5 ML IVF (20:52)
[2024-07-26] MEDS: ACETAMINOPHEN 650 MG TABLET ER 1300 MG PO ×2 (01:56→08:54)
[2024-07-26 01:59] VITALS: BP 160/95; PULSE 95; RESP 18; TEMP 36.7; O2SAT 97
--- NOTE | 2024-07-26 06:04 | PC.NURSE ---
End of shift : Pt AXO x3, cooperative, and pleasant. Pt denies CP/SOB/N/V/D/PAIN throughout the shift. PICC intact and patent, SL. Pt indep in room with walker. Pt was walking during shift out in the hallways. Abdominal incision CDI. Pt is continent of the bladder. Pt is tolerating diet/fluids well. Pt appears resting watching television with call light in reach. ?
[2024-07-26 06:42] LABS: Basophils Absolute Auto 0.05 K/uL (0.00-0.30); Basophils Percent Auto 0.6 % (0.0-3.0); Eosinophils Absolute Auto 0.35 K/uL (0.00-0.50); Eosinophils Percent Auto 4.3 % (0.0-7.0); Hematocrit 33.9 % (37.0-53.0); Hemoglobin* 10.6 gm/dL (13.5-17.5); Immature Granulocytes Abs Auto 0.02 K/uL (0.00-0.30); Immature Granulocytes Pct Auto 0.2 %; Lymphocytes Absolute Auto 2.28 K/uL (0.90-2.90); Lymphocytes Percent Auto 28.2 % (20-44); Mean Corpuscular HGB Conc 31 gm/dL (32-36); Mean Corpuscular Hemoglobin 28 pg (26-34); Mean Corpuscular Volume 89 fL (80-100); Monocytes Percent Auto 8.8 % (0.0-11.0); Neutrophils Absolute Auto 4.67 K/uL (1.7-7.0); Neutrophils Percent Auto 57.9 % (42.0-72.0); Platelet Count* 296 K/uL (140-440); RDW Coefficient of Variation % 14.9 % (11.5-15.5); White Blood Count* 8.08 K/uL (4.50-11.00)
[2024-07-26 06:46] LABS: Chloride* 103 mmol/L (96-114); Potassium* 4.2 mmol/L (3.6-5.1); Slide Review Reflex No; Sodium* 136 mmol/L (135-149)
[2024-07-26 06:48] LABS: Est. Creatinine Clearance* 64.84; Estimated Glomerular Filt Rate 77 ml/min
[2024-07-26 06:49] LABS: Anion Gap 6 mEq/L (7-15); Blood Urea Nitrogen* 19 mg/dL (7-30); Carbon Dioxide* 27 mmol/L (20-32); Glucose* 142 mg/dL (60-115); Triglycerides* 179 mg/dL (40-149)
[2024-07-26 06:50] LABS: Magnesium* 1.7 mg/dL (1.5-2.6); Phosphorus* 3.6 mg/dL (2.5-4.5)
[2024-07-26 08:38] LABS: INR 1.38 (0.91-1.10); Prothrombin Time 17.9 Seconds
[2024-07-26] MEDS: ONDANSETRON ODT 4 MG TAB PO (08:43)
[2024-07-26 08:45] VITALS: BP 145/70; PULSE 88; RESP 16; TEMP 37.3; O2SAT 95
[2024-07-26] MEDS: METFORMIN ER 500 MG 1000 MG PO (08:47)
[2024-07-26] MEDS: APIXABAN 5 MG TABLET PO (08:48)
[2024-07-26] MEDS: GLIMEPIRIDE 1 MG TABLET 2 MG PO (08:48)
[2024-07-26] MEDS: FINASTERIDE 5 MG TABLET PO (08:48)
[2024-07-26] MEDS: lisinopriL 20 MG TABLET PO (08:49)
[2024-07-26] MEDS: ATORVASTATIN 10 MG TABLET PO (08:49)
[2024-07-26] MEDS: METOPROLOL SUCCINATE (XL) 50 MG TAB PO (08:49)
[2024-07-26] MEDS: AMLODIPINE 10 MG TABLET PO (08:49)
[2024-07-26] MEDS: SODIUM CHLORIDE 0.9 % (FLUSH) 10 ML SYRINGE 5 ML IVF (08:50)
[2024-07-26] MEDS: timoloL maleate 0.5 % 1 DROP EYE-BOTH (08:50)
--- NOTE | 2024-07-26 09:15 | PM.GSPN ---
Subjective Subjective Date Seen: 07/26/24 Interval history: Juan Manuel is doing well today. Tolerating a soft diet without difficulty. Did not have much nausea yesterday though he states tomato soup did not sit very well with him. He did not receive Zofran 8 yesterday. He continues to have antegrade bowel function. Minimal pain, controlled with Tylenol. Exam Narrative: Exam Narrative: General: No acute distress Abdomen: Soft, nontender, protuberant. Incision without erythema. Const: Vital Signs, click to edit/add: Vital Signs - 24 hr 07/25/24 11:34 07/25/24 15:00 07/25/24 15:00 Temperature 97.8 F Pulse Rate [Pulse Oximeter] 99 100 Respiratory Rate 22 24 24 Blood Pressure [Ri ght Arm] 148/77 H Pulse Oximetry 97 96 Oxygen Delivery Me thod Room Air Room Air Oxygen Flow Rate 07/25/24 15:03 07/25/24 15:12 07/25/24 19:00 Temperature 98 F 98.4 F Pulse Rate [Pulse Oximeter] 100 100 96 Respiratory Rate 24 20 Blood Pressure [Ri ght Arm] 158/96 H 163/101 H 145/82 H Pulse Oximetry 96 98 Oxygen Delivery Me thod Room Air Room Air Oxygen Flow Rate 07/25/24 20:30 07/25/24 20:30 07/25/24 23:00 Temperature 98.2 F Pulse Rate [Pulse Oximeter] 96 92 Respiratory Rate 20 18 Blood Pressure [Ri ght Arm] 151/86 H Pulse Oximetry 98 95 Oxygen Delivery Me thod Room Air Room Air Oxygen Flow Rate 0 0 07/26/24 01:59 07/26/24 08:45 Temperature 98.1 F 99.1 F Pulse Rate [Pulse Oximeter] 95 88 Respiratory Rate 18 16 Blood Pressure [Ri ght Arm] 160/95 H 145/70 H Pulse Oximetry 97 95 Oxygen Delivery Me thod Room Air Room Air Oxygen Flow Rate 0 Progress Note:A&P Assessment and plan (1) Acute deep vein thrombosis (DVT) of left upper extremity after procedure: Status: Acute (2) Ileus: Status: Acute (3) Peripheral edema: Status: Acute (4) S/P exploratory laparotomy: Status: Acute (5) Esophagitis: Status: Acute Plan The patient is a 79-year-old male status post exploratory laparotomy, and lysis of adhesions for presumed bowel obstruction now postop day 14 with prolonged ileus which has resolved. Has ongoing intermittent nausea. He did come in with this symptom, so therefore it seems as though he potentially has some degree of delayed gastric emptying or reflux that could be causing his discomfort. -he has had reliable antegrade bowel function now for a week. I think it is reasonable for him to discharge home. -he can follow up me in clinic in 2 weeks. -he should follow up with his primary care provider. -continue anticoagulation for catheter associated thrombus per guidelines -recommend discharge home on PPI as well as p.r.n. Zofran if necessary. The patient understands that if he is taking Zofran regularly then he should return to be seen.
[2024-07-26 09:42] VITALS: O2SAT 95
--- NOTE | 2024-07-26 10:20 | PC.NURSE ---
PICC line discontinued. patient tolerated well. Arm circumference post PICC removal was 35cm. PICC catheter length was 53cm. Catheter tip was intact. Patient denies shortness of breath or chest pain. Bleeding is controlled. Occlusive dressing was applied and instructed patient to leave on for 24 hours.
--- NOTE | 2024-07-26 11:52 | PC.NURSE ---
End of shift note: Patient has been up independently in room and in halls with assist of a walker. Voiding and passing flatus. LBM yesterday. Did have some mild nausea this morning but was taken care of with ODT celestino. PICC line removed without difficulty. Dressing is clean dry and intact. Incision is clean, dry and intact. Steristrips present. Sore on bottom is healing. Changed Mepilex dressing on left buttock, removed right side. VSS. Patient planning to DC this afternoon with . Has own walker.
--- NOTE | 2024-07-26 12:05 | PM.DS1 ---
DS: Providers Provider Date Seen: 07/26/24 Date of admission: 07/11/24 09:12 Primary care physician: Tino Sigala MD Admitting Clinician: Jake Mcleod MD Attending Physician on discharge: Jake Mcleod MD Date of Discharge: 07/26/24 DS: Diagnosis Discharge Diagnosis (1) Bowel obstruction: Status: Acute Problem details: Prolonged course of bowel obstruction symptoms. Failed conservative management. Laparotomy with lysis of adhesions on July 11. Postop ileus. TPN pending adequate p.o. nutrition (2) S/P exploratory laparotomy: Status: Acute Problem details: - Lysis of adhesions on 07/11/2024 - postop ileus slowly resolving - NG out 07/17 - Tolerating normal diet (3) Ileus: Status: Acute Problem details: -post-op; slow improvement -having stools, passing gas Now tolerating oral food and fluid. (4) Acute deep vein thrombosis (DVT) of left upper extremity after procedure: Status: Acute Problem details: -from PICC line insertion/trauma. PICC line removed at discharge. Switch from enoxaparin to apixaban for 3 months course of treatment (5) Esophagitis: Status: Acute Problem details: Recent history of heartburn with CT findings of mild thickening in the distal esophagus with a small amount of fluid in the esophagus. (6) Moderate protein-calorie malnutrition: Status: Acute Problem details: - minimal oral intake for the past 2 weeks as of 07/14/2024 - TPN initiated 07/14/2024. TPN discontinued 07/25/2024 and now eating regular diet (7) Physical deconditioning: Status: Acute Problem details: -working with PT and OT. Continue to encourage ambulation throughout the day (8) Peripheral edema: Status: Acute Problem details: LUE >> RUE. will r/o VTE with bedside u/s PICC line is flushing fine; no evidence of cellulitis or leaking. if DVT neg (has been on lovenox 40mg daily) will add compression wrap. (9) BPH (benign prostatic hyperplasia): Status: Acute Problem details: Difficulty placing Cobian catheter for surgery. Longstanding urinary symptoms. Previously on oxybutynin but this was stopped in the hospital. Possibly contributing to poor intestinal motility.. If ongoing symptoms consider urologic referral. DS: Summary Hospital Course Hospital Course: 79-year-old male admitted to the hospital on July 08 with persistent vomiting as well as some diarrhea. At the time of admission the cause for his symptoms were unclear. CT scan showed mildly dilated small bowel loops without a definite transition point. Initially managed conservatively but he did not improve. Taken to the OR by Dr. Lu on July 11 where he had exploratory laparotomy and lysis of adhesions. Postoperatively he has had a slow recovery with slow return of bowel activity and tolerance of oral fluids. Nutrition support with TPN. PICC line was placed for IV access and TPN. He developed a DVT from the PICC line. PICC line removed at discharge. Continue anticoagulation for 3 months with apixaban. He had pre-existing urinary problems prior to hospitalization. He was on Ditropan. This was discontinued in the hospital without obvious worsening of his urinary symptoms. If anything he thought his urine stream is better off Ditropan. Will discharge without Ditropan due to its adverse effects on bowel motility For the last 3 days he has tolerated oral food and fluid. TPN discontinued. Bowel function is normal. Abdominal pain is well controlled. Status at Discharge Functional status at discharge: uses cane/walker Overall status at discharge: patient is progressing back to baseline Time Spent with Patient Time attestation: Total time spent providing and/or coordinating discharge services: 40 minutes Time spent: Greater than 30 minutes Exam Narrative: Exam Narrative: He is alert and appears in no distress. Bowel sounds active. Abdomen is soft without tenderness. Breathing is unlabored. Ambulating well in the hatch Const: Vital Signs, click to edit/add: Vital Signs - 24 hr 07/25/24 15:00 07/25/24 15:00 07/25/24 15:03 Temperature Pulse Rate [Pulse Oximeter] 100 100 Respiratory Rate 24 24 Blood Pressure [Ri ght Arm] 158/96 H Pulse Oximetry 96 Oxygen Delivery Me thod Room Air Oxygen Flow Rate 07/25/24 15:12 07/25/24 19:00 07/25/24 20:30 Temperature 98 F 98.4 F Pulse Rate [Pulse Oximeter] 100 96 96 Respiratory Rate 24 20 Blood Pressure [Ri ght Arm] 163/101 H 145/82 H Pulse Oximetry 96 98 Oxygen Delivery Me thod Room Air Room Air Oxygen Flow Rate 07/25/24 20:30 07/25/24 23:00 07/26/24 01:59 Temperature 98.2 F 98.1 F Pulse Rate [Pulse Oximeter] 92 95 Respiratory Rate 20 18 18 Blood Pressure [Ri ght Arm] 151/86 H 160/95 H Pulse Oximetry 98 95 97 Oxygen Delivery Me thod Room Air Room Air Room Air Oxygen Flow Rate 0 0 0 07/26/24 08:45 07/26/24 09:42 Temperature 99.1 F Pulse Rate [Pulse Oximeter] 88 Respiratory Rate 16 Blood Pressure [Ri ght Arm] 145/70 H Pulse Oximetry 95 95 Oxygen Delivery Me thod Room Air Room Air Oxygen Flow Rate Documenting provider has reviewed patient's vital signs: yes DS: Data Data Completed and Pending Labs on day of discharge: Labs from last 24 hours 07/26/24 06:26 WBC 8.08 RBC 3.80 L Hgb 10.6 L Hct 33.9 L MCV 89 MCH 28 MCHC 31 L RDW Coeff of Kamlesh 14.9 Plt Count 296 Neut % (Auto) 57.9 Lymph % (Auto) 28.2 Hand % (Auto) 8.8 Eos % (Auto) 4.3 Baso % (Auto) 0.6 Neut # (Auto) 4.67 Lymph # (Auto) 2.28 Hand # (Auto) 0.70 Eos # (Auto) 0.35 Baso # (Auto) 0.05 Abs Immat Gran (auto) 0.02 Imm/Tot Granulo (auto) 0.2 INR 1.38 H Sodium 136 Potassium 4.2 Chloride 103 Carbon Dioxide 27 Anion Gap 6 L BUN 19 Creatinine 1.0 Estimated Creat Clear 64.84 Estimated GFR 77 Glucose 142 H Calcium 9.0 Phosphorus 3.6 Magnesium 1.7 Prealbumin Pending Triglycerides 179 H Discharge Plan Discharge Disposition: Home, Self-Care Date of Admission: 07/11/24 09:12 Attending Provider on Discharge: Jake Mcleod Consulting Providers: Urszula Lu Primary Care Provider: Tino Sigala Condition: Improved Anticipated Discharge Date/Time: 07/26/24 10:00 Discharge Medications: New Eliquis 5 mg Tablet 5 mg PO BID Qty: 60 2RF ondansetron 4 mg tablet,disintegrating 4 mg PO Q8H Qty: 15 0RF omeprazole 40 mg capsule,delayed release(DR/EC) 40 mg PO DAILY Qty: 30 2RF Continued trazodone 50 mg tablet 100 mg PO HS PRN atorvastatin 10 mg tablet 10 mg PO DAILY metoprolol succinate 50 mg tablet extended release 24 hr 50 mg PO DAILY lisinopril 20 mg tablet 20 mg PO DAILY glimepiride 2 mg tablet 2 mg PO DAILY amlodipine 10 mg tablet 10 mg PO DAILY hydrochlorothiazide 25 mg tablet 25 mg PO DAILY timolol maleate 0.5 % drops 1 drp ophthalmic (eye) Q12H ketoconazole 2 % cream 1 applic topical DAILY Rx Instructions: 1-2 TMES DAILY metformin 500 mg tablet extended release 24 hr 1,000 mg PO BID finasteride 5 mg tablet 5 mg PO DAILY latanoprost 0.005 % drops 1 drp ophthalmic (eye) HS Discontinued oxybutynin chloride 5 mg tablet 5 mg PO TID Discharge Orders: Discharge Order (Routine); Ordered 07/26/24 Ordered By: Jake Mcleod Patient Education: Omeprazole (By mouth), Ondansetron (By mouth), Apixaban (By mouth), Ileus (DC), Exploratory Laparotomy (DC) Additional Instructions: Wound care: Your sutures are under the skin and will dissolve over time. Okay to remove Steri-Strips (white bandages from incision) OK to shower. Okay to bathe underwater if needed Apply ice to the area as needed for swelling. It is also OK to use a heating pad if this provides more comfort to you. Follow-up Follow up with Dr. Lu in 2-3 weeks Please call if you are experiencing severe pain, nausea, vomiting, difficulty urinating, fever or have not had bowel movement in 4 days. Activity Level: Activity as Tolerated Activity Detail: No lifting more than 20 lb for 2 weeks from the date of discharge Discharge Diet: Regular Follow Up Appointments: Urszula Lu MD [Staff Physician] - 08/16/24 1:45 pm ([facility] for follow up) QASIM ALEGRIA DO [Referring] - (1-2 weeks. ) Tino Sigala MD [Primary Care Provider] - 08/04/24 12:50 pm ([facility] for follow up) [facility] Inst[facility]
[2024-07-28 11:06] LABS: Prealbumin 20.9 mg/dL (20.0-40.0)
== END 2024-07-26 12:27 | disposition home or self-care (01) | DRG 336 ==
LOC: ED 15:27 → MEDSURG 18:27
PROVIDERS: Family Medicine; Internal Medicine; Surgery; Admitting Provider Family Medicine; Emergency Provider Emergency Medicine; PCP Family Medicine; Visit Provider Family Medicine
PROC: 0DN80ZZ Release Small Intestine, Open Approach (ICD-10-PCS; CPT 49000; principal; 2024-07-11 08:45)
DX: K56.50 Intestinal adhesions [bands], unspecified as to partial versus complete obstruction (principal); E44.0 Moderate protein-calorie malnutrition; N17.9 Acute kidney failure, unspecified; K91.89 Other postprocedural complications and disorders of digestive system; T82.868A Thrombosis due to vascular prosthetic devices, implants and grafts, initial encounter; I82.B12 Acute embolism and thrombosis of left subclavian vein; G89.18 Other acute postprocedural pain; R11.2 Nausea with vomiting, unspecified; R60.9 Edema, unspecified; K20.90 Esophagitis, unspecified without bleeding; K56.7 Ileus, unspecified; E86.0 Dehydration; E87.6 Hypokalemia; R00.0 Tachycardia, unspecified; E11.9 Type 2 diabetes mellitus without complications; Z79.84 Long term (current) use of oral hypoglycemic drugs; I10 Essential (primary) hypertension; E66.9 Obesity, unspecified; G47.30 Sleep apnea, unspecified; K76.0 Fatty (change of) liver, not elsewhere classified; Z68.36 Body mass index [BMI] 36.0-36.9, adult; N40.1 Benign prostatic hyperplasia with lower urinary tract symptoms; E78.5 Hyperlipidemia, unspecified
CPT/HCPCS: 00840; 36415; 36573; 51798; 64488; 71045; 74018; 74177; 76942; 80048; 80053; 80061; 80069; 81001; 82962; 83605; 83690; 83735; 83986; 84100; 84134; 84478; 84484; 85025; 85027; 85610; 86140; 86850; 86900; 86901; 87338; 87493; 93005; 93971; 97110; 97116; 97162; 97166; 97530; 97535; 99140; 99284; A4221; A9270; B4185; B4189; C1751; C9290; G0378; J0131; J0330; J0665; J0780; J1100; J1170; J1650; J2405; J2470; J2543; J2704; J2765; J3010; J3475; J3480; J3490; J7030; J7120; Q9967

== ENCOUNTER 2025-07-14 14:30 | Outpatient (RCR) | payer MEDICARE, BC, SELFPAY | END 2025-08-22 08:01 | disposition home or self-care (01) | PROVIDERS: PCP Family Medicine; Visit Provider Family Medicine | DX: M53.3 Sacrococcygeal disorders, not elsewhere classified (principal); Z51.89 Encounter for other specified aftercare | CPT/HCPCS: 97110; 97140; 97161 ==